=== PATIENT | female | born 1970 | race African-American/Black ===

== ENCOUNTER 2017-02-01 21:01 | Emergency (ER) | payer OTHER ==
[~2017-02-01 21:01] MED LIST: HYDR-971 PO; NAPR500T PO; NITR100C62 PO
[2017-02-01] MEDS ORDERED: KETOROLAC TROMETHAMINE 30 MG/ML INJ. IV ONE (22:15)
[2017-02-01] MEDS ORDERED: diphenhydrAMINE 50 MG/ML VIAL IVP ONE (22:15)
[2017-02-01] MEDS ORDERED: PROCHLORPERAZINE 10 MG/2 ML VIAL. IV ONE (22:15)
[2017-02-01 23:00] VITALS: BP 168/104
--- NOTE | 2017-02-01 23:09 | PHYS DOC ---
Past Medical History Past Medical History: Hypertension, Migraines Past Surgical History: Other Additional Past Surgical Histo: breast biposy Alcohol Use: None Drug Use: None Adult General Chief Complaint Chief Complaint: HEADACHE HPI HPI Patient is a 46 year old female who presents with gradual onset headache associated with nausea and photophobia developing over the past 3 days exactly like prior migraines. States symptoms are constant, now severe. She denies vision changes, numbness, tingling, weakness, dizziness, chest pain, dyspnea, abdominal pain, diarrhea, fever or chills, injury. Review of Systems Review of Systems Constitutional: Denies fever or chills [] Eyes: Denies change in visual acuity, redness, or eye pain [] HENT: Denies nasal congestion or sore throat [] Respiratory: Denies cough or shortness of breath [] Cardiovascular: No additional information not addressed in HPI [] GI: Denies abdominal pain, nausea, vomiting, bloody stools or diarrhea [] : Denies dysuria or hematuria [] Musculoskeletal: Denies back pain or joint pain [] Integument: Denies rash or skin lesions [] Neurologic: Denies focal weakness or sensory changes [] Endocrine: Denies polyuria or polydipsia [] Current Medications Current Medications Current Medications Medications (Trade) Dose Ordered Sig/Celine Start Time Stop Time Status Last Admin Dose Admin Diphenhydramine HCl (Benadryl) 25 mg 1X ONCE 02/01/17 22:15 02/01/17 22:16 DC 02/01/17 22:36 25 MG Ketorolac Tromethamine (Toradol) 15 mg 1X ONCE 02/01/17 22:15 02/01/17 22:16 DC 02/01/17 22:36 15 MG Prochlorperazine Edisylate (Compazine) 10 mg 1X ONCE 02/01/17 22:15 02/01/17 22:16 DC 02/01/17 22:35 10 MG Allergies Allergies Allergies Coded Allergies Type Severity Reaction Last Updated Verified No Known Drug Allergies 05/24/16 No Physical Exam Physical Exam Constitutional: Well developed, well nourished, mild distress, non-toxic appearance. Appears uncomfortable [] HENT: Normocephalic, atraumatic, bilateral external ears normal, oropharynx moist, no oral exudates, nose normal. [] Eyes: PERRLA, EOMI, conjunctiva normal, no discharge. [] Neck: Normal range of motion, no tenderness, supple. [] Cardiovascular:Heart rate regular rhythm [] Lungs & Thorax: Bilateral breath sounds clear to auscultation [] Abdomen: Bowel sounds normal, soft, no tenderness. [] Skin: Warm, dry, no erythema, no rash. [] Back: Normal range of motion. [] Extremities: No tenderness, ROM intact, no edema. [] Neurologic: Alert and oriented X 3, normal motor function, normal sensory function, no focal deficits noted, cranial nerves II through XII intact. [] Psychologic: Affect normal, judgement normal, mood normal. [] Current Patient Data Vital Signs Vital Signs Date Time Temp Pulse Resp B/P Pulse Ox O2 Delivery O2 Flow Rate FiO2 02/01/17 21:36 97.7 75 16 147/92 99 Room Air 97.7 Course & Med Decision Making Course & Med Decision Making Pertinent Labs and Imaging studies reviewed. (See chart for details) She is feeling better after medications and would like to go home. She is ambulatory with steady gait. Return precautions given. She understands and agrees with plan. Dragon Disclaimer Dragon Disclaimer This electronic medical record was generated, in whole or in part, using a voice recognition dictation system. Departure Departure Impression: Primary Impression: Headache Disposition: 01 HOME, SELF-CARE Condition: STABLE Referrals: MARY CARMONA MD (PCP) MAYRA JACOBS MD Patient Instructions: Migraine Headache, [id number] Additional Instructions: Take Tylenol or ibuprofen as needed for pain. Follow-up with your primary care doctor and neurology clinic. Please call neurology clinic for appointment. Return for any concerns. Problem Qualifiers Primary Impression: Headache Headache type: unspecified Headache chronicity pattern: episodic headache Intractability: not intractable Qualified Code: R51 - Headache Delta GUERRERO MD Feb 01, 2017 23:08
== END 2017-02-01 23:20 | disposition home or self-care (01) ==
LOC: ER 21:01
DX: R51 Headache (principal); G43.909 Migraine, unspecified, not intractable, without status migrainosus; I10 Essential (primary) hypertension
CPT/HCPCS: 96374; 96375; 99284; J0780; J1200; J1885

== ENCOUNTER → 2017-06-01 | Outpatient (CLI) | payer OTHER ==
--- NOTE | 2017-06-02 08:28 | RAD ---
DATE: 06/01/2017 EXAM: DIGITAL SCREEN BILAT W/CAD HISTORY: 46-year-old female for routine screening. Biopsy of the left breast with benign pathology in 2014. COMPARISON: Mammograms from 05/26/2016 and ultrasound from 11/24/2015 This study was interpreted with the benefit of Computerized Aided Detection (CAD ). FINDINGS: Breast Density: HETERO The breast parenchyma Is heterogeneiously dense, which could reduce sensitivity of mammography. Breast parenchyma level C. Redemonstrated are multiple bilateral oval and round masses with circumscribed obscure margins. 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 The left breast mass in the outer quadrant has increased in size measuring 2.4 x 2.0 cm, previously 1.5 x 1.1 cm. The dominant mass in the middle third left breast measures 3.3 x 2.7 cm, previously 2.3 x 1.7 cm. IMPRESSION: Interval increase in size of multiple bilateral oval and round masses. Previous workup demonstrated these to be simple cysts. However, given the size increase, ultrasound is recommended of selected lesions in bilateral breasts. If these are compatible with simple cysts, no further workup needed. BI-RADS CATEGORY: 0 INCOMPLETE: NEED ADDITIONAL IMAGING EVAULATION AND/OR PRIOR MAMMOGRAMS FOR COMPARISON RECOMMENDED FOLLOW-UP: PQRS compliance statement: Patient information was entered into a reminder system with a target due date for the next mammogram. Mammography is a sensitive method for finding small breast cancers, but it does not detect them all and is not a substitute for careful clinical examination. A negative mammogram does not negate a clinically suspicious finding and should not result in delay in biopsying a clinically suspicious abnormality. "Our facility is accredited by the [employer] Mammography Program." MTDD
== END | disposition home or self-care (01) ==
LOC: MAMMO 12:23
PROVIDERS: ATTEND Family Medicine
DX: Z12.31 Encounter for screening mammogram for malignant neoplasm of breast (principal)
CPT/HCPCS: G0202; 77067

== ENCOUNTER → 2017-06-15 | Outpatient (CLI) | payer OTHER ==
--- NOTE | 2017-06-15 08:47 | RAD ---
Indication mass is seen on screening ultrasound. Note is made of a recent mammogram 06/01/2017. On that study several masses were seen in both breasts. In the right breast at the 3:00 position 3 cm from the nipple there is a hypoechoic 3 cm mass compatible with a cyst. At the 9:00 position there are 3 masses, 5 cm from the nipple, also compatible with cysts the largest measuring approximately 2 cm. In the left breast at the 3:00 position 4 cm from the nipple there is an additional hypoechoic mass measuring 2.2 cm compatible with a cyst. At the 4:00 position there is an additional 3 cm mass also compatible with a cyst. The 6:30 position 3 cm from the nipple is an additional 3 cm mass also compatible with a cyst. At the 9:00 position again a 2.4 cm cyst is seen. IMPRESSION: Bilateral breast cysts. Follow-up mammography is suggested in May 2018 BI-RADS 2. Benign findings.
== END | disposition home or self-care (01) ==
LOC: US 07:58
PROVIDERS: ATTEND Family Medicine
DX: R92.8 Other abnormal and inconclusive findings on diagnostic imaging of breast (principal); N60.02 Solitary cyst of left breast; N60.01 Solitary cyst of right breast
CPT/HCPCS: 76641

== ENCOUNTER → 2018-03-10 | Outpatient (CLI) | payer OTHER | END | disposition home or self-care (01) | LOC: KCIC MAMMO 10:02 | DX: R92.2 Inconclusive mammogram (principal) | CPT/HCPCS: 76641; 77066; G0279 ==

== ENCOUNTER → 2018-03-23 | Outpatient (CLI) | payer OTHER ==
[~2018-03-23] MED LIST changes: -HYDR-971 PO; +LIDOCAINE 1% Multi-Dose 50 ML VIAL. INJ; -NAPR500T PO; -NITR100C62 PO
== END | disposition home or self-care (01) ==
LOC: US 11:44
DX: N60.82 Other benign mammary dysplasias of left breast (principal)
CPT/HCPCS: 10160; 19000; 76942; 88112; 88305

== ENCOUNTER 2019-12-03 00:05 | Inpatient (IN) | payer BC, OTHER ==
[~2019-12-03] VITALS: Ht 182.9 cm; Wt 105.0 kg
[~2019-12-03 00:05] MED LIST changes: +HYDR-3164 PO; -LIDOCAINE 1% Multi-Dose 50 ML VIAL. INJ; +NAPR-683 PO; +NITR100C62 PO
[2019-12-03] MEDS ORDERED: ASPIRIN CHEWABLE 81 MG TABLET. PO ONE (00:30)
[2019-12-03] MEDS ORDERED: NITROGLYCERIN SUBLINGUAL 0.4 MG BOTTLE OF 25. SL PRN (00:30)
[2019-12-03 00:44] LABS: BASO # 0.1 x10^3/uL (0.0-0.2); BASO % 1 % (0-3); EOS # 0.2 x10^3/uL (0.0-0.7); EOS % 2 % (0-3); HEMOGLOBIN 11.2 g/dL (12.0-15.5); LYMPH # 2.3 x10^3/uL (1.0-4.8); LYMPH % 24 % (24-48); MEAN CORPUSCULAR HEMOGLOBIN 28 pg (25-35); MEAN CORPUSCULAR HGB CONC 34 g/dL (31-37); MEAN CORPUSCULAR VOLUME 81 fL (79-100); MONO # 0.8 x10^3/uL (0.0-1.1); MONO % 9 % (0-9); NEUT # 6.2 x10^3/uL (1.8-7.7); NEUT % 65 % (31-73); PLATELET COUNT 441 x10^3/uL (140-400); RED BLOOD COUNT 4.07 x10^6/uL (3.50-5.40); RED CELL DISTRIBUTION WIDTH 17.7 % (11.5-14.5); WHITE BLOOD COUNT 9.5 x10^3/uL (4.0-11.0)
[2019-12-03 00:53] LABS: PROTHROMBIN TIME PATIENT 12.4 SEC (11.7-14.0)
[2019-12-03 00:56] LABS: CALCIUM 8.8 mg/dL (8.5-10.1); GFR 71.6; POTASSIUM 3.2 mmol/L (3.5-5.1)
[2019-12-03 01:02] LABS: ALBUMIN 3.3 g/dL (3.4-5.0); ALBUMIN/GLOBULIN RATIO 0.9 (1.0-1.7); MAGNESIUM 1.8 mg/dL (1.8-2.4); TOTAL BILIRUBIN 0.2 mg/dL (0.2-1.0)
--- NOTE | 2019-12-03 01:54 | PHYS DOC ---
Past Medical History Past Medical History: Hypertension, Migraines Past Surgical History: Other Additional Past Surgical Histo: breast biposy Smoking Status: Never Smoker Alcohol Use: None Drug Use: None Adult General Chief Complaint Chief Complaint: CHEST PAIN HPI HPI Patient is a 48 year old female with history of hypertension and migraine who presents with complaint of chest pain. Patient complaining of substernal sharp pain with radiation to her back and left shoulder afte about an hour of exercising at the gym at 1800 tonight as a constant pain and rated her pain 8/10. Patient complaining of shortness of breath, dizziness, palpitation and denies nausea, focal neuro deficit, fever and chills, cough and congestion. She went home and was able to fall asleep but woke up a few minutes prior to arrival to ER with severe substernal chest pain and rated her pain 9/10. Patient denies history of chest pain. Review of Systems Review of Systems Constitutional: Denies fever or chills [] Eyes: Denies change in visual acuity, redness, or eye pain [] HENT: Denies nasal congestion or sore throat [] Respiratory: Denies cough, reports shortness of breath [] Cardiovascular: No additional information not addressed in HPI [] GI: Denies abdominal pain, nausea, vomiting, bloody stools or diarrhea [] : Denies dysuria or hematuria [] Musculoskeletal: Denies back pain or joint pain [] Integument: Denies rash or skin lesions [] Neurologic: Denies headache, focal weakness or sensory changes [] Endocrine: Denies polyuria or polydipsia [] All other systems were reviewed and found to be within normal limits, except as documented in this note. Current Medications Current Medications Current Medications Medications (Trade) Dose Ordered Sig/[facility] Start Time Stop Time Status Last Admin Dose Admin Aspirin (Children'S Aspirin) 324 mg 1X ONCE 12/03/19 00:30 12/03/19 00:34 DC 12/03/19 00:45 324 MG Nitroglycerin (Nitrostat) 0.4 mg PRN Q5MIN PRN 12/03/19 00:30 12/04/19 00:29 DC 12/03/19 00:45 0.4 MG Allergies Allergies Allergies Coded Allergies Type Severity Reaction Last Updated Verified No Known Drug Allergies 05/24/16 No Physical Exam Physical Exam Constitutional: Well developed, well nourished, mild distress, non-toxic appearance. [] HENT: Normocephalic, atraumatic. Eyes: PERRLA, EOMI, conjunctiva normal, no discharge. [] Neck: Normal range of motion, no tenderness, supple, no stridor. [] Cardiovascular:Heart rate regular rhythm, no murmur [] Lungs & Thorax: Bilateral breath sounds clear to auscultation [] Abdomen: Bowel sounds normal, soft, no tenderness, no masses, no pulsatile masses. [] Skin: Warm, dry, no erythema, no rash. [] Back: No tenderness, no CVA tenderness. [] Extremities: No tenderness, no cyanosis, no clubbing, ROM intact, no edema. [] Neurologic: Alert and oriented X 3, no focal deficits noted. [] Psychologic: Affect normal, judgement normal, mood normal. [] Current Patient Data Vital Signs Vital Signs Date Time Temp Pulse Resp B/P (MAP) Pulse Ox O2 Delivery O2 Flow Rate FiO2 12/03/19 07:00 68 16 98 Room Air 12/03/19 04:00 155/86 (109) 12/03/19 00:17 98.6 98.6 Lab Values Laboratory Tests Test 12/03/19 00:23 White Blood Count 9.5 x10^3/uL (4.0-11.0) Red Blood Count 4.07 x10^6/uL (3.50-5.40) Hemoglobin 11.2 g/dL (12.0-15.5) L Hematocrit 33.0 % (36.0-47.0) L Mean Corpuscular Volume 81 fL (79-100) Mean Corpuscular Hemoglobin 28 pg (25-35) Mean Corpuscular Hemoglobin Concent 34 g/dL (31-37) Red Cell Distribution Width 17.7 % (11.5-14.5) H Platelet Count 441 x10^3/uL (140-400) H Neutrophils (%) (Auto) 65 % (31-73) Lymphocytes (%) (Auto) 24 % (24-48) Monocytes (%) (Auto) 9 % (0-9) Eosinophils (%) (Auto) 2 % (0-3) Basophils (%) (Auto) 1 % (0-3) Neutrophils # (Auto) 6.2 x10^3/uL (1.8-7.7) Lymphocytes # (Auto) 2.3 x10^3/uL (1.0-4.8) Monocytes # (Auto) 0.8 x10^3/uL (0.0-1.1) Eosinophils # (Auto) 0.2 x10^3/uL (0.0-0.7) Basophils # (Auto) 0.1 x10^3/uL (0.0-0.2) Prothrombin Time 12.4 SEC (11.7-14.0) Prothrombin Time INR 1.0 (0.8-1.1) Sodium Level 142 mmol/L (136-145) Potassium Level 3.2 mmol/L (3.5-5.1) L Chloride Level 107 mmol/L (98-107) Carbon Dioxide Level 26 mmol/L (21-32) Anion Gap 9 (6-14) Blood Urea Nitrogen 13 mg/dL (7-20) Creatinine 1.0 mg/dL (0.6-1.0) Estimated GFR (Cockcroft-Gault) 71.6 BUN/Creatinine Ratio 13 (6-20) Glucose Level 112 mg/dL (70-99) H Calcium Level 8.8 mg/dL (8.5-10.1) Magnesium Level 1.8 mg/dL (1.8-2.4) Total Bilirubin 0.2 mg/dL (0.2-1.0) Aspartate Amino Transferase (AST) 33 U/L (15-37) Alanine Aminotransferase (ALT) 33 U/L (14-59) Alkaline Phosphatase 73 U/L (46-116) Creatine Kinase 903 U/L (26-192) H Troponin I Quantitative < 0.017 ng/mL (0.000-0.055) XA-Oqc-L-Type Natriuretic Peptide 53 pg/mL (0-124) Total Protein 7.0 g/dL (6.4-8.2) Albumin 3.3 g/dL (3.4-5.0) L Albumin/Globulin Ratio 0.9 (1.0-1.7) L Lipase 155 U/L (73-393) Laboratory Tests 12/03/19 00:23 Laboratory Tests 12/03/19 00:23 EKG EKG EKG interpreted by me. EKG at 0011 showed normal sinus rhythm at rate of 77, lef tward axis, normal ND 04, prolonged QT, nonspecific T-wave abnormality, no acute ST-T wave elevation. Radiology/Procedures Radiology/Procedures [facility] [address] [place] [address] IMAGING REPORT Signed PATIENT: MARYBEL WATERMAN ACCOUNT: [id number] : 1970 LOCATION: ER AGE: 48 SEX: F EXAM STATUS: REG ER ORD. PHYSICIAN: SANTIAGO DE JESUS MD REASON: chest pain PROCEDURE: PORTABLE CHEST 1V Single view chest dated 12/03/2019: Comparison made to 05/24/2016. Clinical Indication: Chest pain. Findings: Single upright portable exam of the chest was performed. Heart size and mediastinal contours are within normal limits given technique. The lungs are clear without evidence of focal consolidation. Vascular interstitium is within normal limits. No apparent pleural effusion or pneumothorax. Impression:: No acute radiographic abnormality. Electronically signed by: Stephane Duron MD (12/03/2019 2:21 AM) [id number] DICTATED and SIGNED BY: STEPHANE DURON MD DATE: 12/03/19 0221 Course & Med Decision Making Course & Med Decision Making Pertinent Labs and Imaging studies reviewed. (See chart for details) Patient requiring admission for further evaluation and treatment. Discussed with Dr. Vega who is in agreement with admission. Discussed findings and plan with patient and family, who acknowledge understanding and agreement. Dragon Disclaimer Dragon Disclaimer This electronic medical record was generated, in whole or in part, using a voice recognition dictation system. Departure Departure Impression: Primary Impression: Acute chest pain Additional Impression: Rhabdomyolysis Disposition: 09 ADMITTED INPATIENT (at 0149) Admitting Physician: PUJA (Dr. Vega accepted admission) Condition: IMPROVED Referrals: CHERI QUINN APRN (PCP) Scripts Pantoprazole Sodium (PROTONIX ) 40 Mg Tablet. 40 MG PO DAILYAC for GERD for 30 Days, #30 TAB Prov: TRUE BRONSON MD 12/04/19 Potassium Chloride (KLOR-CON M20) 20 Meq Tab.er.prt 20 MEQ PO DAILYWBKFT for supplement for 14 Days, #14 TAB.SR Prov: TRUE BRONSON MD 12/04/19 Lisinopril (LISINOPRIL) 5 Mg Tablet 5 MG PO DAILY for blood pressure for 30 Days, #30 TAB Prov: TRUE BRONSON MD 12/04/19 Problem Qualifiers Additional Impression: Rhabdomyolysis Rhabdomyolysis type: non-traumatic Qualified Codes: M62.82 - Rhabdomyolysis SANTIAGO DE JESUS MD Dec 03, 2019 01:54
--- NOTE | 2019-12-03 02:10 | EKG ---
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
--- NOTE | 2019-12-03 02:23 | RAD ---
Single view chest dated 12/03/2019: Comparison made to 05/24/2016. Clinical Indication: Chest pain. Findings: Single upright portable exam of the chest was performed. Heart size and mediastinal contours are within normal limits given technique. The lungs are clear without evidence of focal consolidation. Vascular interstitium is within normal limits. No apparent pleural effusion or pneumothorax. Impression:: No acute radiographic abnormality. Electronically signed by: Stephane Duron MD (12/03/2019 2:21 AM) [id number]
--- NOTE | 2019-12-03 08:46 | PDOC1 ---
History and Physical Date of Admission Date of Admission DATE: 12/03/19 TIME: 08:46 Identification/Chief Complaint Chief Complaint seen in er with atypical chest discomfort, sharp pain, 48 year old female with history of hypertension who presents with complaint of chest pain. complaining of substernal sharp pain with radiation to her back and left shoulder after exercising about an hour exercising at the gym at 1800 tonight as a constant pain and ataxia pain 8/10. complaining of shortness of breath and dizziness and palpitation and denies nausea, focal neuro deficit, fever and chills, cough and congestion some ruq pain after meals Past Medical History Past Medical History Past Medical History Past Medical History: Hypertension, Migraines Past Surgical History: Other Additional Past Surgical Histo: breast biposy Smoking Status: Never Smoker Alcohol Use: None Drug Use: None fhx obesity Family History Family History: Heart Disease Social History Smoke: <1 pack per day ALCOHOL: occassional Drugs: None Current Problem List Problem List Problems Medical Problems: (1) Rhabdomyolysis Status: Acute Current Medications Current Medications Current Medications Aspirin (Children'S Aspirin) 324 mg 1X ONCE PO Last administered on 12/03/19at 00:45; Start 12/03/19 at 00:30; Stop 12/03/19 at 00:34; Status DC Nitroglycerin (Nitrostat) 0.4 mg PRN Q5MIN PRN SL CP RATING > 1/10 Last adminis tered on 12/03/19at 00:45; Start 12/03/19 at 00:30; Stop 12/04/19 at 00:29 Active Scripts Active Macrobid 100 Mg Capsule (Nitrofurantoin Monohyd/M-Cryst) 100 Mg Capsule 1 Cap PO BID Naprosyn (Naproxen) 500 Mg Tablet 1 Tab PO BID Bethany 5-325 Tablet (Acetaminophen/Hydrocodone Bitart) 1 Each Tablet 1 Tab PO PRN Q4-6HRS PRN Allergies Allergies: Coded Allergies: No Known Drug Allergies (Unverified , 05/24/16) ROS Review of System Review of Systems Review of Systems Constitutional: Denies fever or chills [] Eyes: Denies change in visual acuity, redness, or eye pain [] HENT: Denies nasal congestion or sore throat [] Respiratory: Denies cough, reports shortness of breath [] Cardiovascular: No additional information not addressed in HPI [] GI: ruq mild abdominal pain, no nausea, vomiting, bloody stools or diarrhea [] : Denies dysuria or hematuria [] Musculoskeletal: Denies back pain or joint pain [] Integument: Denies rash or skin lesions [] Neurologic: Denies headache, focal weakness or sensory changes [] Endocrine: Denies polyuria or polydipsia [] 14 pt systems were reviewed and found to be within normal limits, except as documented General: No: Chills, Night Sweats, Fatigue, Malaise, Appetite, Other Hematological and Lymphatic: No: Bleeding Problems, Blood Clots, Blood Transfusions, Brusing, Night Sweats, Pallor, Swollen Lymph Nodes, Other Respiratory: No: Cough, Hemoptysis, Orthopnea, Pleuritic Pain, Shortness of breath, SOB with excertion, Sputum Changes, Stridor, Tachypnea, Wheezing, Other Cardiovascular: yes Chest Pain; No Palpitations, No Orthopnea, No Paroxysmal Noc. Dyspnea, No Edema, No Lt Headedness, No Other Physical Exam Physical Exam Physical Exam Physical Exam Constitutional: Well developed, well nourished, mild distress, non-toxic appearance. [] HENT: Normocephalic, atraumatic. Eyes: PERRLA, EOMI, conjunctiva normal, no discharge. [] Neck: Normal range of motion, no tenderness, supple, no stridor. [] Cardiovascular:Heart rate regular rhythm, no murmur [] Lungs & Thorax: Bilateral breath sounds clear to auscultation [] Abdomen: Bowel sounds normal, soft, no tenderness, no masses, no pulsatile masses. [] Skin: Warm, dry, no erythema, no rash. [] Back: No tenderness, no CVA tenderness. [] Extremities: No tenderness, no cyanosis, no clubbing, ROM intact, no edema. [] Neurologic: Alert and oriented X 3, no focal deficits noted. [] Psychologic: Affect normal, judgement normal, mood normal. [] General: Alert, Oriented X3, Cooperative HEENT: Atraumatic, EOMI, Mucous membr. moist/pink Lungs: Clear to auscultation, Normal air movement Heart: RRR Breasts: Not examined Abdomen: Soft Rectal Exam: not examined PELVIC: Examination not indicated Extremities: No cyanosis, No edema Neuro: Normal speech, Cranial nerves 3-12 NL Psych/Mental Status: Mental status NL, Mood NL Vitals Vitals Vital Signs Date Time Temp Pulse Resp B/P (MAP) Pulse Ox O2 Delivery O2 Flow Rate FiO2 12/03/19 04:00 87 18 155/86 (109) 100 Room Air 12/03/19 00:17 98.6 98.6 Labs Labs Laboratory Tests Test 12/03/19 00:23 White Blood Count 9.5 x10^3/uL (4.0-11.0) Red Blood Count 4.07 x10^6/uL (3.50-5.40) Hemoglobin 11.2 g/dL (12.0-15.5) Hematocrit 33.0 % (36.0-47.0) Mean Corpuscular Volume 81 fL (79-100) Mean Corpuscular Hemoglobin 28 pg (25-35) Mean Corpuscular Hemoglobin Concent 34 g/dL (31-37) Red Cell Distribution Width 17.7 % (11.5-14.5) Platelet Count 441 x10^3/uL (140-400) Neutrophils (%) (Auto) 65 % (31-73) Lymphocytes (%) (Auto) 24 % (24-48) Monocytes (%) (Auto) 9 % (0-9) Eosinophils (%) (Auto) 2 % (0-3) Basophils (%) (Auto) 1 % (0-3) Neutrophils # (Auto) 6.2 x10^3/uL (1.8-7.7) Lymphocytes # (Auto) 2.3 x10^3/uL (1.0-4.8) Monocytes # (Auto) 0.8 x10^3/uL (0.0-1.1) Eosinophils # (Auto) 0.2 x10^3/uL (0.0-0.7) Basophils # (Auto) 0.1 x10^3/uL (0.0-0.2) Prothrombin Time 12.4 SEC (11.7-14.0) Prothromb Time International Ratio 1.0 (0.8-1.1) Sodium Level 142 mmol/L (136-145) Potassium Level 3.2 mmol/L (3.5-5.1) Chloride Level 107 mmol/L (98-107) Carbon Dioxide Level 26 mmol/L (21-32) Anion Gap 9 (6-14) Blood Urea Nitrogen 13 mg/dL (7-20) Creatinine 1.0 mg/dL (0.6-1.0) Estimated GFR (Cockcroft-Gault) 71.6 BUN/Creatinine Ratio 13 (6-20) Glucose Level 112 mg/dL (70-99) Calcium Level 8.8 mg/dL (8.5-10.1) Magnesium Level 1.8 mg/dL (1.8-2.4) Total Bilirubin 0.2 mg/dL (0.2-1.0) Aspartate Amino Transf (AST/SGOT) 33 U/L (15-37) Alanine Aminotransferase (ALT/SGPT) 33 U/L (14-59) Alkaline Phosphatase 73 U/L (46-116) Creatine Kinase 903 U/L (26-192) Troponin I Quantitative < 0.017 ng/mL (0.000-0.055) WM-Jbi-W-Type Natriuretic Peptide 53 pg/mL (0-124) Total Protein 7.0 g/dL (6.4-8.2) Albumin 3.3 g/dL (3.4-5.0) Albumin/Globulin Ratio 0.9 (1.0-1.7) Lipase 155 U/L (73-393) Laboratory Tests Test 12/03/19 00:23 White Blood Count 9.5 x10^3/uL (4.0-11.0) Red Blood Count 4.07 x10^6/uL (3.50-5.40) Hemoglobin 11.2 g/dL (12.0-15.5) Hematocrit 33.0 % (36.0-47.0) Mean Corpuscular Volume 81 fL (79-100) Mean Corpuscular Hemoglobin 28 pg (25-35) Mean Corpuscular Hemoglobin Concent 34 g/dL (31-37) Red Cell Distribution Width 17.7 % (11.5-14.5) Platelet Count 441 x10^3/uL (140-400) Neutrophils (%) (Auto) 65 % (31-73) Lymphocytes (%) (Auto) 24 % (24-48) Monocytes (%) (Auto) 9 % (0-9) Eosinophils (%) (Auto) 2 % (0-3) Basophils (%) (Auto) 1 % (0-3) Neutrophils # (Auto) 6.2 x10^3/uL (1.8-7.7) Lymphocytes # (Auto) 2.3 x10^3/uL (1.0-4.8) Monocytes # (Auto) 0.8 x10^3/uL (0.0-1.1) Eosinophils # (Auto) 0.2 x10^3/uL (0.0-0.7) Basophils # (Auto) 0.1 x10^3/uL (0.0-0.2) Prothrombin Time 12.4 SEC (11.7-14.0) Prothromb Time International Ratio 1.0 (0.8-1.1) Sodium Level 142 mmol/L (136-145) Potassium Level 3.2 mmol/L (3.5-5.1) Chloride Level 107 mmol/L (98-107) Carbon Dioxide Level 26 mmol/L (21-32) Anion Gap 9 (6-14) Blood Urea Nitrogen 13 mg/dL (7-20) Creatinine 1.0 mg/dL (0.6-1.0) Estimated GFR (Cockcroft-Gault) 71.6 BUN/Creatinine Ratio 13 (6-20) Glucose Level 112 mg/dL (70-99) Calcium Level 8.8 mg/dL (8.5-10.1) Magnesium Level 1.8 mg/dL (1.8-2.4) Total Bilirubin 0.2 mg/dL (0.2-1.0) Aspartate Amino Transf (AST/SGOT) 33 U/L (15-37) Alanine Aminotransferase (ALT/SGPT) 33 U/L (14-59) Alkaline Phosphatase 73 U/L (46-116) Creatine Kinase 903 U/L (26-192) Troponin I Quantitative < 0.017 ng/mL (0.000-0.055) XB-Toj-V-Type Natriuretic Peptide 53 pg/mL (0-124) Total Protein 7.0 g/dL (6.4-8.2) Albumin 3.3 g/dL (3.4-5.0) Albumin/Globulin Ratio 0.9 (1.0-1.7) Lipase 155 U/L (73-393) VTE Prophylaxis Ordered VTE Prophylaxis Devices: Yes VTE Pharmacological Prophylaxi: Yes Assessment/Plan Assessment/Plan impression 1. CHEST pain with atypical features 2. morbid obesity 3. possible GERD 4. RUQ discomfort 5. hypertension plan admit cvc cardiology consult gb sono trend troponin i dvt prophylaxis norvasc 5 mg po daily 48 year old female with history of hypertension and mitral who presents with complaint of chest pain. Patient complaining of substernal sharp pain with radiation to her back and left shoulder after exercising about an hour exercising at the gym at 1800 tonight as a constant pain and ataxia pain 8/10. Patient complaining of shortness of breath and dizziness and palpitation and denies nausea, focal neuro deficit, fever and chills, cough and congestion. TRUE BRONSON MD Dec 03, 2019 08:46
[2019-12-03] MEDS ORDERED: HYDROcodone/APAP 5/325MG 1 TAB TABLET PO ONE (09:15)
--- NOTE | 2019-12-03 10:13 | PDOC2 ---
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 Finnegan SOURCE Source: Chart review, Patient HISTORY OF PRESENT ILLNESS HISTORY OF PRESENT ILLNESS This is a 48 yo female who presented secondary to chest pain. Patient reports she has recently been working out. Often intense routine. While at the gym yesterday, began having stabbing pain in her left chest. Associated with dizziness. Was worse with deep breathing. No diaphoresis palpitations, SOA, or n ausea/vomiting. Pain persisted yesterday and was slightly worse when she woke up this morning so she came to the ED for further evaluation and treatment. Left chest is slightly tender upon palpitation. PAST MEDICAL HISTORY Cardiovascular: HTN Heme/Onc: Anemia NOS PAST SURGICAL HISTORY Past Surgical History: No pertinent history FAMILY HISTORY Family History: Diabetes, Hypertension SOCIAL HISTORY Smoke: No ALCOHOL: none Drugs: None Lives: with Family CURRENT MEDICATIONS CURRENT MEDICATIONS Current Medications Medications (Trade) Dose Ordered Sig/Celine Route PRN Reason Start Time Stop Time Status Last Admin Dose Admin Aspirin (Children'S Aspirin) 324 mg 1X ONCE PO 12/03/19 00:30 12/03/19 00:34 DC 12/03/19 00:45 Nitroglycerin (Nitrostat) 0.4 mg PRN Q5MIN PRN SL CP RATING > 1/10 12/03/19 00:30 12/04/19 00:29 12/03/19 00:45 Acetaminophen/ Hydrocodone Bitart (Lortab 5/325) 1 tab 1X ONCE PO 12/03/19 09:15 12/03/19 09:18 DC 12/03/19 09:24 ALLERGIES ALLERGIES: Coded Allergies: No Known Drug Allergies (Unverified , 05/24/16) ROS Review of System 14 point ROS conducted with pertinent positives noted above in HPI PHYSICAL EXAM General: Alert, Oriented X3, Cooperative, No acute distress HEENT: Atraumatic, Mucous membr. moist/pink Lungs: Clear to auscultation, Normal air movement, Other (central chest tenderness) Heart: Regular rate, Normal S1, Normal S2 Abdomen: Soft, No tenderness Extremities: No edema, Normal pulses Skin: No significant lesion Neuro: Normal speech, Sensation intact Psych/Mental Status: Mental status NL, Mood NL MUSCULOSKELETAL: Osteoarthritic changes both hands VITALS/I&O VITALS/I&O: Vital Signs Date Time Temp Pulse Resp B/P (MAP) Pulse Ox O2 Delivery O2 Flow Rate FiO2 12/03/19 04:00 87 18 155/86 (109) 100 Room Air 12/03/19 00:17 98.6 98.6 LABS Lab: Laboratory Tests Test 12/03/19 00:23 White Blood Count 9.5 x10^3/uL (4.0-11.0) Red Blood Count 4.07 x10^6/uL (3.50-5.40) Hemoglobin 11.2 g/dL (12.0-15.5) L Hematocrit 33.0 % (36.0-47.0) L Mean Corpuscular Volume 81 fL (79-100) Mean Corpuscular Hemoglobin 28 pg (25-35) Mean Corpuscular Hemoglobin Concent 34 g/dL (31-37) Red Cell Distribution Width 17.7 % (11.5-14.5) H Platelet Count 441 x10^3/uL (140-400) H Neutrophils (%) (Auto) 65 % (31-73) Lymphocytes (%) (Auto) 24 % (24-48) Monocytes (%) (Auto) 9 % (0-9) Eosinophils (%) (Auto) 2 % (0-3) Basophils (%) (Auto) 1 % (0-3) Neutrophils # (Auto) 6.2 x10^3/uL (1.8-7.7) Lymphocytes # (Auto) 2.3 x10^3/uL (1.0-4.8) Monocytes # (Auto) 0.8 x10^3/uL (0.0-1.1) Eosinophils # (Auto) 0.2 x10^3/uL (0.0-0.7) Basophils # (Auto) 0.1 x10^3/uL (0.0-0.2) Prothrombin Time 12.4 SEC (11.7-14.0) Prothrombin Time INR 1.0 (0.8-1.1) Sodium Level 142 mmol/L (136-145) Potassium Level 3.2 mmol/L (3.5-5.1) L Chloride Level 107 mmol/L (98-107) Carbon Dioxide Level 26 mmol/L (21-32) Anion Gap 9 (6-14) Blood Urea Nitrogen 13 mg/dL (7-20) Creatinine 1.0 mg/dL (0.6-1.0) Estimated GFR (Cockcroft-Gault) 71.6 BUN/Creatinine Ratio 13 (6-20) Glucose Level 112 mg/dL (70-99) H Calcium Level 8.8 mg/dL (8.5-10.1) Magnesium Level 1.8 mg/dL (1.8-2.4) Total Bilirubin 0.2 mg/dL (0.2-1.0) Aspartate Amino Transferase (AST) 33 U/L (15-37) Alanine Aminotransferase (ALT) 33 U/L (14-59) Alkaline Phosphatase 73 U/L (46-116) Creatine Kinase 903 U/L (26-192) H Troponin I Quantitative < 0.017 ng/mL (0.000-0.055) HO-Hex-I-Type Natriuretic Peptide 53 pg/mL (0-124) Total Protein 7.0 g/dL (6.4-8.2) Albumin 3.3 g/dL (3.4-5.0) L Albumin/Globulin Ratio 0.9 (1.0-1.7) L Lipase 155 U/L (73-393) Laboratory Tests 12/03/19 00:23 Laboratory Tests 12/03/19 00:23 ASSESSMENT/PLAN ASSESSMENT/PLAN 1. Chest pain, atypical. AMI ruled out. Most probably MSK in origin 2. Elevated CK; has been working out intensely in recent weeks 3. Hypertension; mildly elevated. Has been elevated recently. PCP discussed initiating antiHTN therapy. 4. Hypokalemia Recommendations Lipids Replace K IVFs Echo to assess LV systolic function Start low-dose lisinopril Supportive care KURT ASHLEY MD 12/03/192019: CARDIAC CONSULT ASSESSMENT/PLAN ASSESSMENT/PLAN Patient seen and examined. Agree with FLIGHT AGENT's assessment and plan. CP with atypical features and most probably musculoskeletal OR ruled out Check 2D echo to assess LVF and rule out WMA Ischemic workup could be considered as outpatient Agree with starting lisinopril for better BP control Thank you for our consultation RASHARD BOSTON APRN Dec 03, 2019 10:12 KURT ASHLEY MD Dec 03, 2019 20:20
[2019-12-03] MEDS ORDERED: POTASSIUM CHLORIDE 20 MEQ TABLET.ER. PO ONE ×2 (10:15→14:30)
[2019-12-03 10:37] VITALS: BP 153/95
[2019-12-03 10:42] LABS: CHOLESTEROL/HDL RATIO 2.6
[2019-12-03] MEDS: LISINOPRIL 5 MG TABLET. PO SCH (11:42)
[2019-12-03] MEDS: IV 1/2 NORMAL SALINE 1,000 ML IV SCH (11:43)
[2019-12-03 15:14] VITALS: BP 135/77
[2019-12-03] MEDS ORDERED: HYDROcodone/APAP 5/325MG 1 TAB TABLET PO PRN (17:00)
[2019-12-03 19:00] VITALS: BP 118/84
[2019-12-03 23:00] VITALS: BP 119/76
--- NOTE | 2019-12-04 00:15 | RAD ---
Right upper quadrant ultrasound dated 12/03/2019. No comparison available. Clinical data indication: Pain. FINDINGS: Gallbladder normal in size and echogenicity. No gallbladder wall thickening or pericholecystic fluid. Liver is homogeneous in echogenicity. No focal hepatic mass. Intrahepatic and extra hepatic biliary tree normal in caliber. The common bile duct measures 4 mm. Right kidney measures 11.5 cm in length without hydronephrosis. Left kidney was not imaged. Pancreas is not well evaluated due to overlying bowel gas. Limited imaged portions of the aorta and IVC unremarkable. No significant ascites. IMPRESSION: 1. No acute sonographic abnormality. Electronically signed by: Stephane Duron MD (12/04/2019 12:12 AM) [id number]
[2019-12-04 03:00] VITALS: BP 135/82
[2019-12-04 07:00] VITALS: BP 135/82
[2019-12-04] MEDS: IV 1/2 NORMAL SALINE 1,000 ML IV SCH (08:00)
[2019-12-04] MEDS ORDERED: POTASSIUM CHLORIDE 20 MEQ TABLET.ER. PO SCH (08:00)
--- NOTE | 2019-12-04 08:33 | CARD ---
MR#: [id number] Date of Study: 12/03/2019 Ordering Physician: RASHARD BOSTON, Referring Physician: RASHARD BOSTON, Tech: Deena Gibson APPROVED REPORT EXAM: Two-dimensional and M-mode echocardiogram with Doppler and color Doppler. Other Information Quality : AverageHR: 76bpm INDICATION Chest Pain RISK FACTORS Hypertension 2D DIMENSIONS RVDd2.8 (2.9-3.5cm)Left Atrium(2D)3.5 (1.6-4.0cm) IVSd1.0 (0.7-1.1cm)Aortic Root(2D)2.9 (2.0-3.7cm) LVDd5.2 (3.9-5.9cm)LVOT Diameter2.1 (1.8-2.4cm) PWd1.1 (0.7-1.1cm)LVDs2.6 (2.5-4.0cm) FS (%) 50.8 %SV108.0 ml LVEF(%)81.7 (>50%) Aortic Valve AoV Peak Kwame.163.0cm/sAoV VTI26.3cm AO Peak GR.10.6mmHgLVOT VTI 22.13cm AO Mean GR.5mmHg Mitral Valve MV E Vdwslyup25.6cm/sMV E Peak Gr.4mmHg MV DECEL [id number] A Lnvopblw79.0cm/s MV E Mean Gr.2mmHgE/A Ratio1.3 TDI Lateral E' P. V12.36cm/sMedial E' P. V13.32cm/s E/Lateral E'6.2E/Medial E'5.8 Tricuspid Valve TR P. Vbnwrlrd406ut/sRAP [id number] TR Peak Gr.19oqBwOECG71dlFs Pulmonary Vein S1 Cyltrlug14.2cm/sS2 Dxesdcqp17.12cm/s D2 Hjllbxmu66.1cm/sPVa [id number] LEFT VENTRICLE The left ventricle is normal size. There is normal left ventricular wall thickness. The left ventricu lar systolic function is normal and the ejection fraction is within normal range. The Ejection Fracti on is 60-65%. There is normal LV segmental wall motion. The left ventricular diastolic function and f illing is normal for age. RIGHT VENTRICLE The right ventricle is normal size. There is normal right ventricular wall thickness. The right ventr icular systolic function is normal. ATRIA The left atrium size is normal. The right atrium size is normal. The interatrial septum is intact wit h no evidence for an atrial septal defect or patent foramen ovale as noted on 2-D or Doppler imaging. AORTIC VALVE The aortic valve is normal in structure and function. Doppler and Color Flow revealed no significant aortic regurgitation. There is no significant aortic valvular stenosis. MITRAL VALVE The mitral valve is normal in structure and function. There is no evidence of mitral valve prolapse. There is no mitral valve stenosis. Doppler and Color Flow revealed no mitral valve regurgitation note d. TRICUSPID VALVE The tricuspid valve is normal in structure and function. Doppler and Color Flow revealed trace to mil d tricuspid regurgitation with an estimated PAP of 31 mmHg. There is no tricuspid valve stenosis. PULMONIC VALVE The pulmonary valve is normal in structure and function. Doppler and Color Flow revealed no pulmonic valvular regurgitation. There is no pulmonic valvular stenosis. GREAT VESSELS The aortic root is normal in size. The ascending aorta is normal in size. The IVC is normal in size a nd collapses >50% with inspiration. PERICARDIAL EFFUSION There is no evidence of significant pericardial effusion. Critical Notification Critical Value: No <Conclusion> The left ventricular systolic function is normal and the ejection fraction is within normal range. Th e Ejection Fraction is 60-65%. There is normal LV segmental wall motion. Signed by : James Rouse, Electronically Approved : 12/04/2019 08:33:08
[2019-12-04] MEDS: LISINOPRIL 5 MG TABLET. PO SCH (09:00)
[2019-12-04 09:38] VITALS: BP 135/82
[2019-12-04 09:59] LABS: CALCIUM 8.5 mg/dL (8.5-10.1); CREATININE 0.8 mg/dL (0.6-1.0); GFR 92.6; POTASSIUM 3.8 mmol/L (3.5-5.1)
[2019-12-04 10:45] VITALS: BP 145/78
--- NOTE | 2019-12-04 10:54 | PDOC ---
PROGRESS NOTES History of Present Illness History of Present Illness VTE Prophylaxis Ordered VTE Prophylaxis Devices: Yes VTE Pharmacological Prophylaxi: Yes discharge dx Assessment/Plan impression 1. CHEST pain with atypical features 2. morbid obesity 3. possible GERD 4. RUQ discomfort 5. hypertension plan admit cvc cardiology consult gb sono trend troponin i neg x 3 dvt prophylaxis norvasc 5 mg po daily protonix 40mg po daily d/c planning 27 min Vitals Vitals Vital Signs Date Time Temp Pulse Resp B/P (MAP) Pulse Ox O2 Delivery O2 Flow Rate FiO2 12/04/19 10:45 66 14 145/78 (100) Room Air 12/04/19 07:00 98.0 97 98.0 Physical Exam General: Alert, Oriented X3, Cooperative, No acute distress Heart: Regular rate, Normal S1, Normal S2 Abdomen: Normal bowel sounds, Soft, No tenderness Extremities: No cyanosis, No edema, Normal pulses Skin: No significant lesion Labs LABS Right upper quadrant ultrasound dated 12/03/2019. No comparison available. Clinical data indication: Pain. FINDINGS: Gallbladder normal in size and echogenicity. No gallbladder wall thickening or pericholecystic fluid. Liver is homogeneous in echogenicity. No focal hepatic mass. Intrahepatic and extra hepatic biliary tree normal in caliber. The common bile duct measures 4 mm. Right kidney measures 11.5 cm in length without hydronephrosis. Left kidney was not imaged. Pancreas is not well evaluated due to overlying bowel gas. Limited imaged portions of the aorta and IVC unremarkable. No significant ascites. IMPRESSION: 1. No acute sonographic abnormality. Electronically signed by: Jose Eduardo Duron MD (12/04/2019 12:12 AM) [id number] DICTATED and SIGNED BY: JOSE EDUARDO DURON MD DATE: 12/04/19 0012 Laboratory Tests Test 12/04/19 09:15 Sodium Level 143 mmol/L (136-145) Potassium Level 3.8 mmol/L (3.5-5.1) Chloride Level 107 mmol/L (98-107) Carbon Dioxide Level 28 mmol/L (21-32) Anion Gap 8 (6-14) Blood Urea Nitrogen 9 mg/dL (7-20) Creatinine 0.8 mg/dL (0.6-1.0) Estimated GFR (Cockcroft-Gault) 92.6 Glucose Level 170 mg/dL (70-99) Calcium Level 8.5 mg/dL (8.5-10.1) Creatine Kinase 223 U/L (26-192) Assessment and Plan Assessmemt and Plan Problems Medical Problems: (1) Rhabdomyolysis Status: Acute Comment Review of Relevant I have reviewed the following items livier (where applicable) has been applied. Labs Laboratory Tests Test 12/03/19 00:23 12/03/19 09:55 12/04/19 09:15 White Blood Count 9.5 x10^3/uL (4.0-11.0) Red Blood Count 4.07 x10^6/uL (3.50-5.40) Hemoglobin 11.2 g/dL (12.0-15.5) Hematocrit 33.0 % (36.0-47.0) Mean Corpuscular Volume 81 fL (79-100) Mean Corpuscular Hemoglobin 28 pg (25-35) Mean Corpuscular Hemoglobin Concent 34 g/dL (31-37) Red Cell Distribution Width 17.7 % (11.5-14.5) Platelet Count 441 x10^3/uL (140-400) Neutrophils (%) (Auto) 65 % (31-73) Lymphocytes (%) (Auto) 24 % (24-48) Monocytes (%) (Auto) 9 % (0-9) Eosinophils (%) (Auto) 2 % (0-3) Basophils (%) (Auto) 1 % (0-3) Neutrophils # (Auto) 6.2 x10^3/uL (1.8-7.7) Lymphocytes # (Auto) 2.3 x10^3/uL (1.0-4.8) Monocytes # (Auto) 0.8 x10^3/uL (0.0-1.1) Eosinophils # (Auto) 0.2 x10^3/uL (0.0-0.7) Basophils # (Auto) 0.1 x10^3/uL (0.0-0.2) Prothrombin Time 12.4 SEC (11.7-14.0) Prothromb Time International Ratio 1.0 (0.8-1.1) Sodium Level 142 mmol/L (136-145) 143 mmol/L (136-145) Potassium Level 3.2 mmol/L (3.5-5.1) 3.8 mmol/L (3.5-5.1) Chloride Level 107 mmol/L (98-107) 107 mmol/L (98-107) Carbon Dioxide Level 26 mmol/L (21-32) 28 mmol/L (21-32) Anion Gap 9 (6-14) 8 (6-14) Blood Urea Nitrogen 13 mg/dL (7-20) 9 mg/dL (7-20) Creatinine 1.0 mg/dL (0.6-1.0) 0.8 mg/dL (0.6-1.0) Estimated GFR (Cockcroft-Gault) 71.6 92.6 BUN/Creatinine Ratio 13 (6-20) Glucose Level 112 mg/dL (70-99) 170 mg/dL (70-99) Calcium Level 8.8 mg/dL (8.5-10.1) 8.5 mg/dL (8.5-10.1) Magnesium Level 1.8 mg/dL (1.8-2.4) Total Bilirubin 0.2 mg/dL (0.2-1.0) Aspartate Amino Transf (AST/SGOT) 33 U/L (15-37) Alanine Aminotransferase (ALT/SGPT) 33 U/L (14-59) Alkaline Phosphatase 73 U/L (46-116) Creatine Kinase 903 U/L (26-192) 223 U/L (26-192) Troponin I Quantitative < 0.017 ng/mL (0.000-0.055) < 0.017 ng/mL (0.000-0.055) XT-Ypc-M-Type Natriuretic Peptide 53 pg/mL (0-124) Total Protein 7.0 g/dL (6.4-8.2) Albumin 3.3 g/dL (3.4-5.0) Albumin/Globulin Ratio 0.9 (1.0-1.7) Lipase 155 U/L (73-393) Triglycerides Level 40 mg/dL (0-150) Cholesterol Level 132 mg/dL (0-200) LDL Cholesterol, Calculated 73 mg/dL (0-100) VLDL Cholesterol, Calculated 8 mg/dL (0-40) Non-HDL Cholesterol Calculated 81 mg/dL (0-129) HDL Cholesterol 51 mg/dL (40-60) Cholesterol/HDL Ratio 2.6 Thyroid Stimulating Hormone (TSH) 2.329 uIU/mL (0.358-3.74) Laboratory Tests Test 12/04/19 09:15 Sodium Level 143 mmol/L (136-145) Potassium Level 3.8 mmol/L (3.5-5.1) Chloride Level 107 mmol/L (98-107) Carbon Dioxide Level 28 mmol/L (21-32) Anion Gap 8 (6-14) Blood Urea Nitrogen 9 mg/dL (7-20) Creatinine 0.8 mg/dL (0.6-1.0) Estimated GFR (Cockcroft-Gault) 92.6 Glucose Level 170 mg/dL (70-99) Calcium Level 8.5 mg/dL (8.5-10.1) Creatine Kinase 223 U/L (26-192) Medications Current Medications Aspirin (Children'S Aspirin) 324 mg 1X ONCE PO Last administered on 12/03/19at 00:45; Start 12/03/19 at 00:30; Stop 12/03/19 at 00:34; Status DC Nitroglycerin (Nitrostat) 0.4 mg PRN Q5MIN PRN SL CP RATING > 1/10 Last administered on 12/03/19at 00:45; Start 12/03/19 at 00:30; Stop 12/04/19 at 00:29; Status DC Acetaminophen/ Hydrocodone Bitart (Lortab 5/325) 1 tab 1X ONCE PO Last administered on 12/03/19at 09:24; Start 12/03/19 at 09:15; Stop 12/03/19 at 09:18; Status DC Potassium Chloride (Klor-Con) 20 meq 1X ONCE PO Last administered on 12/03/19at 11:22; Start 12/03/19 at 10:15; Stop 12/03/19 at 10:16; Status DC Lisinopril (Prinivil) 5 mg DAILY PO Last administered on 12/04/19at 09:00; Start 12/03/19 at 12:00 Sodium Chloride 1,000 ml @ 100 mls/hr Q10H IV Last administered on 12/03/19at 11:43; Start 12/03/19 at 12:00 Potassium Chloride (Klor-Con) 40 meq 1X ONCE PO Last administered on 12/03/19at 16:59; Start 12/03/19 at 14:30; Stop 12/03/19 at 14:31; Status DC Potassium Chloride (Klor-Con) 20 meq DAILYWBKFT PO Last administered on 12/04/19at 08:00; Start 12/04/19 at 08:00 Acetaminophen/ Hydrocodone Bitart (Lortab 5/325) 1 tab PRN Q4HRS PRN PO PAIN Last administered on 12/03/19at 16:58; Start 12/03/19 at 17:00 Active Scripts Active Macrobid 100 Mg Capsule (Nitrofurantoin Monohyd/M-Cryst) 100 Mg Capsule 1 Cap PO BID Naprosyn (Naproxen) 500 Mg Tablet 1 Tab PO BID [place] 5-325 Tablet (Acetaminophen/Hydrocodone Bitart) 1 Each Tablet 1 Tab PO PRN Q4-6HRS PRN Vitals/I & O Vital Sign - Last 24 Hours 12/03/19 12/03/19 12/03/19 12/03/19 11:19 11:42 15:14 17:58 Pulse 59 69 Resp 18 B/P (MAP) 153/95 135/77 (96) Pulse Ox 99 O2 Delivery Room Air Room Air 12/03/19 12/03/19 12/03/19 12/04/19 19:00 20:00 23:00 03:00 Temp 98.0 98.4 97.8 98.0 98.4 97.8 Pulse 61 64 61 Resp 16 14 14 B/P (MAP) 118/84 (95) 119/76 (90) 135/82 (99) Pulse Ox 97 99 97 O2 Delivery Room Air Room Air Room Air Room Air 12/04/19 12/04/19 12/04/19 12/04/19 07:00 08:00 09:00 10:45 Temp 98.0 98.0 Pulse 61 78 66 Resp 14 14 B/P (MAP) 135/82 (99) 145/78 145/78 (100) Pulse Ox 97 O2 Delivery Room Air Room Air Room Air Intake and Output 12/03/19 12/03/19 12/04/19 15:00 23:00 07:00 Intake Total 500 ml 200 ml Balance 500 ml 200 ml TRUE BRONSON MD Dec 04, 2019 10:54
--- NOTE | 2019-12-04 11:47 | PDOC3 ---
Discharge Summary Date of Admission: Dec 03, 2019 Date of Discharge: Dec 04, 2019 Follow-Up: 3-5 days Admitting Diagnosis comment: discharge dx Assessment/Plan impression 1. CHEST pain with atypical features 2. morbid obesity 3. possible GERD 4. RUQ discomfort 5. hypertension plan admit cvc cardiology consult gb sono trend troponin i neg x 3 dvt prophylaxis norvasc 5 mg po daily protonix 40mg po daily d/c planning 27 min Vitals Vitals Vital Signs Date Time Temp Pulse Resp B/P (MAP) Pulse Ox O2 Delivery O2 Flow Rate FiO2 12/04/19 10:45 66 14 145/78 (100) Room Air 12/04/19 07:00 98.0 97 98.0 Physical Exam General: Alert, Oriented X3, Cooperative, No acute distress Heart: Regular rate, Normal S1, Normal S2 Abdomen: Normal bowel sounds, Soft, No tenderness Extremities: No cyanosis, No edema, Normal pulses Skin: No significant lesion Labs LABS Right upper quadrant ultrasound dated 12/03/2019. No comparison available. Clinical data indication: Pain. FINDINGS: Gallbladder normal in size and echogenicity. No gallbladder wall thickening or pericholecystic fluid. Liver is homogeneous in echogenicity. No focal hepatic mass. Intrahepatic and extra hepatic biliary tree normal in caliber. The common bile duct measures 4 mm. Right kidney measures 11.5 cm in length without hydronephrosis. Left kidney was not imaged. Pancreas is not well evaluated due to overlying bowel gas. Limited imaged portions of the aorta and IVC unremarkable. No significant ascites. IMPRESSION: 1. No acute sonographic abnormality. Electronically signed by: Stephane Duron MD (12/04/2019 12:12 AM) [id number] FINAL DIAGNOSIS Problems Medical Problems: (1) Rhabdomyolysis Status: Acute Brief Hospital Course Ms. Jarvis is a 48 old [sex] who presented with [ chest pain, gerd] CONDITION AT DISCHARGE: Improved Discharge Medications Current Medications Aspirin (Children'S Aspirin) 324 mg 1X ONCE PO Last administered on 12/03/19at 00:45; Start 12/03/19 at 00:30; Stop 12/03/19 at 00:34; Status DC Nitroglycerin (Nitrostat) 0.4 mg PRN Q5MIN PRN SL CP RATING > 1/10 Last administered on 12/03/19at 00:45; Start 12/03/19 at 00:30; Stop 12/04/19 at 00:29; Status DC Acetaminophen/ Hydrocodone Bitart (Lortab 5/325) 1 tab 1X ONCE PO Last a dministered on 12/03/19at 09:24; Start 12/03/19 at 09:15; Stop 12/03/19 at 09:18; Status DC Potassium Chloride (Klor-Con) 20 meq 1X ONCE PO Last administered on 12/03/19at 11:22; Start 12/03/19 at 10:15; Stop 12/03/19 at 10:16; Status DC Lisinopril (Prinivil) 5 mg DAILY PO Last administered on 12/04/19at 09:00; Start 12/03/19 at 12:00 Sodium Chloride 1,000 ml @ 100 mls/hr Q10H IV Last administered on 12/03/19at 11:43; Start 12/03/19 at 12:00 Potassium Chloride (Klor-Con) 40 meq 1X ONCE PO Last administered on 12/03/19at 16:59; Start 12/03/19 at 14:30; Stop 12/03/19 at 14:31; Status DC Potassium Chloride (Klor-Con) 20 meq DAILYWBKFT PO Last administered on 12/04/19at 08:00; Start 12/04/19 at 08:00 Acetaminophen/ Hydrocodone Bitart (Lortab 5/325) 1 tab PRN Q4HRS PRN PO PAIN Last administered on 12/03/19at 16:58; Start 12/03/19 at 17:00 Active Scripts Active Macrobid 100 Mg Capsule (Nitrofurantoin Monohyd/M-Cryst) 100 Mg Capsule 1 Cap PO BID Naprosyn (Naproxen) 500 Mg Tablet 1 Tab PO BID [place] 5-325 Tablet (Acetaminophen/Hydrocodone Bitart) 1 Each Tablet 1 Tab PO PRN Q4-6HRS PRN Vital Signs Vital Signs Date Time Temp Pulse Resp B/P (MAP) Pulse Ox O2 Delivery O2 Flow Rate FiO2 12/04/19 10:45 66 14 145/78 (100) Room Air 12/04/19 07:00 98.0 97 98.0 Labs Laboratory Tests Test 2/24/20 00:23 12/03/19 09:55 12/04/19 09:15 White Blood Count 9.5 x10^3/uL (4.0-11.0) Red Blood Count 4.07 x10^6/uL (3.50-5.40) Hemoglobin 11.2 g/dL (12.0-15.5) Hematocrit 33.0 % (36.0-47.0) Mean Corpuscular Volume 81 fL (79-100) Mean Corpuscular Hemoglobin 28 pg (25-35) Mean Corpuscular Hemoglobin Concent 34 g/dL (31-37) Red Cell Distribution Width 17.7 % (11.5-14.5) Platelet Count 441 x10^3/uL (140-400) Neutrophils (%) (Auto) 65 % (31-73) Lymphocytes (%) (Auto) 24 % (24-48) Monocytes (%) (Auto) 9 % (0-9) Eosinophils (%) (Auto) 2 % (0-3) Basophils (%) (Auto) 1 % (0-3) Neutrophils # (Auto) 6.2 x10^3/uL (1.8-7.7) Lymphocytes # (Auto) 2.3 x10^3/uL (1.0-4.8) Monocytes # (Auto) 0.8 x10^3/uL (0.0-1.1) Eosinophils # (Auto) 0.2 x10^3/uL (0.0-0.7) Basophils # (Auto) 0.1 x10^3/uL (0.0-0.2) Prothrombin Time 12.4 SEC (11.7-14.0) Prothromb Time International Ratio 1.0 (0.8-1.1) Sodium Level 142 mmol/L (136-145) 143 mmol/L (136-145) Potassium Level 3.2 mmol/L (3.5-5.1) 3.8 mmol/L (3.5-5.1) Chloride Level 107 mmol/L (98-107) 107 mmol/L (98-107) Carbon Dioxide Level 26 mmol/L (21-32) 28 mmol/L (21-32) Anion Gap 9 (6-14) 8 (6-14) Blood Urea Nitrogen 13 mg/dL (7-20) 9 mg/dL (7-20) Creatinine 1.0 mg/dL (0.6-1.0) 0.8 mg/dL (0.6-1.0) Estimated GFR (Cockcroft-Gault) 71.6 92.6 BUN/Creatinine Ratio 13 (6-20) Glucose Level 112 mg/dL (70-99) 170 mg/dL (70-99) Calcium Level 8.8 mg/dL (8.5-10.1) 8.5 mg/dL (8.5-10.1) Magnesium Level 1.8 mg/dL (1.8-2.4) Total Bilirubin 0.2 mg/dL (0.2-1.0) Aspartate Amino Transf (AST/SGOT) 33 U/L (15-37) Alanine Aminotransferase (ALT/SGPT) 33 U/L (14-59) Alkaline Phosphatase 73 U/L (46-116) Creatine Kinase 903 U/L (26-192) 223 U/L (26-192) Troponin I Quantitative < 0.017 ng/mL (0.000-0.055) < 0.017 ng/mL (0.000-0.055) NP-Ymd-R-Type Natriuretic Peptide 53 pg/mL (0-124) Total Protein 7.0 g/dL (6.4-8.2) Albumin 3.3 g/dL (3.4-5.0) Albumin/Globulin Ratio 0.9 (1.0-1.7) Lipase 155 U/L (73-393) Triglycerides Level 40 mg/dL (0-150) Cholesterol Level 132 mg/dL (0-200) LDL Cholesterol, Calculated 73 mg/dL (0-100) VLDL Cholesterol, Calculated 8 mg/dL (0-40) Non-HDL Cholesterol Calculated 81 mg/dL (0-129) HDL Cholesterol 51 mg/dL (40-60) Cholesterol/HDL Ratio 2.6 Thyroid Stimulating Hormone (TSH) 2.329 uIU/mL (0.358-3.74) Laboratory Tests Test 12/04/19 09:15 Sodium Level 143 mmol/L (136-145) Potassium Level 3.8 mmol/L (3.5-5.1) Chloride Level 107 mmol/L (98-107) Carbon Dioxide Level 28 mmol/L (21-32) Anion Gap 8 (6-14) Blood Urea Nitrogen 9 mg/dL (7-20) Creatinine 0.8 mg/dL (0.6-1.0) Estimated GFR (Cockcroft-Gault) 92.6 Glucose Level 170 mg/dL (70-99) Calcium Level 8.5 mg/dL (8.5-10.1) Creatine Kinase 223 U/L (26-192) Allergies Allergies Coded Allergies Type Severity Reaction Last Updated Verified No Known Drug Allergies 05/24/16 No Disposition/Orders: D/C to Home TRUE BRONSON MD Dec 04, 2019 11:46
[2019-12-04] MEDS ORDERED: PANT40TA77 PO (11:49)
[2019-12-04] MEDS ORDERED: POTA20TA4 PO (11:49)
[2019-12-04] MEDS ORDERED: LISI-338 PO (11:49)
--- NOTE | 2019-12-04 11:50 | DISCH ---
DISCHARGE INSTRUCTIONS Condition on Discharge Condition on Discharge: Stable Activity After Discharge Activity Instructions for Disc: Activity as tolerated Exercise Instruction after Dis: Walk 10 min, 3 x per day Driving Instructions after Dis: Do not drive today Diet after Discharge Diet after Discharge: Cardiac Checks after Discharge Checks after discharge: Check blood press - daily Contacting the DRGordon after DC Call your doctor for: If your condition worsens Follow-Up Follow up with: see pcp in 1-2 weeks Treatment/Equipment after DC Adaptive Equipment Issued: None TRUE BRONSON MD Dec 04, 2019 11:50
[2019-12-04] MEDS ORDERED: PANTOPRAZOLE 40 MG TABLET.DR. PO SCH (12:00)
== END 2019-12-04 12:15 | disposition home or self-care (01) | DRG 313 ==
LOC: ER 00:05 → EEVIPCON 07:16 → 1 WEST ICU 07:16
PROVIDERS: ADMIT Internal Medicine; ATTEND Internal Medicine
DX: R07.89 Other chest pain (principal); M62.82 Rhabdomyolysis; E66.01 Morbid (severe) obesity due to excess calories; E87.6 Hypokalemia; F17.210 Nicotine dependence, cigarettes, uncomplicated; I10 Essential (primary) hypertension; K21.9 Gastro-esophageal reflux disease without esophagitis; G43.909 Migraine, unspecified, not intractable, without status migrainosus; Z68.31 Body mass index [BMI] 31.0-31.9, adult; Z82.49 Family history of ischemic heart disease and other diseases of the circulatory system; Z83.3 Family history of diabetes mellitus
CPT/HCPCS: 36415; 71045; 76705; 80048; 80053; 80061; 82550; 83690; 83735; 83880; 84443; 84484; 85025; 85610; 93005; 93306; G0378

== ENCOUNTER → 2020-03-25 | Outpatient (CLI) | payer BC ==
[~2020-03-25] MED LIST changes: +LISI-338 PO; +PANT40TA77 PO; +POTA20TA4 PO
--- NOTE | 2020-03-25 09:40 | RAD ---
DATE: 03/25/2020 8:11 AM EXAM: MAMMO PAT SOTO, BREAST LEFT HISTORY: 49-year-old woman with left breast palpable tenderness, due for bilateral screening. COMPARISON: 03/10/2018 bilateral mammogram and targeted breast ultrasound TECHNIQUE: Bilateral CC and MLO views of the breasts were performed. Bilateral breast tomosynthesis was performed in CC and MLO projections. Computer-aided detection was utilized. Thereafter, targeted ultrasound of the left breast in the patient's area of palpable concern was performed. FINDINGS: Breast Density: HETERO The breast parenchyma Is heterogeneously dense, which could reduce sensitivity of mammography. Breast parenchyma level C Nodular parenchymal pattern consistent with benign cystic change is present. There has been an interval increase in size of a circumscribed superficial mass in the medial anterior left breast measuring 4.2 cm. Targeted ultrasound confirms this is a sonographically benign cyst. A benign biopsy marker is also present in the anterior superior subareolar left breast. IMPRESSION: Benign cysts in both breasts. No evidence of malignancy. The cysts that are symptomatic are amenable to aspiration if clinically warranted. Otherwise, return to routine screening next doing one year is recommended. If there are any clinically suspicious findings they should be considered for biopsy even in the absence of any imaging correlate or suspicious imaging findings. BI-RADS CATEGORY: 2 BENIGN FINDING(S) RECOMMENDED FOLLOW-UP: 12M 12 MONTH FOLLOW-UP Annual screening mammography is recommended, unless clinically indicated sooner based on symptoms or change in physical exam. PQRS compliance statement: Patient information was entered into a reminder system with a target due date 03/26/2021 for the next mammogram. Mammography is a sensitive method for finding small breast cancers, but it does not detect them all and is not a substitute for careful clinical examination. A negative mammogram does not negate a clinically suspicious finding and should not result in delay in biopsying a clinically suspicious abnormality. "Our facility is accredited by the [employer] Mammography Program."
--- NOTE | 2020-03-25 17:26 | RAD ---
Ultrasound-guided left breast cyst aspiration. INDICATION: 49-year-old woman with a tender left breast cyst, requesting aspiration for symptomatic relief. COMPARISON: Earlier same day left diagnostic breast ultrasound. TECHNIQUE AND FINDINGS: After discussion of risks benefits and alternatives, patient gave verbal and written informed consent for the procedure. An appropriate procedural pause was observed. Using standard sterile technique, ultrasound guidance and local anesthesia with 1 mL of 1 percent lidocaine, an 18-gauge needle was introduced into the tender cyst at the left 11:00 position 7 cm from the nipple and the contents were aspirated in their entirety. 15 mL of brown fluid was aspirated and discarded. A small amount of room air was insufflated into the cyst cavity to limit risk of cyst recurrence. Patient tolerated the procedure without incident. Puncture site was dressed and postprocedure instructions were reviewed after which patient was discharged in stable condition to follow with her referring physician. There were no apparent complications. IMPRESSION: Successful, uncomplicated ultrasound-guided left breast cyst aspiration as described. Electronically signed by: Guerrero Matute MD (03/25/2020 5:23 PM) [id number]
== END ==
LOC: MAMMO 07:45
PROVIDERS: ATTEND Nurse Practitioner Family
DX: N63.20 Unspecified lump in the left breast, unspecified quadrant (principal); N60.02 Solitary cyst of left breast
CPT/HCPCS: 19000; 76641; 77066; G0279; 76942; 77062

== ENCOUNTER → 2020-05-07 | Outpatient (CLI) | payer BC ==
--- NOTE | 2020-05-07 08:31 | RAD ---
STUDY: US PELVIS W/TV HISTORY: Menorrhagia. COMPARISON: 11/24/2015 TECHNIQUE: Pelvic ultrasound was performed with transabdominal and transvaginal probes. FINDINGS: The uterus is measured at 10.6 x 7.0 x 6.4 cm. The endometrium is measured at 1.0 cm in thickness transabdominal and 0.8 cm transvaginal. Transvaginal technique better delineates multiple uterine fibroids. A fibroid within the anterior body segment measures 3.7 x 2.9 x 3.4 cm. A fibroid within the posterior body segment measures 3.8 x 2.4 x 2.5 cm. The fibroid anteriorly is more vascular than the one posterior. Both these fibroids extend into close proximity with the endometrium but are predominantly intramural. The right ovary is measured at 1.5 x 3.8 x 1.8 cm. Septated right ovarian cyst measures 2.3 x 1.1 x 1.3 cm. No Doppler flow to the septation. Normal Doppler flow to the right ovary. The left ovary measures 2.1 x 1.0 x 1.2 cm. No complex cyst or mass. Normal Doppler flow. No free fluid seen within the deep pelvis. IMPRESSION: 1. Fibroid uterus with two dominant intramural fibroids within the body segment one measuring up to 3.7 cm and the other 3.8 cm. 2. The endometrium is within normal limits for thickness given patient age at 0.8 cm. 3. Thinly septated right ovarian cyst measuring up to 2.3 cm in maximum dimension. Based on patient age, the overall size of the cyst and the thin nature of the septation, a benign cyst is favored. No dedicated follow-up is needed unless otherwise clinically indicated. Doppler flow is maintained to both ovaries. Electronically signed by: JAVI MAHAN MD (05/07/2020 8:28 AM) [id number]
== END | disposition home or self-care (01) ==
LOC: US 07:39
PROVIDERS: ATTEND Obstetrics & Gynecology
DX: N83.291 Other ovarian cyst, right side (principal); N92.0 Excessive and frequent menstruation with regular cycle; N94.6 Dysmenorrhea, unspecified; D25.9 Leiomyoma of uterus, unspecified
CPT/HCPCS: 76830; 76856

== ENCOUNTER 2020-08-19 15:00 | Emergency (ER) | payer BC ==
[~2020-08-19] VITALS: Ht 180.3 cm; Wt 104.0 kg
[2020-08-19] MEDS ORDERED: DEXAMETHASONE 4 MG TABLET PO ONE (16:00)
[2020-08-19] MEDS ORDERED: KETOROLAC 30 MG/ML VIAL. IM ONE (16:00)
--- NOTE | 2020-08-19 16:37 | PHYS DOC ---
Past Medical History Past Medical History: Anxiety, Hypertension, Migraines Past Surgical History: Other Additional Past Surgical Histo: breast biposy, endometrial ablation Smoking Status: Never Smoker Alcohol Use: Occasionally Drug Use: None General Adult EDM: Chief Complaint: SHOUDLER HPI: HPI: Patient is a 49 year old female who presents with left shoulder pain that started a couple of days ago and is rated 10/10. Pt states the arm feels heavy and the pain came out of nowhere. Pt does not note doing anything different when the pain came on and denies any trauma. This has never happened before. Pt also notes sharp shooting pains down the arm as well as tingling in her left fingertips. Not moving helps the pain. Pt also took hyrocodone for the pain and that helped. She had it left over from a surgery a few weeks ago. 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 Review of Systems: Review of Systems: Constitutional: Denies fever or chills Eyes: Denies redness or eye pain HENT: Denies nasal congestion or sore throat Respiratory: Denies cough or shortness of breath Cardiovascular: Denies chest pain or palpitations GI: Denies abdominal pain, nausea, or vomiting : Denies dysuria or hematuria Musculoskeletal: Denies back pain, endorses left shoulder pain Integument: Denies rash or skin lesions Neurologic: Denies headache, focal weakness or sensory changes Complete systems were reviewed and found to be within normal limits, except as documented in this note. Current Medications: Current Medications Medications (Trade) Dose Ordered Sig/Celine Start Time Stop Time Status Last Admin Dose Admin Dexamethasone (Decadron) 10 mg 1X ONCE 08/19/20 16:00 08/19/20 16:04 DC 08/19/20 16:11 10 MG Ketorolac Tromethamine (Toradol 30mg Vial) 30 mg 1X ONCE 08/19/20 16:00 08/19/20 16:04 DC 08/19/20 16:11 30 MG Allergies: Allergies: Allergies Coded Allergies Type Severity Reaction Last Updated Verified No Known Drug Allergies 05/24/16 No Physical Exam: PE: Constitutional: Well developed, well nourished, non-toxic appearance HENT: Normocephalic, atraumatic Eyes: PERRL, EOMI, conjunctiva normal, no discharge Neck: Normal range of motion, tenderness with rotation, tender to palpation in left C2-C6 TP Lungs & Thorax: No respiratory distress, equal chest rise and fall Abdomen: Soft, no tenderness Skin: Warm, dry, no erythema, no rash Back: No tenderness, no CVA tenderness Extremities: limited ROM in left shoulder due to pain, tender to palpation lateral shoulder Neurologic: Alert and oriented X 3, normal motor function, normal sensory function, no focal deficits noted Psychologic: Affect normal, judgment normal Current Patient Data: Vital Signs: Vital Signs Date Time Temp Pulse Resp B/P (MAP) Pulse Ox O2 Delivery O2 Flow Rate FiO2 08/19/20 15:34 98.9 82 18 145/78 (100) 100 98.9 EKG: EKG: [] Radiology/Procedures: Radiology/Procedures: PROCEDURE: SHOULDER 2+V LEFT EXAMINATION: SHOULDER 2+V LEFT CLINICAL HISTORY: Left shoulder pain TECHNIQUE: SHOULDER 2+V LEFT Number of Images/Views: 3 COMPARISON: None FINDINGS: Joint spaces and alignment maintained. No acute fracture. Lobular calcification projected along the superolateral aspect of the humeral head/greater tuberosity compatible with calcific tendinosis, likely in the supraspinatus and infraspinatus tendons IMPRESSION: Rotator cuff calcific tendinosis as described. Electronically signed by: Tad Morris DO (08/19/2020 4:40 PM) [id number] Course & Med Decision Making: Course & Med Decision Making Pertinent Labs and Imaging studies reviewed. (See chart for details) 49 year old female presents with left shoulder pain for the last few days. X-ray demonstrated calcific tendinosis, likely in the supraspinatus and infraspinatus tendons. Pt was advised to follow up with ortho and pain management to further evaluate possible causes of shoulder pain with MRI. Pt was placed in a sling and instructed to move arm 5 times a day to reduce risk of frozen shoulder. Pt's pain is adequately controlled. Patient stable for discharge with outpatient follow-up with PCP. Discussed findings and plan with patient, who acknowledges understanding and agreement. Candice Disclaimer: Candice Disclaimer: This electronic medical record was generated, in whole or in part, using a voice recognition dictation system. Splinting Splinting : Location: Left shoulder Pre-Made Type: Sling Pre-Proc Neuro Vasc Exam: normal Post-Proc Neuro Vasc Exam: normal, unchanged from pre-exam Departure Departure Impression: Primary Impression: Shoulder pain, left Qualified Codes: M25.512 - Pain in left shoulder Additional Impression: Radiculopathy of arm Disposition: 01 DC HOME SELF CARE/HOMELESS Condition: STABLE Referrals: LILLY NAVARRETE MD (PCP) DAWIT DOMINGUEZ MD, JOHN N MD Patient Instructions: Cervical Radiculopathy, [id number], Shoulder Pain, [id number] Additional Instructions: Use over the counter Tylenol and/or Ibuprofen for pain or discomfort. ICE area of discomfort for 20 mins then leave off next 20 mins. Repeat several times daily as needed for next few days. Wear shoulder sling for comfort. MAKE sure to do SHOULDER CIRCLES at least 5x daily. Each time try to do 10x in each direction. USE previously prescribed pain medication as directed. Scripts Prednisone (PREDNISONE) 20 Mg Tablet 2 TAB PO DAILY, #8 TAB Start this prescription tomorrow, Tuesday08/20/2020 Prov: JOSE EDUARDO JAQUEZ DO 08/19/20 Orphenadrine Citrate (ORPHENADRINE CITRATE) 100 Mg Tablet.er 100 MG PO BID PRN for MUSCLE PAIN, #14 TAB Prov: JOSE EDUARDO JAQUEZ DO 08/19/20 JOSE EDUARDO JAQUEZ DO Aug 19, 2020 16:37
[2020-08-19] MEDS ORDERED: ORPH100T PO (16:42)
[2020-08-19] MEDS ORDERED: PRED20TA PO (16:42)
--- NOTE | 2020-08-19 16:42 | RAD ---
EXAMINATION: SHOULDER 2+V LEFT CLINICAL HISTORY: Left shoulder pain TECHNIQUE: SHOULDER 2+V LEFT Number of Images/Views: 3 COMPARISON: None FINDINGS: Joint spaces and alignment maintained. No acute fracture. Lobular calcification projected along the superolateral aspect of the humeral head/greater tuberosity compatible with calcific tendinosis, likely in the supraspinatus and infraspinatus tendons IMPRESSION: Rotator cuff calcific tendinosis as described. Electronically signed by: Tad Morris DO (08/19/2020 4:40 PM) [id number]
[2020-08-19 16:52] VITALS: BP 146/85
== END 2020-08-19 17:00 | disposition home or self-care (01) ==
LOC: ER 15:00
DX: M25.512 Pain in left shoulder (principal); M54.10 Radiculopathy, site unspecified; G43.909 Migraine, unspecified, not intractable, without status migrainosus; I10 Essential (primary) hypertension; F41.9 Anxiety disorder, unspecified
CPT/HCPCS: 73030; 96372; 99283; A4565; J1885

== ENCOUNTER 2020-08-30 15:07 | Inpatient (IN) | payer BC ==
[~2020-08-30] VITALS: Ht 180.3 cm; Wt 103.2 kg
[~2020-08-30 15:07] MED LIST changes: +ORPH100T PO; +PRED20TA PO
--- NOTE | 2020-08-30 15:24 | PHYS DOC ---
Past Medical History Past Medical History: Anxiety, Hypertension, Migraines Past Surgical History: Other Additional Past Surgical Histo: breast biposy, endometrial ablation Smoking Status: Never Smoker Alcohol Use: Occasionally Drug Use: None General Adult EDM: Chief Complaint: SYNCOPE HPI: HPI: History gained from patient EMS. Patient is a 49-year-old female with past medical history significant for hypertension, anxiety who presents with a chief complaint of syncope. Just prior to arrival patient states she was taking a shower. States she did become dizzy in the shower. She does report vertiginous symptoms. She states she got out of the shower and began walking down the hallway with her daughter. She states she then suddenly passed out and fell to the ground. She does not remember falling to the ground. She does note worsening left shoulder pain since falling. She states she was evaluated 1 week ago for left shoulder pain. She denies any chest pain or shortness of breath. Denies any feelings of irregular rapid heartbeat. Denies any history of syncope. Not take any blood thinners. Does note a mild headache after she presumed striking her head. Denies any tobacco, alcohol, or drug usage. Denies history of cardiac disease. Denies any history of invasive cardiac testing. Denies slurred speech or confusion. No other complaints. Review of Systems: Review of Systems: Constitutional: Denies fever or chills. [] Eyes: Denies change in visual acuity. [] HENT: Denies nasal congestion or sore throat. [] Respiratory: Denies cough or shortness of breath. [] Cardiovascular: Positive for syncope GI: Denies abdominal pain, nausea, vomiting, bloody stools or diarrhea. [] : Denies dysuria. [] Musculoskeletal: Denies back pain or joint pain. [] Integument: Denies rash. [] Neurologic: Denies headache, focal weakness or sensory changes. [] Endocrine: Denies polyuria or polydipsia. [] Lymphatic: Denies swollen glands. [] Psychiatric: Denies depression or anxiety. [] Heart Score: Risk Factors: Risk Factors: DM, Current or recent (<one month) smoker, HTN, HLP, family h istory of CAD, obesity. Risk Scores: Score 0 - 3: 2.5% MACE over next 6 weeks - Discharge Home Score 4 - 6: 20.3% MACE over next 6 weeks - Admit for Clinical Observation Score 7 - 10: 72.7% MACE over next 6 weeks - Early Invasive Strategies Allergies: Allergies: Allergies Coded Allergies Type Severity Reaction Last Updated Verified No Known Drug Allergies 05/24/16 No Physical Exam: PE: Constitutional: Well developed, well nourished, no acute distress, non-toxic appearance. [] HENT: Normocephalic, atraumatic, bilateral external ears normal, oropharynx moist, no oral exudates, nose normal. [] Eyes: PERRLA, EOMI, conjunctiva normal, no discharge. [] Neck: Normal range of motion, no tenderness, supple, no stridor. [] Cardiovascular:Heart rate regular rhythm, no murmur [] Lungs & Thorax: Bilateral breath sounds clear to auscultation [] Abdomen: soft, no tenderness, no masses, no pulsatile masses. [] Skin: Warm, dry, no erythema, no rash. [] Back: No tenderness, no CVA tenderness. [] Extremities: Tenderness palpation over the lateral aspect of the left shoulder. No obvious deformity noted. +2-4 radial pulse on the left. Compartments are soft on the left. Cardinal hand movements intact. Neurologic: Alert with intact cognitive function. No aphasia, dysarthria, or neglect. GCS 15. Pupils 3 mm briskly reactive b/l. No APD present. Cranial nerves 2-12 grossly intact; no facial asymmetry present, tongue midline, shoulder shrugging strength intact. Strength 5/5 and symmetric throughout. Light touch sensation intact throughout. Cerebellar testing appropriate without evidence of dysdiadochokinesia. DTR's 2+ in all 4 extremities. Negative pronator drift bilaterally. Gait deferred Psychologic: Affect normal, judgement normal, mood normal. [] Current Patient Data: Labs: Laboratory Tests Test 08/30/20 16:30 White Blood Count 16.2 x10^3/uL Red Blood Count 4.59 x10^6/uL Hemoglobin 13.2 g/dL Hematocrit 39.6 % Mean Corpuscular Volume 86 fL Mean Corpuscular Hemoglobin 29 pg Mean Corpuscular Hemoglobin Concent 33 g/dL Red Cell Distribution Width 13.7 % Platelet Count 451 x10^3/uL Neutrophils (%) (Auto) 88 % Lymphocytes (%) (Auto) 6 % Monocytes (%) (Auto) 5 % Eosinophils (%) (Auto) 1 % Basophils (%) (Auto) 1 % Neutrophils # (Auto) 14.2 x10^3/uL Lymphocytes # (Auto) 0.9 x10^3/uL Monocytes # (Auto) 0.8 x10^3/uL Eosinophils # (Auto) 0.1 x10^3/uL Basophils # (Auto) 0.1 x10^3/uL Segmented Neutrophils % 78 % Band Neutrophils % 6 % Lymphocytes % 3 % Monocytes % 12 % Eosinophils % 1 % Platelet Estimate Increased Sodium Level 139 mmol/L Potassium Level 3.6 mmol/L Chloride Level 102 mmol/L Carbon Dioxide Level 27 mmol/L Anion Gap 10 Blood Urea Nitrogen 8 mg/dL Creatinine 0.9 mg/dL Estimated GFR (Cockcroft-Gault) 80.5 Glucose Level 116 mg/dL Calcium Level 9.2 mg/dL Magnesium Level 2.1 mg/dL Troponin I Quantitative < 0.017 ng/mL Current Medications Medications (Trade) Dose Ordered Sig/Celine Route PRN Reason Start Time Stop Time Status Last Admin Dose Admin Acetaminophen/ Hydrocodone Bitart (Lortab 5/325) 1 tab 1X ONCE PO 08/30/20 16:30 08/30/20 16:31 DC 08/30/20 16:40 Iohexol (Omnipaque 350 Mg/ml) 100 ml 1X ONCE IV 08/30/20 18:00 08/30/20 18:01 DC Info (CONTRAST GIVEN -- Rx MONITORING) 1 each PRN DAILY PRN MC SEE COMMENTS 08/30/20 18:00 09/01/20 17:59 Morphine Sulfate (Morphine Sulfate) 4 mg 1X ONCE IVP 08/30/20 18:15 08/30/20 18:16 DC 08/30/20 18:08 Bacitracin (Bacitracin Zinc Oint Pkt) 1 pkt STK-MED ONCE TP 08/30/20 18:06 08/30/20 18:07 DC Vital Signs: Vital Signs Date Time Temp Pulse Resp B/P (MAP) Pulse Ox O2 Delivery O2 Flow Rate FiO2 08/30/20 18:08 18 99 Room Air 08/30/20 16:40 15 99 Room Air 08/30/20 16:39 88 16 145/80 (101) 100 Room Air 08/30/20 16:09 93 16 174/89 (117) 100 Room Air 08/30/20 15:07 98.8 104 16 164/87 (112) 98 Room Air 98.8 EKG: EKG: EKG consistent with normal sinus rhythm. Ventricular rate of 100 bpm. Left axis noted. Nonspecific T wave abnormalities noted in the inferior and anterior precordial leads. No acute ischemia appreciated. QTc 488.. Intervals normal. [] Radiology/Procedures: Radiology/Procedures: [address] [address] IMAGING REPORT Signed PATIENT: MARYBEL WATERMAN ACCOUNT: [id number] : 1970 LOCATION: ER AGE: 49 SEX: F EXAM STATUS: PRE ER ORD. PHYSICIAN: MAC MENCHACA DO REASON: syncope/called about preg test @ 1630 PROCEDURE: CHEST AP ONLY INDICATION: Reason: syncope/called about preg test @ 1630 / Spl. Instructions: / History: COMPARISON: November 2019 FINDINGS: Single view of chest obtained. No focal airspace consolidation. Cardiomediastinal contour unremarkable. No acute osseous abnormality. IMPRESSION: * No focal airspace consolidation or edema. Electronically signed by: Zurdo Waterman MD (08/30/2020 5:17 PM) [id number] DICTATED and SIGNED BY: ZURDO WATERMAN MD DATE: 08/30/20 [id number] [address] IMAGING REPORT Signed PATIENT: MARYBEL WATERMAN ACCOUNT: [id number] : 1970 LOCATION: ER AGE: 49 SEX: F EXAM STATUS: PRE ER ORD. PHYSICIAN: MAC MENCHACA DO REASON: shoulder pain s/p syncope PROCEDURE: SHOULDER 2+V LEFT INDICATION: Reason: shoulder pain s/p syncope / Spl. Instructions: / History: COMPARISON: August 19, 2020 IMPRESSION: Left shoulder: 3 views obtained. Repeat demonstration of calcification superior lateral to the humeral head which could be from rotator cuff tendinosis. Repeat demonstration of some lucency within the proximal humerus which can be from cyst formation. No evidence of acute fracture or dislocation. Electronically signed by: Zurdo Waterman MD (08/30/2020 5:19 PM) [id number] DICTATED and SIGNED BY: ZURDO WATERMAN MD DATE: 08/30/20 [id number] [] Course & Med Decision Making: Course & Med Decision Making Pertinent Labs and Imaging studies reviewed. (See chart for details) [] Patient is a 49-year-old female who arrives via EMS for syncope with collapse. Initial vital signs unremarkable. EKG does show nonspecific T wave abnormalities. QTc measured at 488. Basic labs were obtained. Overall unremarkable. Left shoulder x-ray was obtained given she notes increased discomfort to the area. This was negative for acute traumatic abnormality. The patient's abnormal EKG coupled with syncope CT PE study was obtained. This currently pending. I do feel the patient would benefit from hospitalization given she did have a syncopal event with collapse and has never had this before. Furthermore she does have an abnormal EKG that has never been evaluated. Patient is agreeable to hospitalization pending CT PE study. Dragon Disclaimer: Draggabby Disclaimer: This electronic medical record was generated, in whole or in part, using a voice recognition dictation system. Departure Departure Impression: Primary Impression: Syncope and collapse Additional Impression: Abnormal EKG Disposition: 09 ADMITTED INPT THIS HOSP Condition: STABLE Referrals: LILLY NAVARRETE MD (PCP) MAC MENCHACA DO Aug 30, 2020 15:24
[2020-08-30] MEDS ORDERED: HYDROcodone/APAP 5/325MG 1 TAB TABLET PO ONE (16:30)
[2020-08-30 16:53] LABS: BASO # 0.1 x10^3/uL (0.0-0.2); BASO % 1 % (0-3); EOS # 0.1 x10^3/uL (0.0-0.7); EOS % 1 % (0-3); HEMATOCRIT 39.6 % (36.0-47.0); HEMOGLOBIN 13.2 g/dL (12.0-15.5); LYMPH # 0.9 x10^3/uL (1.0-4.8); LYMPH % 6 % (24-48); MEAN CORPUSCULAR HEMOGLOBIN 29 pg (25-35); MEAN CORPUSCULAR HGB CONC 33 g/dL (31-37); MEAN CORPUSCULAR VOLUME 86 fL (79-100); MONO # 0.8 x10^3/uL (0.0-1.1); MONO % 5 % (0-9); NEUT # 14.2 x10^3/uL (1.8-7.7); NEUT % 88 % (31-73); PLATELET COUNT 451 x10^3/uL (140-400); RED BLOOD COUNT 4.59 x10^6/uL (3.50-5.40); RED CELL DISTRIBUTION WIDTH 13.7 % (11.5-14.5); WHITE BLOOD COUNT 16.2 x10^3/uL (4.0-11.0)
[2020-08-30 17:04] LABS: CALCIUM 9.2 mg/dL (8.5-10.1); CREATININE 0.9 mg/dL (0.6-1.0); GFR 80.5; POTASSIUM 3.6 mmol/L (3.5-5.1)
[2020-08-30 17:05] LABS: MAGNESIUM 2.1 mg/dL (1.8-2.4)
[2020-08-30 17:18] LABS: % BANDS 6 % (0-9); % EOS 1 % (0-5); % LYMPHS 3 % (24-48); % MONOS 12 % (0-10); % SEGS 78 % (35-66); PLT ESTIMATE INCREASED (ADEQUATE)
--- NOTE | 2020-08-30 17:20 | RAD ---
INDICATION: Reason: syncope/called about preg test @ 1630 / Spl. Instructions: / History: COMPARISON: November 2019 FINDINGS: Single view of chest obtained. No focal airspace consolidation. Cardiomediastinal contour unremarkable. No acute osseous abnormality. IMPRESSION: * No focal airspace consolidation or edema. Electronically signed by: Matty Jarvis MD (08/30/2020 5:17 PM) [id number]
--- NOTE | 2020-08-30 17:22 | RAD ---
INDICATION: Reason: shoulder pain s/p syncope / Spl. Instructions: / History: COMPARISON: August 19, 2020 IMPRESSION: Left shoulder: 3 views obtained. Repeat demonstration of calcification superior lateral to the humeral head which could be from rotator cuff tendinosis. Repeat demonstration of some lucency within the proximal humerus which can be from cyst formation. No evidence of acute fracture or dislocation. Electronically signed by: Matty Jarvis MD (08/30/2020 5:19 PM) [id number]
[2020-08-30] MEDS ORDERED: IOHEXOL 350 MG/ML 100 ML VIAL. IV ONE (18:00)
[2020-08-30] MEDS ORDERED: CONTRAST GIVEN. MC PRN (18:00)
[2020-08-30] MEDS ORDERED: BACITRACIN TOPICAL OINT PACKET. TP ONE (18:06)
[2020-08-30] MEDS ORDERED: MORPHINE SULFATE 4 MG/ML VIAL. IVP ONE (18:15)
--- NOTE | 2020-08-30 18:48 | RAD ---
INDICATION: Reason: syncope / Spl. Instructions: / History: COMPARISON: None. TECHNIQUE: Axial CT images obtained through the head and cervical spine without intravenous contrast. Coronal and sagittal reformats processed of cervical spine. One or more of the following individualized dose reduction techniques were utilized for this examination: 1. Automated exposure control; 2. Adjustment of the mA and/or kV according to patient size; 3. Use of iterative reconstruction technique. FINDINGS: Head: Just deep to the calvarium the left cerebral hemisphere there is a region of high density measuring up to approximately 4 mm in thickness. There is some patchy low density within the white matter including left centrum semiovale region. Ventricles and sulci are within normal limits. No acute osseous abnormality. Orbits and paranasal sinuses unremarkable. Cervical: Degenerative changes of the cervical spine with osteophyte formation at the vertebral body endplates as well as uncovertebral and facet hypertrophy. Multilevel central canal and neural foraminal stenosis. No definite acute fracture or dislocation. IMPRESSION: * Degenerative changes of the cervical spine without acute fracture or dislocation. * Just deep to the calvarium on the left there is a region of high density. Would suspect that this is artifactual in nature rather than a small amount of subdural blood. * There are some scattered low-density within the white matter. Nonspecific but can be from chronic small vessel ischemic disease or sequela of migraine. Electronically signed by: Matty Jarvis MD (08/30/2020 6:45 PM) [id number]
--- NOTE | 2020-08-30 19:06 | RAD ---
EXAM: CT ANGIOGRAPHY OF THE CHEST WITH AND WITHOUT CONTRAST. HISTORY: Syncope, shortness of breath. TECHNIQUE: Computed tomographic angiography of the chest was performed before and after the intravenous administration of iodinated contrast. 3-D maximum intensity projections were also performed. One or more of the following individualized dose reduction techniques were utilized for this examination: 1. Automated exposure control. 2. Adjustment of the mA and/or kV according to patient size. 3. Use of iterative reconstruction technique. COMPARISON: None. FINDINGS: Images of the upper abdomen reveal no acute abnormality. Bone windows reveal no suspicious lesions. No pulmonary emboli are identified. There is no aortic dissection or aneurysm. There are no pathologically enlarged mediastinal or axillary lymph nodes. There is no pleural or pericardial effusion. The heart is not enlarged. Multiple cysts in the left breast measure up to 4.0 cm. A postbiopsy clip is suspected inferiorly. Large cysts on the right measure up to 3.6 cm. Lung windows reveal mild bibasilar atelectasis. IMPRESSION: 1. No pulmonary embolism. No acute infiltrates. 2. Multiple large cysts within both breasts measure up to 4 cm on the left. Correlate with prior mammographic findings. Electronically signed by: Violet Lino MD (08/30/2020 7:03 PM) [facility]
--- NOTE | 2020-08-30 19:26 | HP ---
ADMIT DATE: 08/30/2020 CHIEF COMPLAINT: Syncope. HISTORY OF PRESENT ILLNESS: The patient is a pleasant middle-aged -[place] female who was in the shower and then had a syncopal episode after she got out. She rates her symptoms at 6/10. She has associated dizziness. It has been occurring for just today, has not occurred recently. I discussed the case with the ER physician. We are going to admit the patient. We are going to get a CAT scan to rule out PE. She also has some slight cardiac arrhythmias. We are going to consult Cardiology. PAST MEDICAL HISTORY: Anxiety, hypertension, migraines, breast biopsy, and endometrial ablation. ALLERGIES: None. FAMILY HISTORY: Diabetes. SOCIAL HISTORY: She does not drink, smoke, or take drugs. MEDICATIONS: Reviewed, please refer to the MRAD. REVIEW OF SYSTEMS: GENERAL: No history of weight change, weakness or fevers. SKIN: No bruising, hair changes or rashes. EYES: No blurred, double or loss of vision. NOSE AND THROAT: No history of nosebleeds, hoarseness or sore throat. HEART: No history of palpitations, chest pain or shortness of breath on exertion. LUNGS: Denies cough, hemoptysis, wheezing or shortness of breath. GASTROINTESTINAL: Denies changes in appetite, nausea, vomiting, diarrhea or constipation. GENITOURINARY: No history of frequency, urgency, hesitancy or nocturia. NEUROLOGIC: Denies history of numbness, tingling, tremor or weakness. PSYCHIATRIC: No history of panic, anxiety or depression. ENDOCRINE: No history of heat or cold intolerance, polyuria or polydipsia. EXTREMITIES: She complains of left shoulder pain that has been chronic. PHYSICAL EXAMINATION: VITALS: Within normal limits and are stable. GENERAL: No apparent distress. Alert and oriented. HEENT: Normal cephalic atraumatic, external auditory canals are patent EYES: Extraocular muscles are intact, pupils are equally round and reactive to light and accommodation MUSCULOSKELETAL: Well developed, well nourished, good range of motion ENDOCRINE: No thyromegaly was palpated LYMPHATICS: No cervical chain or axillary nodes were noted HEMATOPOIETIC: No bruising NECK: Supple, no JVD, no thyromegaly was noted. LUNGS: Clear to auscultation in all lung yao without rhonchi or wheezing. HEART: RRR, S1, S2 present. Peripheral pulses intact, no obvious murmurs were noted. ABDOMEN: Soft, nontender. Positive bowel sounds no organomegaly, normal bowel sounds. EXTREMITIES: Without any cyanosis, clubbing, or edema. Pedal pulses intact, Homans sign is negative. NEUROLOGIC: Normal speech, normal tone. A and O x 3, moves all extremities, no obvious focal deficits. PSYCHIATRIC: Normal affect, normal mood. Stable. SKIN: No ulcerations or rashes, good skin turgor, no jaundice. VASCULAR: Good capillary refill, neurovascular bundle appears to be intact. IMAGING: Left shoulder x-ray shows calcifications superolateral to the humeral head, which could be from rotator cuff tendinitis. ASSESSMENT: Syncopal episode, rule out arrhythmia versus pulmonary embolism versus vasovagal. The patient has been admitted. We will do cardiac monitoring. Consult Cardiology. Check CT of the chest to rule out pulmonary embolism. Home meds, DVT prophylaxis, full code, PT/OT. Trend labs, p.r.n. morphine for pain. PLAN: We will consult Orthopedics regarding her abnormal left shoulder x-ray, empiric IV antibiotics for her leukocytosis, check her UA. ALEX MONTANEZ DO DR: TARA/leonard JOB#: [id number] / [id number]
[2020-08-30] MEDS: cefTRIAXone IV Push 1 GM VIAL. IVP SCH ×2 (19:32→22:05)
[2020-08-30 20:19] LABS: BILIRUBIN,URINE NEGATIVE (NEG); CLARITY,URINE CLEAR; COLOR,URINE YELLOW; NITRITE,URINE NEGATIVE (NEG); PH,URINE 8.5 (<5.0-8.0); PROTEIN,URINE 30 mg/dL (NEG-TRACE); UROBILINOGEN,URINE 0.2 mg/dL (0.2 mg/dL)
[2020-08-30 20:26] LABS: BACTERIA,URINE 0 /HPF (0-FEW); WBC,URINE TNTC /HPF (0-4)
[2020-08-30 22:00] VITALS: BP 126/80
[2020-08-30] MEDS: fentaNYL PF VIAL 100 MCG/2 ML VIAL IVP PRN (22:44)
[2020-08-31] MEDS: HYDROcodone/APAP 7.5/325MG 1 TAB TABLET PO PRN ×3 (02:04→21:45)
[2020-08-31 03:00] VITALS: BP 146/100
[2020-08-31] MEDS: fentaNYL PF VIAL 100 MCG/2 ML VIAL IVP PRN (04:14)
[2020-08-31 04:56] LABS: BASO # 0.1 x10^3/uL (0.0-0.2); BASO % 1 % (0-3); EOS # 0.1 x10^3/uL (0.0-0.7); EOS % 1 % (0-3); HEMATOCRIT 36.6 % (36.0-47.0); HEMOGLOBIN 12.2 g/dL (12.0-15.5); LYMPH # 1.9 x10^3/uL (1.0-4.8); LYMPH % 13 % (24-48); MEAN CORPUSCULAR HEMOGLOBIN 29 pg (25-35); MEAN CORPUSCULAR HGB CONC 34 g/dL (31-37); MEAN CORPUSCULAR VOLUME 86 fL (79-100); MONO # 1.2 x10^3/uL (0.0-1.1); MONO % 8 % (0-9); NEUT # 10.9 x10^3/uL (1.8-7.7); NEUT % 77 % (31-73); PLATELET COUNT 426 x10^3/uL (140-400); RED BLOOD COUNT 4.24 x10^6/uL (3.50-5.40); RED CELL DISTRIBUTION WIDTH 13.9 % (11.5-14.5); WHITE BLOOD COUNT 14.1 x10^3/uL (4.0-11.0)
[2020-08-31 05:29] LABS: CALCIUM 8.4 mg/dL (8.5-10.1); CREATININE 0.7 mg/dL (0.6-1.0); GFR 107.6; POTASSIUM 4.3 mmol/L (3.5-5.1)
[2020-08-31 07:00] VITALS: BP 148/95
[2020-08-31] MEDS: LIDOCAINE (700MG/PATCH) PATCH. TD SCH (09:12)
[2020-08-31] MEDS: KETOROLAC 15 MG/ML VIAL. IVP PRN ×2 (09:49→16:28)
[2020-08-31 11:00] VITALS: BP 142/89
--- NOTE | 2020-08-31 11:03 | PDOC2 ---
CONSULT Date of Consult Date of Consult DATE: 08/31/20 TIME: 11:02 Reason for Consult Reason for Consult: Syncope Referring Physician Referring Physician: Dr. Llamas Identification/Chief Complaint Chief Complaint Syncope Source Source: Chart review, Patient History of Present Illness Reason for Visit: 49-year-old female was apparently getting out of her bathtub when she felt dizzy and asked her daughter for help. However, when she was walking down the hallway, she had an episode of larry syncope and fell to the ground face down. She denied any prior episodes of syncope. She complained of left shoulder pain that has been going on for a few weeks and was actually evaluated by PCP 1 week ago and is currently scheduled to see orthopedics team. She complained of atypical chest pain that she described as sharp in nature that started after her fall, most probably musculoskeletal. She denied any orthopnea/PND, palpitations. Past Medical History Cardiovascular: HTN Heme/Onc: Anemia NOS Past Surgical History Past Surgical History: No pertinent history Family History Family History: Diabetes, Hypertension Social History ALCOHOL: none Drugs: None Lives: with Family Current Problem List Problem List Problems Medical Problems: (1) Abnormal EKG Status: Acute (2) Syncope and collapse Status: Acute Current Medications Current Medications Current Medications Acetaminophen/ Hydrocodone Bitart (Lortab 5/325) 1 tab 1X ONCE PO Last administered on 08/30/20at 16:40; Start 08/30/20 at 16:30; Stop 08/30/20 at 16:31; Status DC Iohexol (Omnipaque 350 Mg/ml) 100 ml 1X ONCE IV Last administered on 08/30/20at 18:26; Start 08/30/20 at 18:00; Stop 08/30/20 at 18:01; Status DC Info (CONTRAST GIVEN -- Rx MONITORING) 1 each PRN DAILY PRN MC SEE COMMENTS; Start 08/30/20 at 18:00; Stop 09/01/20 at 17:59 Morphine Sulfate (Morphine Sulfate) 4 mg 1X ONCE IVP Last administered on 08/30/20at 18:08; Start 08/30/20 at 18:15; Stop 08/30/20 at 18:16; Status DC Bacitracin (Bacitracin Zinc Oint Pkt) 1 pkt STK-MED ONCE TP ; Start 08/30/20 at 18:06; Stop 08/30/20 at 18:07; Status DC Ceftriaxone Sodium (Rocephin) 1 gm QHS IVP Last administered on 08/30/20at 22:05; Start 08/30/20 at 19:30 Acetaminophen/ Hydrocodone Bitart (Lortab 7.5/325) 1 tab PRN Q4HRS PRN PO MODERATE PAIN 4-6 Last administered on 08/31/20at 08:16; Start 08/30/20 at 22:30 Fentanyl Citrate (Fentanyl 2ml Vial) 50 mcg PRN Q2HR PRN IVP SEVERE PAIN 7-10 Last administered on 08/31/20at 04:14; Start 08/30/20 at 22:30 Ketorolac Tromethamine (Toradol 15mg Vial) 15 mg PRN Q6HRS PRN IVP MODERATE TO SEVERE PAIN Last administered on 08/31/20at 09:49; Start 08/31/20 at 08:45; Stop 09/03/20 at 08:44 Lidocaine (Lidoderm) 1 patch DAILY TD Last administered on 08/31/20at 09:12; Start 08/31/20 at 09:00 Miscellaneous (Lidoderm Patch Removal) 1 ea QHS MC ; Start 08/31/20 at 21:00 Active Scripts Active Orphenadrine Citrate 100 Mg Tablet.er 100 Mg PO BID PRN Protonix (Pantoprazole Sodium) 40 Mg Tablet.dr 40 Mg PO DAILYAC 30 Days Klor-Con M20 (Potassium Chloride) 20 Meq Tab.er.prt 20 Meq PO DAILYWBKFT 14 Days Lisinopril 5 Mg Tablet 5 Mg PO DAILY 30 Days Allergies Allergies: Coded Allergies: No Known Drug Allergies (Unverified , 05/24/16) ROS PSYCHOLOGICAL ROS: No: Hallucinations Eyes: No Loss of vision HEENT: No: Epistaxis Respiratory: No: Hemoptysis, Shortness of breath Cardiovascular: yes Chest Pain Gastrointestinal: No Vomiting, No Diarrhea Genitourinary: No Hematuria Neurological: Yes Other (Syncope); No Seizures Skin: No Rash Physical Exam General: Alert, Oriented X3 HEENT: Other (Bruise on her nose) Lungs: Clear to auscultation Heart: Regular rate, No murmurs Abdomen: Soft Extremities: No edema Neuro: Normal speech Psych/Mental Status: Mood NL Vitals VITALS Vital Signs Date Time Temp Pulse Resp B/P (MAP) Pulse Ox O2 Delivery O2 Flow Rate FiO2 08/31/20 08:23 Room Air 08/31/20 07:00 98.9 84 20 148/95 (112) 99 98.9 Labs Labs Laboratory Tests Test 08/30/20 16:30 08/30/20 20:00 08/31/20 04:30 White Blood Count 16.2 x10^3/uL (4.0-11.0) 14.1 x10^3/uL (4.0-11.0) Red Blood Count 4.59 x10^6/uL (3.50-5.40) 4.24 x10^6/uL (3.50-5.40) Hemoglobin 13.2 g/dL (12.0-15.5) 12.2 g/dL (12.0-15.5) Hematocrit 39.6 % (36.0-47.0) 36.6 % (36.0-47.0) Mean Corpuscular Volume 86 fL (79-100) 86 fL (79-100) Mean Corpuscular Hemoglobin 29 pg (25-35) 29 pg (25-35) Mean Corpuscular Hemoglobin Concent 33 g/dL (31-37) 34 g/dL (31-37) Red Cell Distribution Width 13.7 % (11.5-14.5) 13.9 % (11.5-14.5) Platelet Count 451 x10^3/uL (140-400) 426 x10^3/uL (140-400) Neutrophils (%) (Auto) 88 % (31-73) 77 % (31-73) Lymphocytes (%) (Auto) 6 % (24-48) 13 % (24-48) Monocytes (%) (Auto) 5 % (0-9) 8 % (0-9) Eosinophils (%) (Auto) 1 % (0-3) 1 % (0-3) Basophils (%) (Auto) 1 % (0-3) 1 % (0-3) Neutrophils # (Auto) 14.2 x10^3/uL (1.8-7.7) 10.9 x10^3/uL (1.8-7.7) Lymphocytes # (Auto) 0.9 x10^3/uL (1.0-4.8) 1.9 x10^3/uL (1.0-4.8) Monocytes # (Auto) 0.8 x10^3/uL (0.0-1.1) 1.2 x10^3/uL (0.0-1.1) Eosinophils # (Auto) 0.1 x10^3/uL (0.0-0.7) 0.1 x10^3/uL (0.0-0.7) Basophils # (Auto) 0.1 x10^3/uL (0.0-0.2) 0.1 x10^3/uL (0.0-0.2) Segmented Neutrophils % 78 % (35-66) Band Neutrophils % 6 % (0-9) Lymphocytes % 3 % (24-48) Monocytes % 12 % (0-10) Eosinophils % 1 % (0-5) Platelet Estimate Increased (ADEQUATE) Sodium Level 139 mmol/L (136-145) 136 mmol/L (136-145) Potassium Level 3.6 mmol/L (3.5-5.1) 4.3 mmol/L (3.5-5.1) Chloride Level 102 mmol/L (98-107) 103 mmol/L (98-107) Carbon Dioxide Level 27 mmol/L (21-32) 26 mmol/L (21-32) Anion Gap 10 (6-14) 7 (6-14) Blood Urea Nitrogen 8 mg/dL (7-20) 9 mg/dL (7-20) Creatinine 0.9 mg/dL (0.6-1.0) 0.7 mg/dL (0.6-1.0) Estimated GFR (Cockcroft-Gault) 80.5 107.6 Glucose Level 116 mg/dL (70-99) 99 mg/dL (70-99) Calcium Level 9.2 mg/dL (8.5-10.1) 8.4 mg/dL (8.5-10.1) Magnesium Level 2.1 mg/dL (1.8-2.4) Troponin I Quantitative < 0.017 ng/mL (0.000-0.055) Urine Collection Type Unknown Urine Color Yellow Urine Clarity Clear Urine pH 8.5 (<5.0-8.0) Urine Specific [place] >=1.030 (1.000-1.030) Urine Protein 30 mg/dL (NEG-TRACE) Urine Glucose (UA) Negative mg/dL (NEG) Urine Ketones (Stick) Negative mg/dL (NEG) Urine Blood Large (NEG) Urine Nitrite Negative (NEG) Urine Bilirubin Negative (NEG) Urine Urobilinogen Dipstick 0.2 mg/dL (0.2 mg/dL) Urine Leukocyte Esterase Large (NEG) Urine RBC 11-20 /HPF (0-2) Urine WBC Tntc /HPF (0-4) Urine Squamous Epithelial Cells Mod /LPF Urine Bacteria 0 /HPF (0-FEW) C-Reactive Protein, Quantitative 35.7 mg/L (0-3.3) Laboratory Tests Test 08/30/20 16:30 08/30/20 20:00 08/31/20 04:30 White Blood Count 16.2 x10^3/uL (4.0-11.0) 14.1 x10^3/uL (4.0-11.0) Red Blood Count 4.59 x10^6/uL (3.50-5.40) 4.24 x10^6/uL (3.50-5.40) Hemoglobin 13.2 g/dL (12.0-15.5) 12.2 g/dL (12.0-15.5) Hematocrit 39.6 % (36.0-47.0) 36.6 % (36.0-47.0) Mean Corpuscular Volume 86 fL (79-100) 86 fL (79-100) Mean Corpuscular Hemoglobin 29 pg (25-35) 29 pg (25-35) Mean Corpuscular Hemoglobin Concent 33 g/dL (31-37) 34 g/dL (31-37) Red Cell Distribution Width 13.7 % (11.5-14.5) 13.9 % (11.5-14.5) Platelet Count 451 x10^3/uL (140-400) 426 x10^3/uL (140-400) Neutrophils (%) (Auto) 88 % (31-73) 77 % (31-73) Lymphocytes (%) (Auto) 6 % (24-48) 13 % (24-48) Monocytes (%) (Auto) 5 % (0-9) 8 % (0-9) Eosinophils (%) (Auto) 1 % (0-3) 1 % (0-3) Basophils (%) (Auto) 1 % (0-3) 1 % (0-3) Neutrophils # (Auto) 14.2 x10^3/uL (1.8-7.7) 10.9 x10^3/uL (1.8-7.7) Lymphocytes # (Auto) 0.9 x10^3/uL (1.0-4.8) 1.9 x10^3/uL (1.0-4.8) Monocytes # (Auto) 0.8 x10^3/uL (0.0-1.1) 1.2 x10^3/uL (0.0-1.1) Eosinophils # (Auto) 0.1 x10^3/uL (0.0-0.7) 0.1 x10^3/uL (0.0-0.7) Basophils # (Auto) 0.1 x10^3/uL (0.0-0.2) 0.1 x10^3/uL (0.0-0.2) Segmented Neutrophils % 78 % (35-66) Band Neutrophils % 6 % (0-9) Lymphocytes % 3 % (24-48) Monocytes % 12 % (0-10) Eosinophils % 1 % (0-5) Platelet Estimate Increased (ADEQUATE) Sodium Level 139 mmol/L (136-145) 136 mmol/L (136-145) Potassium Level 3.6 mmol/L (3.5-5.1) 4.3 mmol/L (3.5-5.1) Chloride Level 102 mmol/L (98-107) 103 mmol/L (98-107) Carbon Dioxide Level 27 mmol/L (21-32) 26 mmol/L (21-32) Anion Gap 10 (6-14) 7 (6-14) Blood Urea Nitrogen 8 mg/dL (7-20) 9 mg/dL (7-20) Creatinine 0.9 mg/dL (0.6-1.0) 0.7 mg/dL (0.6-1.0) Estimated GFR (Cockcroft-Gault) 80.5 107.6 Glucose Level 116 mg/dL (70-99) 99 mg/dL (70-99) Calcium Level 9.2 mg/dL (8.5-10.1) 8.4 mg/dL (8.5-10.1) Magnesium Level 2.1 mg/dL (1.8-2.4) Troponin I Quantitative < 0.017 ng/mL (0.000-0.055) Urine Collection Type Unknown Urine Color Yellow Urine Clarity Clear Urine pH 8.5 (<5.0-8.0) Urine Specific [place] >=1.030 (1.000-1.030) Urine Protein 30 mg/dL (NEG-TRACE) Urine Glucose (UA) Negative mg/dL (NEG) Urine Ketones (Stick) Negative mg/dL (NEG) Urine Blood Large (NEG) Urine Nitrite Negative (NEG) Urine Bilirubin Negative (NEG) Urine Urobilinogen Dipstick 0.2 mg/dL (0.2 mg/dL) Urine Leukocyte Esterase Large (NEG) Urine RBC 11-20 /HPF (0-2) Urine WBC Tntc /HPF (0-4) Urine Squamous Epithelial Cells Mod /LPF Urine Bacteria 0 /HPF (0-FEW) C-Reactive Protein, Quantitative 35.7 mg/L (0-3.3) Assessment/Plan Assessment/Plan 1. Syncope, most probably vasovagal. CTA chest ruled out pulmonary embolism. EKG showed sinus rhythm with nonspecific ST/T changes and QTc interval 488. Telemetry did not show any significant arrhythmias so far. 2D echo in November 2019 showed LVEF 60 to 65% without any wall motion abnormalities. Plan for event monitor as an outpatient. 2. Hypertension: Blood pressure slightly elevated. Resume home medication lisinopril. 3. Chest pain with atypical features, most probably musculoskeletal. Myocardial infarction has been ruled out. We will consider ischemic evaluation as an outpatient. 4. Left shoulder pain: Per orthopedics Thank you for your consultation KURT ASHLEY MD Aug 31, 2020 11:03
--- NOTE | 2020-08-31 11:06 | PDOC ---
[facility] PROGRESS NOTE Date of Service DOS: DATE: 08/31/20 TIME: 11:03 Chief Complaint Chief Complaint Acute syncope due to vasovagal versus arrhythmia Left shoulder pain likely due to adhesive capsulitis Acute UTI Continue medicine care Pending orthopedic consult Pending cardiology evaluation Continue IV Rocephin for UTI Pending urine cultures Ambulation and SCD for DVT prophylaxis Pepcid GI prophylaxis while on NSAID treatment for shoulder pain ADA diet Full code Discussed with RN and SW Disposition inpatient care as above Surrogate decision maker is the Randy Jarvis History of Present Illness History of Present Illness 08/31/2020 No acute events overnight. Patient continues to have pain in her left shoulder. IV Toradol and diclofenac and Lidoderm patch was added for pain control. Pending orthopedic consultation. Patient's chart, labs, images were reviewed and discussed with RN 49-year-old -[place] female who was in the shower and then had a syncopal episode after she got out. She rates her symptoms at 6/10. She has associated dizziness. It has been occurring for just today, has not occurred recently. I discussed the case with the ER physician. We are going to admit the patient. We are going to get a CAT scan to rule out PE. She also has some slight cardiac arrhythmias. We are going to consult Cardiology. Vitals/I&O Vitals/I&O: Vital Signs Date Time Temp Pulse Resp B/P (MAP) Pulse Ox O2 Delivery O2 Flow Rate FiO2 08/31/20 08:23 Room Air 08/31/20 07:00 98.9 84 20 148/95 (112) 99 98.9 I & O 08/30/20 08/30/20 08/31/20 15:00 23:00 07:00 Intake Total 250 ml Balance 250 ml Labs Labs: Laboratory Tests Test 08/30/20 16:30 08/30/20 20:00 08/31/20 04:30 White Blood Count 16.2 x10^3/uL (4.0-11.0) 14.1 x10^3/uL (4.0-11.0) Red Blood Count 4.59 x10^6/uL (3.50-5.40) 4.24 x10^6/uL (3.50-5.40) Hemoglobin 13.2 g/dL (12.0-15.5) 12.2 g/dL (12.0-15.5) Hematocrit 39.6 % (36.0-47.0) 36.6 % (36.0-47.0) Mean Corpuscular Volume 86 fL (79-100) 86 fL (79-100) Mean Corpuscular Hemoglobin 29 pg (25-35) 29 pg (25-35) Mean Corpuscular Hemoglobin Concent 33 g/dL (31-37) 34 g/dL (31-37) Red Cell Distribution Width 13.7 % (11.5-14.5) 13.9 % (11.5-14.5) Platelet Count 451 x10^3/uL (140-400) 426 x10^3/uL (140-400) Neutrophils (%) (Auto) 88 % (31-73) 77 % (31-73) Lymphocytes (%) (Auto) 6 % (24-48) 13 % (24-48) Monocytes (%) (Auto) 5 % (0-9) 8 % (0-9) Eosinophils (%) (Auto) 1 % (0-3) 1 % (0-3) Basophils (%) (Auto) 1 % (0-3) 1 % (0-3) Neutrophils # (Auto) 14.2 x10^3/uL (1.8-7.7) 10.9 x10^3/uL (1.8-7.7) Lymphocytes # (Auto) 0.9 x10^3/uL (1.0-4.8) 1.9 x10^3/uL (1.0-4.8) Monocytes # (Auto) 0.8 x10^3/uL (0.0-1.1) 1.2 x10^3/uL (0.0-1.1) Eosinophils # (Auto) 0.1 x10^3/uL (0.0-0.7) 0.1 x10^3/uL (0.0-0.7) Basophils # (Auto) 0.1 x10^3/uL (0.0-0.2) 0.1 x10^3/uL (0.0-0.2) Segmented Neutrophils % 78 % (35-66) Band Neutrophils % 6 % (0-9) Lymphocytes % 3 % (24-48) Monocytes % 12 % (0-10) Eosinophils % 1 % (0-5) Platelet Estimate Increased (ADEQUATE) Sodium Level 139 mmol/L (136-145) 136 mmol/L (136-145) Potassium Level 3.6 mmol/L (3.5-5.1) 4.3 mmol/L (3.5-5.1) Chloride Level 102 mmol/L (98-107) 103 mmol/L (98-107) Carbon Dioxide Level 27 mmol/L (21-32) 26 mmol/L (21-32) Anion Gap 10 (6-14) 7 (6-14) Blood Urea Nitrogen 8 mg/dL (7-20) 9 mg/dL (7-20) Creatinine 0.9 mg/dL (0.6-1.0) 0.7 mg/dL (0.6-1.0) Estimated GFR (Cockcroft-Gault) 80.5 107.6 Glucose Level 116 mg/dL (70-99) 99 mg/dL (70-99) Calcium Level 9.2 mg/dL (8.5-10.1) 8.4 mg/dL (8.5-10.1) Magnesium Level 2.1 mg/dL (1.8-2.4) Troponin I Quantitative < 0.017 ng/mL (0.000-0.055) Urine Collection Type Unknown Urine Color Yellow Urine Clarity Clear Urine pH 8.5 (<5.0-8.0) Urine Specific [place] >=1.030 (1.000-1.030) Urine Protein 30 mg/dL (NEG-TRACE) Urine Glucose (UA) Negative mg/dL (NEG) Urine Ketones (Stick) Negative mg/dL (NEG) Urine Blood Large (NEG) Urine Nitrite Negative (NEG) Urine Bilirubin Negative (NEG) Urine Urobilinogen Dipstick 0.2 mg/dL (0.2 mg/dL) Urine Leukocyte Esterase Large (NEG) Urine RBC 11-20 /HPF (0-2) Urine WBC Tntc /HPF (0-4) Urine Squamous Epithelial Cells Mod /LPF Urine Bacteria 0 /HPF (0-FEW) C-Reactive Protein, Quantitative 35.7 mg/L (0-3.3) Assessment and Plan Assessmemt and Plan Problems Medical Problems: (1) Abnormal EKG Status: Acute (2) Syncope and collapse Status: Acute Comment Review of Relevant I have reviewed the following items livier (where applicable) has been applied. Medications: Current Medications Medications (Trade) Dose Ordered Sig/Celine Route PRN Reason Start Time Stop Time Status Last Admin Dose Admin Acetaminophen/ Hydrocodone Bitart (Lortab 5/325) 1 tab 1X ONCE PO 08/30/20 16:30 08/30/20 16:31 DC 08/30/20 16:40 Iohexol (Omnipaque 350 Mg/ml) 100 ml 1X ONCE IV 08/30/20 18:00 08/30/20 18:01 DC 08/30/20 18:26 Morphine Sulfate (Morphine Sulfate) 4 mg 1X ONCE IVP 08/30/20 18:15 08/30/20 18:16 DC 08/30/20 18:08 Ceftriaxone Sodium (Rocephin) 1 gm QHS IVP 08/30/20 19:30 08/30/20 22:05 Acetaminophen/ Hydrocodone Bitart (Lortab 7.5/325) 1 tab PRN Q4HRS PRN PO MODERATE PAIN 4-6 08/30/20 22:30 08/31/20 08:16 Fentanyl Citrate (Fentanyl 2ml Vial) 50 mcg PRN Q2HR PRN IVP SEVERE PAIN 7-10 08/30/20 22:30 08/31/20 04:14 Ketorolac Tromethamine (Toradol 15mg Vial) 15 mg PRN Q6HRS PRN IVP MODERATE TO SEVERE PAIN 08/31/20 08:45 09/03/20 08:44 08/31/20 09:49 Lidocaine (Lidoderm) 1 patch DAILY TD 08/31/20 09:00 08/31/20 09:12 Justifications for Admission Other Justification RANJIT ENRIQUEZ MD Aug 31, 2020 11:06
[2020-08-31] MEDS: FAMOTIDINE 20 MG TABLET. PO SCH ×2 (12:02→21:44)
[2020-08-31] MEDS: LISINOPRIL 5 MG TABLET. PO SCH (12:02)
[2020-08-31 15:00] VITALS: BP 161/97
--- NOTE | 2020-08-31 19:19 | CONS ---
DATE OF CONSULTATION: 08/31/2020 ORTHOPEDIC CONSULTATION REQUESTING PHYSICIAN: Dr. Llamas. REASON FOR CONSULTATION: Left shoulder pain. HISTORY OF PRESENT ILLNESS: The patient is a 49-year-old female who indicates left shoulder pain that has been going on for over a week. She was seen previously in the Emergency Department for the left shoulder pain. It just feels heavy and painful over the deltoid area. She had a syncopal episode for which she was admitted indicates that she got dizzy while she was in the shower and her daughter was helping her out of the shower when she suddenly passed out. She states that she really did not fall on the left shoulder, but it continues to hurt and over this time period developed radiating pain that goes all the way down to her fingers in the left hand. She did report a headache on her admission afterward to little bit unclear if the radiating pain symptoms developed before or after this most recent episode as she indicates it was probably going on beforehand. PAST MEDICAL HISTORY: Significant for migraine headaches, hypertension. PAST SURGICAL HISTORY: Breast biopsy and ablation of her uterus. FAMILY HISTORY: Noncontributory to her current condition. ALLERGIES: She has no known drug allergies. MEDICATIONS: List is reviewed. SOCIAL HISTORY: Denies smoking or drug use. Occasional social alcohol use. REVIEW OF SYSTEMS: Again, for the syncopal episode and some ongoing left shoulder pain prior to that episode, left radiating pain into the left upper extremity. Denies any current chest pain or shortness of breath. No change in memory, change in bowel or bladder function and really denies any neck or back pain and other than the heaviness of the left arm. No focal weakness, numbness or tingling. Otherwise, negative 14-point review of systems. PHYSICAL EXAMINATION: EXTREMITIES: She can lift her right arm up fully. Left arm is very painful on any attempted range of motion. She even struggles to flex her right elbow and says it is very painful in the shoulder if she does that and barely as a result, lifted against gravity. She has normal examination of right shoulder, elbow and bilateral wrists. She can flex and extend as well as abduct her fingers fully. No lower extremity tenderness and she has normal alignment, stability, bilateral hips, knees and ankles. No sign of any myelopathy. IMAGING: Left shoulder x-rays show significant calcific tendinitis at the insertion of the rotator cuff on the greater tuberosity. Glenohumeral joint is well maintained. IMPRESSION: 1. Left shoulder pain and adhesive capsulitis. 2. Left cervical radiculopathy. CT of the cervical spine shows degenerative changes with no evidence of instability showing some indirect evidence of multilevel central canal and neural foraminal stenosis. TREATMENT PLAN: I recommend an MRI of her left shoulder to evaluate the rotator cuff integrity as well as an MRI of her cervical spine to evaluate the left cervical radicular findings that she is having better potentially new or worsening in onset since the recent syncopal episode and a questionable fall that she may have had as she did hit her head. Again, CT does not show any instability, but certainly MRI would be indicated for cervical spine or nerve root compression that could account for the radiculopathy. SHERIF ARELLANO MD DR: MAMADOU/leonard JOB#: [id number] / [id number]
[2020-08-31 19:40] VITALS: BP 121/69
[2020-08-31] MEDS: PATCH REMOVAL. MC SCH (21:00)
[2020-08-31] MEDS: LACTOBACILLUS RHAMNOSUS GG 1 CAPSULE. PO SCH (21:45)
[2020-08-31 23:20] VITALS: BP 113/73
[2020-09-01] MEDS: HYDROcodone/APAP 7.5/325MG 1 TAB TABLET PO PRN ×4 (03:30→19:58)
[2020-09-01 03:45] VITALS: BP 120/80
[2020-09-01 07:00] VITALS: BP_SYST 151; BP_SYST 152; BP_DIAS 102; BP_DIAS 88
[2020-09-01 08:02] LABS: BASO % 0 % (0-3); EOS # 0.3 x10^3/uL (0.0-0.7); EOS % 3 % (0-3); HEMATOCRIT 36.2 % (36.0-47.0); LYMPH # 1.7 x10^3/uL (1.0-4.8); LYMPH % 19 % (24-48); MEAN CORPUSCULAR HEMOGLOBIN 29 pg (25-35); MEAN CORPUSCULAR HGB CONC 33 g/dL (31-37); MEAN CORPUSCULAR VOLUME 87 fL (79-100); MONO # 0.6 x10^3/uL (0.0-1.1); MONO % 7 % (0-9); NEUT # 6.4 x10^3/uL (1.8-7.7); NEUT % 71 % (31-73); PLATELET COUNT 398 x10^3/uL (140-400); RED BLOOD COUNT 4.16 x10^6/uL (3.50-5.40); RED CELL DISTRIBUTION WIDTH 14.1 % (11.5-14.5)
[2020-09-01 08:10] LABS: CALCIUM 8.4 mg/dL (8.5-10.1); CREATININE 0.8 mg/dL (0.6-1.0); GFR 92.2; POTASSIUM 3.6 mmol/L (3.5-5.1)
[2020-09-01] MEDS: LACTOBACILLUS RHAMNOSUS GG 1 CAPSULE. PO SCH ×2 (09:09→20:42)
[2020-09-01] MEDS: FAMOTIDINE 20 MG TABLET. PO SCH ×2 (09:09→20:42)
[2020-09-01] MEDS: LIDOCAINE (700MG/PATCH) PATCH. TD SCH (09:10)
[2020-09-01] MEDS: LISINOPRIL 5 MG TABLET. PO SCH (09:10)
[2020-09-01] MEDS: fentaNYL PF VIAL 100 MCG/2 ML VIAL IVP PRN ×3 (09:17→22:20)
[2020-09-01] MEDS ORDERED: diazePAM 5 MG TABLET PO ONE ×2 (10:00→15:00)
--- NOTE | 2020-09-01 10:18 | PDOC2 ---
NEUROLOGY CONSULT Date of Service DOS: DATE: 09/01/20 TIME: 10:12 Reason for Consult Reason for Consult: Neck, left shoulder, left arm pain Referring Physician Referring Physician: Dr. Lucille Llamas Source Source: Chart review, Patient History of Present Illness History of Present Illness The patient is a 49-year-old right-handed female who was admitted 2 days ago after fainting after taking a bath. She felt lightheaded and lost consciousness without convulsive activity, tongue biting, incontinence, or postictal state. I am asked to see her regarding 1 or 2 weeks of severe left shoulder and neck pain. The pain now radiates down the entire arm and the arm is numb. She has trouble moving the arm. There has been no particular inciting injury. She has had mild headaches. There is no history of stroke or seizure. She did have a head injury approximately 2 years ago and a fall at work. 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 Current Medications Current Medications Current Medications Acetaminophen/ Hydrocodone Bitart (Lortab 5/325) 1 tab 1X ONCE PO Last administered on 08/30/20at 16:40; Start 08/30/20 at 16:30; Stop 08/30/20 at 16:31; Status DC Iohexol (Omnipaque 350 Mg/ml) 100 ml 1X ONCE IV Last administered on 08/30/20at 18:26; Start 08/30/20 at 18:00; Stop 08/30/20 at 18:01; Status DC Info (CONTRAST GIVEN -- Rx MONITORING) 1 each PRN DAILY PRN MC SEE COMMENTS; Start 08/30/20 at 18:00; Stop 09/01/20 at 17:59 Morphine Sulfate (Morphine Sulfate) 4 mg 1X ONCE IVP Last administered on 08/30/20at 18:08; Start 08/30/20 at 18:15; Stop 08/30/20 at 18:16; Status DC Bacitracin (Bacitracin Zinc Oint Pkt) 1 pkt STK-MED ONCE TP ; Start 08/30/20 at 18:06; Stop 08/30/20 at 18:07; Status DC Ceftriaxone Sodium (Rocephin) 1 gm QHS IVP Last administered on 08/30/20at 22:05; Start 08/30/20 at 19:30 Acetaminophen/ Hydrocodone Bitart (Lortab 7.5/325) 1 tab PRN Q4HRS PRN PO MODERATE PAIN 4-6 Last administered on 09/01/20 09:09; Start 08/30/20 at 22:3 0 Fentanyl Citrate (Fentanyl 2ml Vial) 50 mcg PRN Q2HR PRN IVP SEVERE PAIN 7-10 Last administered on 09/01/20 09:17; Start 08/30/20 at 22:30 Ketorolac Tromethamine (Toradol 15mg Vial) 15 mg PRN Q6HRS PRN IVP MODERATE TO SEVERE PAIN Last administered on 08/31/20 16:28; Start 08/31/20 at 08:45; Stop 09/03/20 at 08:44 Lidocaine (Lidoderm) 1 patch DAILY TD Last administered on 09/01/20 09:10; Start 08/31/20 at 09:00 Miscellaneous (Lidoderm Patch Removal) 1 ea QHS MC Last administered on 08/31/20at 21:00; Start 08/31/20 at 21:00 Famotidine (Pepcid) 20 mg BID PO Last administered on 09/01/20 09:09; Start 08/31/20 at 12:00 Lisinopril (Prinivil) 5 mg DAILY PO Last administered on 09/01/20at 09:10; Start 08/31/20 at 12:00 Lactobacillus Rhamnosus (Culturelle) 1 cap BID PO Last administered on 09/01/20at 09:09; Start 08/31/20 at 21:00 Diazepam (Valium) 10 mg 1X ONCE PO ; Start 09/01/20 at 10:00; Stop 09/01/20 at 10:01; Status DC Active Scripts Active Orphenadrine Citrate 100 Mg Tablet.er 100 Mg PO BID PRN Protonix (Pantoprazole Sodium) 40 Mg Tablet.dr 40 Mg PO DAILYAC 30 Days Klor-Con M20 (Potassium Chloride) 20 Meq Tab.er.prt 20 Meq PO DAILYWBKFT 14 Days Lisinopril 5 Mg Tablet 5 Mg PO DAILY 30 Days Allergies Allergies: Coded Allergies: No Known Drug Allergies (Unverified , 05/24/16) ROS Review of System Negative for fever, chills, weight loss, shortness of breath, chest pain, indige stion, hematochezia, melena, and dysuria. Full 14-point review of systems is negative. Physical Exam Physical Examination General: Well-developed, well-nourished black female in no acute distress HEENT: Normocephalic andatraumatic. Temporal arteriespulsatile and nontender. Neck: Supple without bruit, no meningismus Musculoskeletal: Stability:see neurologic. Gait exam:see neurologic. Tone:see neurologic.Strength:see neurologic. Neurological: Mental Status:intact, orientation, memory, attention span/concentration, language, fund of knowledge normal. Cranial Nerves:Pupils equal and reactive to light, extraocular movements areintact, visual yao are full to confrontation. Facial sensation is normal. There is no facial asymmetry. Vestibulo-ocular reflex is intact. Palate elevates and tongue protrudes in midline. All other cranial related problems are negative except as mentioned before.Reflexes:2+ and symmetric with flexor plantar responses. Motor:Entire left arm is weak, 3/5, otherwise 5/5 strength with normal tone and bulk. Coordination:Finger-nose finger and [id number] testing are normal. Rapid alternating movements and fine finger movements are intact. Gait:Not tested. Sensory:Normal pinprick, vibration, light touch, proprioception. Vitals VITALS Vital Signs Date Time Temp Pulse Resp B/P (MAP) Pulse Ox O2 Delivery O2 Flow Rate FiO2 09/01/20 09:57 96 Room Air 09/01/20 09:10 84 152/88 09/01/20 07:00 98.7 19 98.7 Labs Labs Laboratory Tests Test 08/30/20 16:30 08/30/20 20:00 08/31/20 04:30 09/01/20 06:30 White Blood Count 16.2 x10^3/uL (4.0-11.0) 14.1 x10^3/uL (4.0-11.0) 9.0 x10^3/uL (4.0-11.0) Red Blood Count 4.59 x10^6/uL (3.50-5.40) 4.24 x10^6/uL (3.50-5.40) 4.16 x10^6/uL (3.50-5.40) Hemoglobin 13.2 g/dL (12.0-15.5) 12.2 g/dL (12.0-15.5) 12.0 g/dL (12.0-15.5) Hematocrit 39.6 % (36.0-47.0) 36.6 % (36.0-47.0) 36.2 % (36.0-47.0) Mean Corpuscular Volume 86 fL (79-100) 86 fL (79-100) 87 fL (79-100) Mean Corpuscular Hemoglobin 29 pg (25-35) 29 pg (25-35) 29 pg (25-35) Mean Corpuscular Hemoglobin Concent 33 g/dL (31-37) 34 g/dL (31-37) 33 g/dL (31-37) Red Cell Distribution Width 13.7 % (11.5-14.5) 13.9 % (11.5-14.5) 14.1 % (11.5-14.5) Platelet Count 451 x10^3/uL (140-400) 426 x10^3/uL (140-400) 398 x10^3/uL (140-400) Neutrophils (%) (Auto) 88 % (31-73) 77 % (31-73) 71 % (31-73) Lymphocytes (%) (Auto) 6 % (24-48) 13 % (24-48) 19 % (24-48) Monocytes (%) (Auto) 5 % (0-9) 8 % (0-9) 7 % (0-9) Eosinophils (%) (Auto) 1 % (0-3) 1 % (0-3) 3 % (0-3) Basophils (%) (Auto) 1 % (0-3) 1 % (0-3) 0 % (0-3) Neutrophils # (Auto) 14.2 x10^3/uL (1.8-7.7) 10.9 x10^3/uL (1.8-7.7) 6.4 x10^3/uL (1.8-7.7) Lymphocytes # (Auto) 0.9 x10^3/uL (1.0-4.8) 1.9 x10^3/uL (1.0-4.8) 1.7 x10^3/uL (1.0-4.8) Monocytes # (Auto) 0.8 x10^3/uL (0.0-1.1) 1.2 x10^3/uL (0.0-1.1) 0.6 x10^3/uL (0.0-1.1) Eosinophils # (Auto) 0.1 x10^3/uL (0.0-0.7) 0.1 x10^3/uL (0.0-0.7) 0.3 x10^3/uL (0.0-0.7) Basophils # (Auto) 0.1 x10^3/uL (0.0-0.2) 0.1 x10^3/uL (0.0-0.2) 0.0 x10^3/uL (0.0-0.2) Segmented Neutrophils % 78 % (35-66) Band Neutrophils % 6 % (0-9) Lymphocytes % 3 % (24-48) Monocytes % 12 % (0-10) Eosinophils % 1 % (0-5) Platelet Estimate Increased (ADEQUATE) Sodium Level 139 mmol/L (136-145) 136 mmol/L (136-145) 139 mmol/L (136-145) Potassium Level 3.6 mmol/L (3.5-5.1) 4.3 mmol/L (3.5-5.1) 3.6 mmol/L (3.5-5.1) Chloride Level 102 mmol/L (98-107) 103 mmol/L (98-107) 104 mmol/L (98-107) Carbon Dioxide Level 27 mmol/L (21-32) 26 mmol/L (21-32) 30 mmol/L (21-32) Anion Gap 10 (6-14) 7 (6-14) 5 (6-14) Blood Urea Nitrogen 8 mg/dL (7-20) 9 mg/dL (7-20) 13 mg/dL (7-20) Creatinine 0.9 mg/dL (0.6-1.0) 0.7 mg/dL (0.6-1.0) 0.8 mg/dL (0.6-1.0) Estimated GFR (Cockcroft-Gault) 80.5 107.6 92.2 Glucose Level 116 mg/dL (70-99) 99 mg/dL (70-99) 93 mg/dL (70-99) Calcium Level 9.2 mg/dL (8.5-10.1) 8.4 mg/dL (8.5-10.1) 8.4 mg/dL (8.5-10.1) Magnesium Level 2.1 mg/dL (1.8-2.4) Troponin I Quantitative < 0.017 ng/mL (0.000-0.055) Urine Collection Type Unknown Urine Color Yellow Urine Clarity Clear Urine pH 8.5 (<5.0-8.0) Urine Specific [place] >=1.030 (1.000-1.030) Urine Protein 30 mg/dL (NEG-TRACE) Urine Glucose (UA) Negative mg/dL (NEG) Urine Ketones (Stick) Negative mg/dL (NEG) Urine Blood Large (NEG) Urine Nitrite Negative (NEG) Urine Bilirubin Negative (NEG) Urine Urobilinogen Dipstick 0.2 mg/dL (0.2 mg/dL) Urine Leukocyte Esterase Large (NEG) Urine RBC 11-20 /HPF (0-2) Urine WBC Tntc /HPF (0-4) Urine Squamous Epithelial Cells Mod /LPF Urine Bacteria 0 /HPF (0-FEW) C-Reactive Protein, Quantitative 35.7 mg/L (0-3.3) Laboratory Tests Test 09/01/20 06:30 White Blood Count 9.0 x10^3/uL (4.0-11.0) Red Blood Count 4.16 x10^6/uL (3.50-5.40) Hemoglobin 12.0 g/dL (12.0-15.5) Hematocrit 36.2 % (36.0-47.0) Mean Corpuscular Volume 87 fL (79-100) Mean Corpuscular Hemoglobin 29 pg (25-35) Mean Corpuscular Hemoglobin Concent 33 g/dL (31-37) Red Cell Distribution Width 14.1 % (11.5-14.5) Platelet Count 398 x10^3/uL (140-400) Neutrophils (%) (Auto) 71 % (31-73) Lymphocytes (%) (Auto) 19 % (24-48) Monocytes (%) (Auto) 7 % (0-9) Eosinophils (%) (Auto) 3 % (0-3) Basophils (%) (Auto) 0 % (0-3) Neutrophils # (Auto) 6.4 x10^3/uL (1.8-7.7) Lymphocytes # (Auto) 1.7 x10^3/uL (1.0-4.8) Monocytes # (Auto) 0.6 x10^3/uL (0.0-1.1) Eosinophils # (Auto) 0.3 x10^3/uL (0.0-0.7) Basophils # (Auto) 0.0 x10^3/uL (0.0-0.2) Sodium Level 139 mmol/L (136-145) Potassium Level 3.6 mmol/L (3.5-5.1) Chloride Level 104 mmol/L (98-107) Carbon Dioxide Level 30 mmol/L (21-32) Anion Gap 5 (6-14) Blood Urea Nitrogen 13 mg/dL (7-20) Creatinine 0.8 mg/dL (0.6-1.0) Estimated GFR (Cockcroft-Gault) 92.2 Glucose Level 93 mg/dL (70-99) Calcium Level 8.4 mg/dL (8.5-10.1) Images Images CT HEAD AND CERVICAL SPINE WO Head: Just deep to the calvarium the left cerebral hemisphere there is a region of high density measuring up to approximately 4 mm in thickness. There is some patchy low density within the white matter including left centrum semiovale region. Ventricles and sulci are within normal limits. No acute osseous abnormality. Orbits and paranasal sinuses unremarkable. Cervical: Degenerative changes of the cervical spine with osteophyte formation at the vertebral body endplates as well as uncovertebral and facet hypertrophy. Multilevel central canal and neural foraminal stenosis. No definite acute fracture or dislocation. IMPRESSION: * Degenerative changes of the cervical spine without acute fracture or dislocation. * Just deep to the calvarium on the left there is a region of high density. Would suspect that this is artifactual in nature rather than a small amount of subdural blood. * There are some scattered low-density within the white matter. Nonspecific but can be from chronic small vessel ischemic disease or sequela of migraine. Assessment/Plan Assessment/Plan Impression: History and exam concerning for cervical radiculopathy, but she may be just splinting due to shoulder pain. Also consider brachial plexopathy. Against that as the normal sensory exam. CT abnormality most likely artifactual History of migraines Syncope, probably vasovagal Recommendations: Agree with MRI of cervical spine and shoulder, with treatment and additional studies depending on the results. Thank you for letting me help with the patient's care. LUTHER ZAVALETA MD Sep 01, 2020 10:18
--- NOTE | 2020-09-01 11:23 | PDOC ---
PROGRESS NOTES Date of Service: DATE: 09/01/20 TIME: 11:21 Chief Complaint Chief Complaint Acute syncope due to vasovagal versus arrhythmia Left shoulder pain likely due to adhesive capsulitis,status post fall. Acute UTI ruled out currently on rocephin, which will be discontinued in light of negative uirne culture Continue medicine care Pending orthopedic recommendations MRI pending Pending cardiology evaluation disocontinue IV Rocephin for UTI negative urine cultures Ambulation and SCD for DVT prophylaxis Pepcid GI prophylaxis while on NSAID treatment for shoulder pain ADA diet Full code Discussed with RN and SW Disposition inpatient care as above Surrogate decision maker is the Randy Jarvis History of Present Illness History of Present Illness 08/31/2020 No acute events overnight. Patient continues to have pain in her left shoulder. IV Toradol and diclofenac and Lidoderm patch was added for pain control. Pending orthopedic consultation. Patient's chart, labs, images were reviewed and discussed with RN 49-year-old -[place] female who was in the shower and then had a syncopal episode after she got out. She rates her symptoms at 6/10. She has associated dizziness. It has been occurring for just today, has not occurred recently. I discussed the case with the ER physician. We are going to admit the patient. We are going to get a CAT scan to rule out PE. She also has some slight cardiac arrhythmias. We are going to consult Cardiology. Vitals Vitals Vital Signs Date Time Temp Pulse Resp B/P (MAP) Pulse Ox O2 Delivery O2 Flow Rate FiO2 09/01/20 09:57 96 Room Air 09/01/20 09:10 84 152/88 09/01/20 07:00 98.7 19 98.7 Physical Exam General: Alert, Oriented X3 Heart: Regular rate, No murmurs Abdomen: Soft Extremities: No edema Labs LABS Laboratory Tests Test 09/01/20 06:30 White Blood Count 9.0 x10^3/uL (4.0-11.0) Red Blood Count 4.16 x10^6/uL (3.50-5.40) Hemoglobin 12.0 g/dL (12.0-15.5) Hematocrit 36.2 % (36.0-47.0) Mean Corpuscular Volume 87 fL (79-100) Mean Corpuscular Hemoglobin 29 pg (25-35) Mean Corpuscular Hemoglobin Concent 33 g/dL (31-37) Red Cell Distribution Width 14.1 % (11.5-14.5) Platelet Count 398 x10^3/uL (140-400) Neutrophils (%) (Auto) 71 % (31-73) Lymphocytes (%) (Auto) 19 % (24-48) Monocytes (%) (Auto) 7 % (0-9) Eosinophils (%) (Auto) 3 % (0-3) Basophils (%) (Auto) 0 % (0-3) Neutrophils # (Auto) 6.4 x10^3/uL (1.8-7.7) Lymphocytes # (Auto) 1.7 x10^3/uL (1.0-4.8) Monocytes # (Auto) 0.6 x10^3/uL (0.0-1.1) Eosinophils # (Auto) 0.3 x10^3/uL (0.0-0.7) Basophils # (Auto) 0.0 x10^3/uL (0.0-0.2) Sodium Level 139 mmol/L (136-145) Potassium Level 3.6 mmol/L (3.5-5.1) Chloride Level 104 mmol/L (98-107) Carbon Dioxide Level 30 mmol/L (21-32) Anion Gap 5 (6-14) Blood Urea Nitrogen 13 mg/dL (7-20) Creatinine 0.8 mg/dL (0.6-1.0) Estimated GFR (Cockcroft-Gault) 92.2 Glucose Level 93 mg/dL (70-99) Calcium Level 8.4 mg/dL (8.5-10.1) Assessment and Plan Assessmemt and Plan Problems Medical Problems: (1) Abnormal EKG Status: Acute (2) Syncope and collapse Status: Acute Comment Review of Relevant I have reviewed the following items livier (where applicable) has been applied. Labs Laboratory Tests Test 08/30/20 16:30 08/30/20 20:00 08/31/20 04:30 09/01/20 06:30 White Blood Count 16.2 x10^3/uL (4.0-11.0) 14.1 x10^3/uL (4.0-11.0) 9.0 x10^3/uL (4.0-11.0) Red Blood Count 4.59 x10^6/uL (3.50-5.40) 4.24 x10^6/uL (3.50-5.40) 4.16 x10^6/uL (3.50-5.40) Hemoglobin 13.2 g/dL (12.0-15.5) 12.2 g/dL (12.0-15.5) 12.0 g/dL (12.0-15.5) Hematocrit 39.6 % (36.0-47.0) 36.6 % (36.0-47.0) 36.2 % (36.0-47.0) Mean Corpuscular Volume 86 fL (79-100) 86 fL (79-100) 87 fL (79-100) Mean Corpuscular Hemoglobin 29 pg (25-35) 29 pg (25-35) 29 pg (25-35) Mean Corpuscular Hemoglobin Concent 33 g/dL (31-37) 34 g/dL (31-37) 33 g/dL (31-37) Red Cell Distribution Width 13.7 % (11.5-14.5) 13.9 % (11.5-14.5) 14.1 % (11.5-14.5) Platelet Count 451 x10^3/uL (140-400) 426 x10^3/uL (140-400) 398 x10^3/uL (140-400) Neutrophils (%) (Auto) 88 % (31-73) 77 % (31-73) 71 % (31-73) Lymphocytes (%) (Auto) 6 % (24-48) 13 % (24-48) 19 % (24-48) Monocytes (%) (Auto) 5 % (0-9) 8 % (0-9) 7 % (0-9) Eosinophils (%) (Auto) 1 % (0-3) 1 % (0-3) 3 % (0-3) Basophils (%) (Auto) 1 % (0-3) 1 % (0-3) 0 % (0-3) Neutrophils # (Auto) 14.2 x10^3/uL (1.8-7.7) 10.9 x10^3/uL (1.8-7.7) 6.4 x10^3/uL (1.8-7.7) Lymphocytes # (Auto) 0.9 x10^3/uL (1.0-4.8) 1.9 x10^3/uL (1.0-4.8) 1.7 x10^3/uL (1.0-4.8) Monocytes # (Auto) 0.8 x10^3/uL (0.0-1.1) 1.2 x10^3/uL (0.0-1.1) 0.6 x10^3/uL (0.0-1.1) Eosinophils # (Auto) 0.1 x10^3/uL (0.0-0.7) 0.1 x10^3/uL (0.0-0.7) 0.3 x10^3/uL (0.0-0.7) Basophils # (Auto) 0.1 x10^3/uL (0.0-0.2) 0.1 x10^3/uL (0.0-0.2) 0.0 x10^3/uL (0.0-0.2) Segmented Neutrophils % 78 % (35-66) Band Neutrophils % 6 % (0-9) Lymphocytes % 3 % (24-48) Monocytes % 12 % (0-10) Eosinophils % 1 % (0-5) Platelet Estimate Increased (ADEQUATE) Sodium Level 139 mmol/L (136-145) 136 mmol/L (136-145) 139 mmol/L (136-145) Potassium Level 3.6 mmol/L (3.5-5.1) 4.3 mmol/L (3.5-5.1) 3.6 mmol/L (3.5-5.1) Chloride Level 102 mmol/L (98-107) 103 mmol/L (98-107) 104 mmol/L (98-107) Carbon Dioxide Level 27 mmol/L (21-32) 26 mmol/L (21-32) 30 mmol/L (21-32) Anion Gap 10 (6-14) 7 (6-14) 5 (6-14) Blood Urea Nitrogen 8 mg/dL (7-20) 9 mg/dL (7-20) 13 mg/dL (7-20) Creatinine 0.9 mg/dL (0.6-1.0) 0.7 mg/dL (0.6-1.0) 0.8 mg/dL (0.6-1.0) Estimated GFR (Cockcroft-Gault) 80.5 107.6 92.2 Glucose Level 116 mg/dL (70-99) 99 mg/dL (70-99) 93 mg/dL (70-99) Calcium Level 9.2 mg/dL (8.5-10.1) 8.4 mg/dL (8.5-10.1) 8.4 mg/dL (8.5-10.1) Magnesium Level 2.1 mg/dL (1.8-2.4) Troponin I Quantitative < 0.017 ng/mL (0.000-0.055) Urine Collection Type Unknown Urine Color Yellow Urine Clarity Clear Urine pH 8.5 (<5.0-8.0) Urine Specific [place] >=1.030 (1.000-1.030) Urine Protein 30 mg/dL (NEG-TRACE) Urine Glucose (UA) Negative mg/dL (NEG) Urine Ketones (Stick) Negative mg/dL (NEG) Urine Blood Large (NEG) Urine Nitrite Negative (NEG) Urine Bilirubin Negative (NEG) Urine Urobilinogen Dipstick 0.2 mg/dL (0.2 mg/dL) Urine Leukocyte Esterase Large (NEG) Urine RBC 11-20 /HPF (0-2) Urine WBC Tntc /HPF (0-4) Urine Squamous Epithelial Cells Mod /LPF Urine Bacteria 0 /HPF (0-FEW) C-Reactive Protein, Quantitative 35.7 mg/L (0-3.3) Laboratory Tests Test 09/01/20 06:30 White Blood Count 9.0 x10^3/uL (4.0-11.0) Red Blood Count 4.16 x10^6/uL (3.50-5.40) Hemoglobin 12.0 g/dL (12.0-15.5) Hematocrit 36.2 % (36.0-47.0) Mean Corpuscular Volume 87 fL (79-100) Mean Corpuscular Hemoglobin 29 pg (25-35) Mean Corpuscular Hemoglobin Concent 33 g/dL (31-37) Red Cell Distribution Width 14.1 % (11.5-14.5) Platelet Count 398 x10^3/uL (140-400) Neutrophils (%) (Auto) 71 % (31-73) Lymphocytes (%) (Auto) 19 % (24-48) Monocytes (%) (Auto) 7 % (0-9) Eosinophils (%) (Auto) 3 % (0-3) Basophils (%) (Auto) 0 % (0-3) Neutrophils # (Auto) 6.4 x10^3/uL (1.8-7.7) Lymphocytes # (Auto) 1.7 x10^3/uL (1.0-4.8) Monocytes # (Auto) 0.6 x10^3/uL (0.0-1.1) Eosinophils # (Auto) 0.3 x10^3/uL (0.0-0.7) Basophils # (Auto) 0.0 x10^3/uL (0.0-0.2) Sodium Level 139 mmol/L (136-145) Potassium Level 3.6 mmol/L (3.5-5.1) Chloride Level 104 mmol/L (98-107) Carbon Dioxide Level 30 mmol/L (21-32) Anion Gap 5 (6-14) Blood Urea Nitrogen 13 mg/dL (7-20) Creatinine 0.8 mg/dL (0.6-1.0) Estimated GFR (Cockcroft-Gault) 92.2 Glucose Level 93 mg/dL (70-99) Calcium Level 8.4 mg/dL (8.5-10.1) Microbiology 08/30/20 Urine Culture - Final, Complete Medications Current Medications Acetaminophen/ Hydrocodone Bitart (Lortab 5/325) 1 tab 1X ONCE PO Last administered on 08/30/20at 16:40; Start 08/30/20 at 16:30; Stop 08/30/20 at 16:31; Status DC Iohexol (Omnipaque 350 Mg/ml) 100 ml 1X ONCE IV Last administered on 08/30/20at 18:26; Start 08/30/20 at 18:00; Stop 08/30/20 at 18:01; Status DC Info (CONTRAST GIVEN -- Rx MONITORING) 1 each PRN DAILY PRN MC SEE COMMENTS; Start 08/30/20 at 18:00; Stop 09/01/20 at 17:59 Morphine Sulfate (Morphine Sulfate) 4 mg 1X ONCE IVP Last administered on 08/30/20at 18:08; Start 08/30/20 at 18:15; Stop 08/30/20 at 18:16; Status DC Bacitracin (Bacitracin Zinc Oint Pkt) 1 pkt STK-MED ONCE TP ; Start 08/30/20 at 18:06; Stop 08/30/20 at 18:07; Status DC Ceftriaxone Sodium (Rocephin) 1 gm QHS IVP Last administered on 08/30/20at 22:05; Start 08/30/20 at 19:30 Acetaminophen/ Hydrocodone Bitart (Lortab 7.5/325) 1 tab PRN Q4HRS PRN PO MODERATE PAIN 4-6 Last administered on 09/01/20at 09:09; Start 08/30/20 at 22:30 Fentanyl Citrate (Fentanyl 2ml Vial) 50 mcg PRN Q2HR PRN IVP SEVERE PAIN 7-10 Last administered on 09/01/20at 09:17; Start 08/30/20 at 22:30 Ketorolac Tromethamine (Toradol 15mg Vial) 15 mg PRN Q6HRS PRN IVP MODERATE TO SEVERE PAIN Last administered on 08/31/20at 16:28; Start 08/31/20 at 08:45; Stop 09/03/20 at 08:44 Lidocaine (Lidoderm) 1 patch DAILY TD Last administered on 09/01/20at 09:10; Start 08/31/20 at 09:00 Miscellaneous (Lidoderm Patch Removal) 1 ea QHS MC Last administered on 08/31/20at 21:00; Start 08/31/20 at 21:00 Famotidine (Pepcid) 20 mg BID PO Last administered on 09/01/20at 09:09; Start 08/31/20 at 12:00 Lisinopril (Prinivil) 5 mg DAILY PO Last administered on 09/01/20at 09:10; Start 08/31/20 at 12:00 Lactobacillus Rhamnosus (Culturelle) 1 cap BID PO Last administered on 09/01/20at 09:09; Start 08/31/20 at 21:00 Diazepam (Valium) 10 mg 1X ONCE PO ; Start 09/01/20 at 10:00; Stop 09/01/20 at 10:01; Status DC Active Scripts Active Orphenadrine Citrate 100 Mg Tablet.er 100 Mg PO BID PRN Protonix (Pantoprazole Sodium) 40 Mg Tablet.dr 40 Mg PO DAILYAC 30 Days Klor-Con M20 (Potassium Chloride) 20 Meq Tab.er.prt 20 Meq PO DAILYWBKFT 14 Days Lisinopril 5 Mg Tablet 5 Mg PO DAILY 30 Days Vitals/I & O Vital Sign - Last 24 Hours 08/31/20 08/31/20 08/31/20 08/31/20 12:02 15:00 19:40 20:00 Temp 98.8 98.2 98.8 98.2 Pulse 78 82 85 Resp 16 18 B/P (MAP) 142/89 161/97 (118) 121/69 (86) Pulse Ox 94 98 O2 Delivery Room Air Room Air Room Air 08/31/20 09/01/20 09/01/20 09/01/20 23:20 03:45 07:00 08:00 Temp 98.7 98.6 98.7 98.7 98.6 98.7 Pulse 87 79 84 Resp 18 16 19 B/P (MAP) 113/73 (86) 120/80 (93) 152/88 (109) Pulse Ox 97 98 96 O2 Delivery Room Air Room Air 09/01/20 09/01/20 09/01/20 09/01/20 09:09 09:10 09:17 09:57 Pulse 84 B/P (MAP) 152/88 Pulse Ox 96 96 96 O2 Delivery Room Air Room Air Room Air 09/01/20 09:57 Pulse Ox 96 O2 Delivery Room Air Intake and Output 08/31/20 08/31/20 09/01/20 14:59 22:59 06:59 Intake Total 518 ml 900 ml 250 ml Output Total 500 ml 650 ml Balance 18 ml 900 ml -400 ml Justicifation of Admission Dx: Justifications for Admission: Justification of Admission Dx: Yes CHF: Cardiac Arrhythmias OSCAR BLAND MD Sep 01, 2020 11:23
[2020-09-01 11:37] VITALS: BP 149/73
--- NOTE | 2020-09-01 11:43 | EKG ---
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
--- NOTE | 2020-09-01 12:43 | NUR ---
SS following for discharge planning. SS reviewed pt chart and discussed with pt RN. Pt is from home and is currently on room air. PT recommending home with assistance. Dr. Adkins and Dr. Mitchell consulted. MRI's ordered. Cardiology planning for outpatient event monitor. SS will continue to follow for discharge planning.
[2020-09-01] MEDS: KETOROLAC 15 MG/ML VIAL. IVP PRN ×2 (13:21→21:50)
[2020-09-01] MEDS: NEOMY/BACITR/POLYMYXIN OINT PACKET. TP SCH ×2 (13:39→20:42)
[2020-09-01 15:00] VITALS: BP 139/85
--- NOTE | 2020-09-01 15:10 | PDOC ---
CARDIOLOGY PROGRESS NOTE SUBJECTIVE: HPI: Pt seen and evaluated at beside. Pt appears to be anxious and is breathing quickly. Pt denies any lightheaded/syncope since being in the hospital. Denies SOB/CP. OBJECTIVE: Vital Signs/I&O: Vital Signs Date Time Temp Pulse Resp B/P (MAP) Pulse Ox O2 Delivery O2 Flow Rate FiO2 09/01/20 13:16 97 Room Air 09/01/20 11:37 98.6 84 20 149/73 (98) 98.6 I & O 08/31/20 08/31/20 09/01/20 15:00 23:00 07:00 Intake Total 518 ml 900 ml 250 ml Output Total 500 ml 650 ml Balance 18 ml 900 ml -400 ml Objective: General: Appears anxious Heart: RRR. No murmur. Neck: No JVD Resp: CTA bilaterally. Shallow breathing. Abd: Nontender. SOft Extremities: Nontender. No BLE. Normal Cap refill. CURRENT MEDICATIONS: Current Medications Medications (Trade) Dose Ordered Sig/Celine Route PRN Reason Start Time Stop Time Status Last Admin Dose Admin Miscellaneous (Lidoderm Patch Removal) 1 ea QHS MC 08/31/20 21:00 08/31/20 21:00 Lactobacillus Rhamnosus (Culturelle) 1 cap BID PO 08/31/20 21:00 09/01/20 09:09 Neomycin/ Polymyxin/ Bacitracin (Triple Antibiotic Ointment) 1 pkt BID TP 09/01/20 13:45 09/01/20 13:39 Diazepam (Valium) 10 mg 1X ONCE PO 09/01/20 15:00 09/01/20 15:01 09/01/20 14:55 DIAGNOSTIC TESTING: Labs: Laboratory Tests 09/01/20 06:30 Laboratory Tests Test 09/01/20 06:30 White Blood Count 9.0 x10^3/uL (4.0-11.0) Red Blood Count 4.16 x10^6/uL (3.50-5.40) Hemoglobin 12.0 g/dL (12.0-15.5) Hematocrit 36.2 % (36.0-47.0) Mean Corpuscular Volume 87 fL (79-100) Mean Corpuscular Hemoglobin 29 pg (25-35) Mean Corpuscular Hemoglobin Concent 33 g/dL (31-37) Red Cell Distribution Width 14.1 % (11.5-14.5) Platelet Count 398 x10^3/uL (140-400) Neutrophils (%) (Auto) 71 % (31-73) Lymphocytes (%) (Auto) 19 % (24-48) L Monocytes (%) (Auto) 7 % (0-9) Eosinophils (%) (Auto) 3 % (0-3) Basophils (%) (Auto) 0 % (0-3) Neutrophils # (Auto) 6.4 x10^3/uL (1.8-7.7) Lymphocytes # (Auto) 1.7 x10^3/uL (1.0-4.8) Monocytes # (Auto) 0.6 x10^3/uL (0.0-1.1) Eosinophils # (Auto) 0.3 x10^3/uL (0.0-0.7) Basophils # (Auto) 0.0 x10^3/uL (0.0-0.2) Sodium Level 139 mmol/L (136-145) Potassium Level 3.6 mmol/L (3.5-5.1) Chloride Level 104 mmol/L (98-107) Carbon Dioxide Level 30 mmol/L (21-32) Anion Gap 5 (6-14) L Blood Urea Nitrogen 13 mg/dL (7-20) Creatinine 0.8 mg/dL (0.6-1.0) Estimated GFR (Cockcroft-Gault) 92.2 Glucose Level 93 mg/dL (70-99) Calcium Level 8.4 mg/dL (8.5-10.1) L ASSESSMENT: Syncope likely vasovagal due to vasodilation from being in the bathtub. HTN Anxiety PE ruled out neg CTA PLAN: Outpatient holter monitor HTN Continue lisinopril. Outpt amb bp monitoring. Justicifation of Admission Dx: Justifications for Admission: Justification of Admission Dx: Yes CHF: Cardiac Arrhythmias PREMA SAM MD Sep 01, 2020 15:10
--- NOTE | 2020-09-01 17:09 | RAD ---
EXAMINATION: Magnetic resonance imaging (MRI) of the cervical spine without contrast 09/01/2020 6:25 AM HISTORY: Left cervical radiculopathy TECHNIQUE: Multiplanar multi-weighted MRI of the cervical spine was performed without intravenous contrast using the standard cervical spine protocol. Contrast information: None administered COMPARISON: CT cervical spine 08/30/2020 FINDINGS: There is minimal retrolisthesis of C3 on C4, C4 on C5 and C5 on C6. Mild disc height loss at C5-C6 and C6-C7. Moderate intramarginal osteophytosis at C4-C5 and C5-C6. There is no prevertebral edema. Vertebral body heights are maintained. There is mild low T1 signal intensity involving the marrow which may be associated with chronic anemia or smoking history. Cervical spinal cord signal intensity is normal in all sequences. Posterior fossa is normal in appearance. Vertebral artery flow voids are maintained. Skull base is intact. Thyroid gland is normal in appearance. C2-C3: Mild disc bulge. Mild facet arthropathy. No neuroforaminal or spinal canal stenosis. C3-C4: There is a posterior discussed by complex with central disc protrusion. Mild left facet arthropathy. Mild left uncovertebral joint disease. Mild left neuroforaminal stenosis. Mild spinal canal stenosis without deformity of the cord or cord signal alteration. C4-C5: There is a mild disc bulge. Mild facet arthropathy. Mild uncovertebral joint disease. Mild neuroforaminal stenosis. Mild spinal canal stenosis. C5-C6: There is a posterior disc osteophyte complex with left central disc extrusion. Mild facet and uncovertebral joint disease. Moderate bilateral neural foraminal stenosis. Moderate spinal canal stenosis with mild deformity of the cord. Ligamentum flavum infolding is noted. No cord signal alteration. C6-C7: There is a posterior disc osteophyte complex with left central disc extrusion. There is mild facet arthropathy. Moderate left and moderate uncovertebral joint disease. Moderate to severe left neuroforaminal stenosis. Moderate spinal canal stenosis with minimal deformity of the cord. No cord signal alteration. C7-T1: Disc is normal in configuration. No neuroforaminal or spinal canal stenosis. IMPRESSION: Mild degenerative changes of the cervical spine are present, as described in detail above. Electronically signed by: Ela Galeano MD (09/01/2020 5:06 PM) [facility]
--- NOTE | 2020-09-01 17:18 | RAD ---
STUDY: MRI of the left shoulder without contrast INDICATION: Left shoulder pain and weakness. COMPARISON: 08/30/2020 and 08/19/2020 radiographs. TECHNIQUE: Multiplanar MR imaging of the left shoulder performed without the use of intravenous or intra-articular contrast. FINDINGS: AC joint: Minimal arthrosis. Edema-like signal and fluid involving the subdeltoid more so than subacromial aspects of the bursa. Rotator cuff: Globular hypointense foci most notably in the region of the posterior supraspinatus insertional fibers but extending to the anterior infraspinatus. The appearance is typical of hydroxyapatite deposition with partial extravasation into the overlying bursa. The supraspinatus is thickened and heterogeneous at the site of mineralization but there is no high-grade or full-thickness tear. The infraspinatus, teres minor and subscapularis are intact. Maintained rotator cuff muscular bulk. Labrum: Appears intact. Long head biceps tendon: Intact and normally located. Cartilage: Intact. Bones: Heterogeneous marrow signal but favored physiologic given patient age and gender. Miscellaneous: Edema/fluid signal along the superficial margin of the infraspinatus more so than teres minor and supraspinatus. Predominantly lateral and posterior deltoid muscle edema. Impression: Globular mineralization typical of calcium hydroxyapatite at the posterior supraspinatus more so than anterior infraspinatus and suspected to extravasate into the overlying subacromial subdeltoid bursa. Multifocal muscular edema and perimuscular edema/fluid in addition to fluid distention of the bursa. The findings are all favored secondary to the resorptive/symptomatic phase of calcific tendinitis and bursitis. Electronically signed by: JAVI MAHAN MD (09/01/2020 5:15 PM) [id number]
[2020-09-01 19:25] VITALS: BP 144/85
[2020-09-01] MEDS: cefTRIAXone IV Push 1 GM VIAL. IVP SCH (20:43)
[2020-09-01] MEDS: PATCH REMOVAL. MC SCH (20:43)
--- NOTE | 2020-09-01 22:06 | NUR ---
Pt Called out in pain 07/19 to lt shoulder , hydrocodone given prior toradol given at that time pt stated not helping will call for voltaren and will medicate pt.
[2020-09-01 23:10] VITALS: BP 124/80
[2020-09-02] MEDS ORDERED: MORPHINE SULFATE 2 MG/ML VIAL. IV PRN
[2020-09-02] MEDS ORDERED: DICLOFENAC SODIUM 1% TOPICAL GEL 100GM TUBE. TP PRN
[2020-09-02 03:45] VITALS: BP 139/89
[2020-09-02 07:00] VITALS: BP 170/103
[2020-09-02] MEDS: HYDROcodone/APAP 7.5/325MG 1 TAB TABLET PO PRN (08:52)
[2020-09-02] MEDS: KETOROLAC 15 MG/ML VIAL. IVP PRN (08:53)
[2020-09-02] MEDS: FAMOTIDINE 20 MG TABLET. PO SCH (08:53)
[2020-09-02] MEDS: LIDOCAINE (700MG/PATCH) PATCH. TD SCH (08:53)
[2020-09-02] MEDS: LACTOBACILLUS RHAMNOSUS GG 1 CAPSULE. PO SCH (08:53)
[2020-09-02] MEDS: LISINOPRIL 5 MG TABLET. PO SCH (08:53)
[2020-09-02] MEDS: NEOMY/BACITR/POLYMYXIN OINT PACKET. TP SCH (08:54)
[2020-09-02 09:32] LABS: CALCIUM 8.5 mg/dL (8.5-10.1); CREATININE 0.8 mg/dL (0.6-1.0); GFR 92.2; POTASSIUM 3.6 mmol/L (3.5-5.1)
[2020-09-02 09:43] LABS: BASO # 0.1 x10^3/uL (0.0-0.2); BASO % 1 % (0-3); EOS # 0.2 x10^3/uL (0.0-0.7); EOS % 3 % (0-3); HEMATOCRIT 36.5 % (36.0-47.0); LYMPH # 1.5 x10^3/uL (1.0-4.8); LYMPH % 21 % (24-48); MEAN CORPUSCULAR HEMOGLOBIN 29 pg (25-35); MEAN CORPUSCULAR HGB CONC 33 g/dL (31-37); MEAN CORPUSCULAR VOLUME 88 fL (79-100); MONO # 0.6 x10^3/uL (0.0-1.1); MONO % 8 % (0-9); NEUT # 4.8 x10^3/uL (1.8-7.7); NEUT % 67 % (31-73); PLATELET COUNT 369 x10^3/uL (140-400); RED BLOOD COUNT 4.16 x10^6/uL (3.50-5.40); RED CELL DISTRIBUTION WIDTH 13.8 % (11.5-14.5); WHITE BLOOD COUNT 7.2 x10^3/uL (4.0-11.0)
[2020-09-02 10:37] VITALS: BP 184/102
[2020-09-02] MEDS ORDERED: MELOXICAM 7.5 MG TABLET PO SCH (11:00)
--- NOTE | 2020-09-02 11:12 | PDOC ---
JACOB SINGER SUPERVISOR DYER 09/02/20 1112: CARDIO Progress Notes Date and Time Date of Service 09/02/2020 Time of Evaluation 1100 Subjective Subjective: No Chest Pain, No shortness of breath, No Palpitations Vitals Vitals Vital Signs Date Time Temp Pulse Resp B/P (MAP) Pulse Ox O2 Delivery O2 Flow Rate FiO2 09/02/20 10:37 98.3 93 18 184/102 (129) 96 Room Air 98.3 Weight Weight [ ] Input and Output Intake and Output Intake and Output 09/02/20 06:59 Intake Total 800 ml Output Total 1100 ml Balance -300 ml Intake Oral 800 ml Output Urine Total 1100 ml Laboratory Labs Laboratory Tests Test 09/02/20 07:50 White Blood Count 7.2 x10^3/uL (4.0-11.0) Red Blood Count 4.16 x10^6/uL (3.50-5.40) Hemoglobin 12.0 g/dL (12.0-15.5) Hematocrit 36.5 % (36.0-47.0) Mean Corpuscular Volume 88 fL (79-100) Mean Corpuscular Hemoglobin 29 pg (25-35) Mean Corpuscular Hemoglobin Concent 33 g/dL (31-37) Red Cell Distribution Width 13.8 % (11.5-14.5) Platelet Count 369 x10^3/uL (140-400) Neutrophils (%) (Auto) 67 % (31-73) Lymphocytes (%) (Auto) 21 % (24-48) Monocytes (%) (Auto) 8 % (0-9) Eosinophils (%) (Auto) 3 % (0-3) Basophils (%) (Auto) 1 % (0-3) Neutrophils # (Auto) 4.8 x10^3/uL (1.8-7.7) Lymphocytes # (Auto) 1.5 x10^3/uL (1.0-4.8) Monocytes # (Auto) 0.6 x10^3/uL (0.0-1.1) Eosinophils # (Auto) 0.2 x10^3/uL (0.0-0.7) Basophils # (Auto) 0.1 x10^3/uL (0.0-0.2) Sodium Level 139 mmol/L (136-145) Potassium Level 3.6 mmol/L (3.5-5.1) Chloride Level 105 mmol/L (98-107) Carbon Dioxide Level 26 mmol/L (21-32) Anion Gap 8 (6-14) Blood Urea Nitrogen 14 mg/dL (7-20) Creatinine 0.8 mg/dL (0.6-1.0) Estimated GFR (Cockcroft-Gault) 92.2 Glucose Level 88 mg/dL (70-99) Calcium Level 8.5 mg/dL (8.5-10.1) Microbiology Micro Microbiology 08/30/20 Urine Culture - Final, Complete Physical Exam HEENT: Neck Supple W Full Motion Chest: Symmetric LUNGS: Clear to Auscultation Heart: S1S2, RRR (SR) Abdomen: Soft N/T Extremities: No Calf Tenderness Neurology: alert, oriented, follow commands Assessment Assessment 1. Syncope: possibly from vasovagal. Recent EF and WM nml 2. HTN: labile 3. Anxiety Recommendations 1. May increase lisinopril and add HCTZ if BP is truly high 2. Outpt event monitor. Follow up in office. Justicifation of Admission Dx: Justifications for Admission: Justification of Admission Dx: Yes CHF: Cardiac Arrhythmias PREMA SAM MD 09/02/20 1805: CARDIO Progress Notes Plan Plan As above JACOB SINGER APRN Sep 02, 2020 11:12 PREMA SAM MD Sep 02, 2020 18:05
--- NOTE | 2020-09-02 11:22 | PDOC ---
PROGRESS NOTES Date of Service DATE: 09/02/20 TIME: 11:19 Assessment Problems Medical Problems: (1) Abnormal EKG Status: Acute (2) Syncope and collapse Status: Acute Splinting due to shoulder pain. No sign of radiculopathy or plexopathy CT abnormality most likely artifactual History of migraines Syncope, probably vasovagal Plan As per orthopedics No additional neurological studies or treatments needed. Subjective Still has severe left shoulder pain Objective Vital Signs Date Time Temp Pulse Resp B/P (MAP) Pulse Ox O2 Delivery O2 Flow Rate FiO2 09/02/20 10:37 98.3 93 18 184/102 (129) 96 Room Air 98.3 Intake and Output0 09/02/20 07:00 Intake Total 800 ml Output Total 1100 ml Balance -300 ml Intake Oral 800 ml Output Urine Total 1100 ml PHYSICAL EXAM Alert. Oriented to time, place and person. PERRL. EOMI. CN: no focal findings. Muscle tone: normal. Muscle strength: Entire left arm is weak, 3/5, splinting from pain, otherwise 5/5 DTR: 2+ Plantar reflex: flexor Gait: not examined in bed. Sensory exam: no abnormal findings. No cerebellar signs elicited. Review of Relevant I have reviewed the following items livier (where applicable) has been applied. Labs Laboratory Tests Test 09/01/20 06:30 09/02/20 07:50 White Blood Count 9.0 x10^3/uL (4.0-11.0) 7.2 x10^3/uL (4.0-11.0) Red Blood Count 4.16 x10^6/uL (3.50-5.40) 4.16 x10^6/uL (3.50-5.40) Hemoglobin 12.0 g/dL (12.0-15.5) 12.0 g/dL (12.0-15.5) Hematocrit 36.2 % (36.0-47.0) 36.5 % (36.0-47.0) Mean Corpuscular Volume 87 fL (79-100) 88 fL (79-100) Mean Corpuscular Hemoglobin 29 pg (25-35) 29 pg (25-35) Mean Corpuscular Hemoglobin Concent 33 g/dL (31-37) 33 g/dL (31-37) Red Cell Distribution Width 14.1 % (11.5-14.5) 13.8 % (11.5-14.5) Platelet Count 398 x10^3/uL (140-400) 369 x10^3/uL (140-400) Neutrophils (%) (Auto) 71 % (31-73) 67 % (31-73) Lymphocytes (%) (Auto) 19 % (24-48) 21 % (24-48) Monocytes (%) (Auto) 7 % (0-9) 8 % (0-9) Eosinophils (%) (Auto) 3 % (0-3) 3 % (0-3) Basophils (%) (Auto) 0 % (0-3) 1 % (0-3) Neutrophils # (Auto) 6.4 x10^3/uL (1.8-7.7) 4.8 x10^3/uL (1.8-7.7) Lymphocytes # (Auto) 1.7 x10^3/uL (1.0-4.8) 1.5 x10^3/uL (1.0-4.8) Monocytes # (Auto) 0.6 x10^3/uL (0.0-1.1) 0.6 x10^3/uL (0.0-1.1) Eosinophils # (Auto) 0.3 x10^3/uL (0.0-0.7) 0.2 x10^3/uL (0.0-0.7) Basophils # (Auto) 0.0 x10^3/uL (0.0-0.2) 0.1 x10^3/uL (0.0-0.2) Sodium Level 139 mmol/L (136-145) 139 mmol/L (136-145) Potassium Level 3.6 mmol/L (3.5-5.1) 3.6 mmol/L (3.5-5.1) Chloride Level 104 mmol/L (98-107) 105 mmol/L (98-107) Carbon Dioxide Level 30 mmol/L (21-32) 26 mmol/L (21-32) Anion Gap 5 (6-14) 8 (6-14) Blood Urea Nitrogen 13 mg/dL (7-20) 14 mg/dL (7-20) Creatinine 0.8 mg/dL (0.6-1.0) 0.8 mg/dL (0.6-1.0) Estimated GFR (Cockcroft-Gault) 92.2 92.2 Glucose Level 93 mg/dL (70-99) 88 mg/dL (70-99) Calcium Level 8.4 mg/dL (8.5-10.1) 8.5 mg/dL (8.5-10.1) Laboratory Tests Test 09/02/20 07:50 White Blood Count 7.2 x10^3/uL (4.0-11.0) Red Blood Count 4.16 x10^6/uL (3.50-5.40) Hemoglobin 12.0 g/dL (12.0-15.5) Hematocrit 36.5 % (36.0-47.0) Mean Corpuscular Volume 88 fL (79-100) Mean Corpuscular Hemoglobin 29 pg (25-35) Mean Corpuscular Hemoglobin Concent 33 g/dL (31-37) Red Cell Distribution Width 13.8 % (11.5-14.5) Platelet Count 369 x10^3/uL (140-400) Neutrophils (%) (Auto) 67 % (31-73) Lymphocytes (%) (Auto) 21 % (24-48) Monocytes (%) (Auto) 8 % (0-9) Eosinophils (%) (Auto) 3 % (0-3) Basophils (%) (Auto) 1 % (0-3) Neutrophils # (Auto) 4.8 x10^3/uL (1.8-7.7) Lymphocytes # (Auto) 1.5 x10^3/uL (1.0-4.8) Monocytes # (Auto) 0.6 x10^3/uL (0.0-1.1) Eosinophils # (Auto) 0.2 x10^3/uL (0.0-0.7) Basophils # (Auto) 0.1 x10^3/uL (0.0-0.2) Sodium Level 139 mmol/L (136-145) Potassium Level 3.6 mmol/L (3.5-5.1) Chloride Level 105 mmol/L (98-107) Carbon Dioxide Level 26 mmol/L (21-32) Anion Gap 8 (6-14) Blood Urea Nitrogen 14 mg/dL (7-20) Creatinine 0.8 mg/dL (0.6-1.0) Estimated GFR (Cockcroft-Gault) 92.2 Glucose Level 88 mg/dL (70-99) Calcium Level 8.5 mg/dL (8.5-10.1) Microbiology 08/30/20 Urine Culture - Final, Complete Medications Current Medications Acetaminophen/ Hydrocodone Bitart (Lortab 5/325) 1 tab 1X ONCE PO Last administered on 08/30/20at 16:40; Start 08/30/20 at 16:30; Stop 08/30/20 at 16:31; Status DC Iohexol (Omnipaque 350 Mg/ml) 100 ml 1X ONCE IV Last administered on 08/30/20at 18:26; Start 08/30/20 at 18:00; Stop 08/30/20 at 18:01; Status DC Info (CONTRAST GIVEN -- Rx MONITORING) 1 each PRN DAILY PRN MC SEE COMMENTS; Start 08/30/20 at 18:00; Stop 09/01/20 at 17:59; Status DC Morphine Sulfate (Morphine Sulfate) 4 mg 1X ONCE IVP Last administered on 08/30/20at 18:08; Start 08/30/20 at 18:15; Stop 08/30/20 at 18:16; Status DC Bacitracin (Bacitracin Zinc Oint Pkt) 1 pkt STK-MED ONCE TP ; Start 08/30/20 at 18:06; Stop 08/30/20 at 18:07; Status DC Ceftriaxone Sodium (Rocephin) 1 gm QHS IVP Last administered on 09/01/20at 20:43; Start 08/30/20 at 19:30 Acetaminophen/ Hydrocodone Bitart (Lortab 7.5/325) 1 tab PRN Q4HRS PRN PO MODERATE PAIN 4-6 Last administered on 09/02/20at 08:52; Start 08/30/20 at 22:30 Fentanyl Citrate (Fentanyl 2ml Vial) 50 mcg PRN Q2HR PRN IVP SEVERE PAIN 7-10 Last administered on 09/01/20at 22:20; Start 08/30/20 at 22:30; Stop 09/01/20 at 23:56; Status DC Ketorolac Tromethamine (Toradol 15mg Vial) 15 mg PRN Q6HRS PRN IVP MODERATE TO SEVERE PAIN Last administered on 09/02/20 08:53; Start 08/31/20 at 08:45; Stop 09/03/20 at 08:44 Lidocaine (Lidoderm) 1 patch DAILY TD Last administered on 09/02/20at 08:53; Start 08/31/20 at 09:00 Miscellaneous (Lidoderm Patch Removal) 1 ea QHS MC Last administered on 09/01/20at 20:43; Start 08/31/20 at 21:00 Famotidine (Pepcid) 20 mg BID PO Last administered on 09/02/20at 08:53; Start 08/31/20 at 12:00 Lisinopril (Prinivil) 5 mg DAILY PO Last administered on 09/02/20 08:53; Start 08/31/20 at 12:00 Lactobacillus Rhamnosus (Culturelle) 1 cap BID PO Last administered on 09/02/20at 08:53; Start 08/31/20 at 21:00 Diazepam (Valium) 10 mg 1X ONCE PO ; Start 09/01/20 at 10:00; Stop 09/01/20 at 10:01; Status Cancel Neomycin/ Polymyxin/ Bacitracin (Triple Antibiotic Ointment) 1 pkt BID TP Last administered on 09/02/20at 08:54; Start 09/01/20 at 13:45 Diazepam (Valium) 10 mg 1X ONCE PO Last administered on 09/01/20at 14:55; Start 09/01/20 at 15:00; Stop 09/01/20 at 15:01; Status DC Morphine Sulfate (Morphine Sulfate) 2 mg PRN Q3HRS PRN IV SEVERE PAIN 7-10; Start 09/02/20 at 00:00 Diclofenac Sodium (Voltaren) 1 joon PRN BID PRN TP ARTHRITIS PAIN; Start 09/02/20 at 00:00 Meloxicam (Mobic) 7.5 mg DAILY PO ; Start 09/02/20 at 11:00 Active Scripts Active Orphenadrine Citrate 100 Mg Tablet.er 100 Mg PO BID PRN Protonix (Pantoprazole Sodium) 40 Mg Tablet.dr 40 Mg PO DAILYAC 30 Days Klor-Con M20 (Potassium Chloride) 20 Meq Tab.er.prt 20 Meq PO DAILYWBKFT 14 Days Lisinopril 5 Mg Tablet 5 Mg PO DAILY 30 Days Vitals/I & O Vital Sign - Last 24 Hours 09/01/20 09/01/20 09/01/20 09/01/20 11:37 13:16 15:00 15:00 Temp 98.6 98.3 98.6 98.3 Pulse 84 86 Resp 20 20 B/P (MAP) 149/73 (98) 139/85 (103) Pulse Ox 97 97 97 96 O2 Delivery Room Air Room Air Room Air Room Air 09/01/20 09/01/20 09/01/20 09/01/20 15:36 15:36 19:15 19:25 Temp 97.8 97.8 Pulse 84 Resp 18 B/P (MAP) 144/85 (104) Pulse Ox 97 97 96 O2 Delivery Room Air Room Air Room Air Room Air 09/01/20 09/01/20 09/01/20 09/01/20 19:58 20:58 22:20 22:50 Resp 16 18 16 16 Pulse Ox 96 97 96 96 O2 Delivery Room Air Room Air Room Air Room Air 09/01/20 09/02/20 09/02/20 09/02/20 23:10 03:45 07:00 08:00 Temp 98.0 98.1 98.7 98.0 98.1 98.7 Pulse 84 82 87 Resp 18 18 18 B/P (MAP) 124/80 (95) 139/89 (106) 170/103 (125) Pulse Ox 96 98 99 O2 Delivery Room Air Room Air Room Air Room Air 09/02/20 09/02/20 09/02/20 09/02/20 08:52 08:53 09:52 10:37 Temp 98.3 98.3 Pulse 87 93 Resp 18 18 B/P (MAP) 170/103 184/102 (129) Pulse Ox 99 96 96 O2 Delivery Room Air Room Air Room Air Intake and Output 09/01/20 09/01/20 09/02/20 15:00 23:00 07:00 Intake Total 300 ml 500 ml Output Total 400 ml 700 ml Balance 300 ml -400 ml -200 ml Images Magnetic resonance imaging (MRI) of the cervical spine without contrast 09/01/2020 6:25 AM HISTORY: Left cervical radiculopathy TECHNIQUE: Multiplanar multi-weighted MRI of the cervical spine was performed without intravenous contrast using the standard cervical spine protocol. Contrast information: None administered COMPARISON: CT cervical spine 08/30/2020 FINDINGS: There is minimal retrolisthesis of C3 on C4, C4 on C5 and C5 on C6. Mild disc height loss at C5-C6 and C6-C7. Moderate intramarginal osteophytosis at C4-C5 and C5-C6. There is no prevertebral edema. Vertebral body heights are maintained. There is mild low T1 signal intensity involving the marrow which may be associated with chronic anemia or smoking history. Cervical spinal cord signal intensity is normal in all sequences. Posterior fossa is normal in appearance. Vertebral artery flow voids are maintained. Skull base is intact. Thyroid gland is normal in appearance. C2-C3: Mild disc bulge. Mild facet arthropathy. No neuroforaminal or spinal canal stenosis. C3-C4: There is a posterior discussed by complex with central disc protrusion. Mild left facet arthropathy. Mild left uncovertebral joint disease. Mild left neuroforaminal stenosis. Mild spinal canal stenosis without deformity of the cord or cord signal alteration. C4-C5: There is a mild disc bulge. Mild facet arthropathy. Mild uncovertebral joint disease. Mild neuroforaminal stenosis. Mild spinal canal stenosis. C5-C6: There is a posterior disc osteophyte complex with left central disc extrusion. Mild facet and uncovertebral joint disease. Moderate bilateral neural foraminal stenosis. Moderate spinal canal stenosis with mild deformity of the cord. Ligamentum flavum infolding is noted. No cord signal alteration. C6-C7: There is a posterior disc osteophyte complex with left central disc extrusion. There is mild facet arthropathy. Moderate left and moderate uncovertebral joint disease. Moderate to severe left neuroforaminal stenosis. Moderate spinal canal stenosis with minimal deformity of the cord. No cord signal alteration. C7-T1: Disc is normal in configuration. No neuroforaminal or spinal canal stenosis. IMPRESSION: Mild degenerative changes of the cervical spine are present, as described in detail above. MRI of the left shoulder without contrast INDICATION: Left shoulder pain and weakness. COMPARISON: 08/30/2020 and 08/19/2020 radiographs. TECHNIQUE: Multiplanar MR imaging of the left shoulder performed without the use of intravenous or intra-articular contrast. FINDINGS: AC joint: Minimal arthrosis. Edema-like signal and fluid involving the subdeltoid more so than subacromial aspects of the bursa. Rotator cuff: Globular hypointense foci most notably in the region of the posterior supraspinatus insertional fibers but extending to the anterior infraspinatus. The appearance is typical of hydroxyapatite deposition with partial extravasation into the overlying bursa. The supraspinatus is thickened and heterogeneous at the site of mineralization but there is no high-grade or full-thickness tear. The infraspinatus, teres minor and subscapularis are intact. Maintained rotator cuff muscular bulk. Labrum: Appears intact. Long head biceps tendon: Intact and normally located. Cartilage: Intact. Bones: Heterogeneous marrow signal but favored physiologic given patient age and gender. Miscellaneous: Edema/fluid signal along the superficial margin of the infraspinatus more so than teres minor and supraspinatus. Predominantly lateral and posterior deltoid muscle edema. Impression: Globular mineralization typical of calcium hydroxyapatite at the posterior supraspinatus more so than anterior infraspinatus and suspected to extravasate into the overlying subacromial subdeltoid bursa. Multifocal muscular edema and perimuscular edema/fluid in addition to fluid distention of the bursa. The findings are all favored secondary to the resorptive/symptomatic phase of calcific tendinitis and bursitis. Justicifation of Admission Dx: Justifications for Admission: Justification of Admission Dx: Yes CHF: Cardiac Arrhythmias LUTHER ZAVALETA MD Sep 02, 2020 11:22
--- NOTE | 2020-09-02 11:52 | PDOC ---
PROGRESS NOTES Date of Service DATE: 09/02/20 TIME: 11:44 Subjective Subjective Problems overnight: Still has left shoulder pain severe with movement and radiating arm pain with some left hand paresthesias Objective Vital Signs Vital Signs Date Time Temp Pulse Resp B/P (MAP) Pulse Ox O2 Delivery O2 Flow Rate FiO2 09/02/20 10:37 98.3 93 18 184/102 (129) 96 Room Air 98.3 Physical Exam Able to lift left shoulder but rotator cuff strength restricted secondary to pain there is no instability very tender over the subacromial bursa area. She does have a positive Spurling sign to the left reproducing her radiating arm pain and hand paresthesias I am unable to elicit a specific nerve root distribution Labs Laboratory Tests Test 09/01/20 06:30 09/02/20 07:50 White Blood Count 9.0 x10^3/uL (4.0-11.0) 7.2 x10^3/uL (4.0-11.0) Red Blood Count 4.16 x10^6/uL (3.50-5.40) 4.16 x10^6/uL (3.50-5.40) Hemoglobin 12.0 g/dL (12.0-15.5) 12.0 g/dL (12.0-15.5) Hematocrit 36.2 % (36.0-47.0) 36.5 % (36.0-47.0) Mean Corpuscular Volume 87 fL (79-100) 88 fL (79-100) Mean Corpuscular Hemoglobin 29 pg (25-35) 29 pg (25-35) Mean Corpuscular Hemoglobin Concent 33 g/dL (31-37) 33 g/dL (31-37) Red Cell Distribution Width 14.1 % (11.5-14.5) 13.8 % (11.5-14.5) Platelet Count 398 x10^3/uL (140-400) 369 x10^3/uL (140-400) Neutrophils (%) (Auto) 71 % (31-73) 67 % (31-73) Lymphocytes (%) (Auto) 19 % (24-48) 21 % (24-48) Monocytes (%) (Auto) 7 % (0-9) 8 % (0-9) Eosinophils (%) (Auto) 3 % (0-3) 3 % (0-3) Basophils (%) (Auto) 0 % (0-3) 1 % (0-3) Neutrophils # (Auto) 6.4 x10^3/uL (1.8-7.7) 4.8 x10^3/uL (1.8-7.7) Lymphocytes # (Auto) 1.7 x10^3/uL (1.0-4.8) 1.5 x10^3/uL (1.0-4.8) Monocytes # (Auto) 0.6 x10^3/uL (0.0-1.1) 0.6 x10^3/uL (0.0-1.1) Eosinophils # (Auto) 0.3 x10^3/uL (0.0-0.7) 0.2 x10^3/uL (0.0-0.7) Basophils # (Auto) 0.0 x10^3/uL (0.0-0.2) 0.1 x10^3/uL (0.0-0.2) Sodium Level 139 mmol/L (136-145) 139 mmol/L (136-145) Potassium Level 3.6 mmol/L (3.5-5.1) 3.6 mmol/L (3.5-5.1) Chloride Level 104 mmol/L (98-107) 105 mmol/L (98-107) Carbon Dioxide Level 30 mmol/L (21-32) 26 mmol/L (21-32) Anion Gap 5 (6-14) 8 (6-14) Blood Urea Nitrogen 13 mg/dL (7-20) 14 mg/dL (7-20) Creatinine 0.8 mg/dL (0.6-1.0) 0.8 mg/dL (0.6-1.0) Estimated GFR (Cockcroft-Gault) 92.2 92.2 Glucose Level 93 mg/dL (70-99) 88 mg/dL (70-99) Calcium Level 8.4 mg/dL (8.5-10.1) 8.5 mg/dL (8.5-10.1) Laboratory Tests Test 09/02/20 07:50 White Blood Count 7.2 x10^3/uL (4.0-11.0) Red Blood Count 4.16 x10^6/uL (3.50-5.40) Hemoglobin 12.0 g/dL (12.0-15.5) Hematocrit 36.5 % (36.0-47.0) Mean Corpuscular Volume 88 fL (79-100) Mean Corpuscular Hemoglobin 29 pg (25-35) Mean Corpuscular Hemoglobin Concent 33 g/dL (31-37) Red Cell Distribution Width 13.8 % (11.5-14.5) Platelet Count 369 x10^3/uL (140-400) Neutrophils (%) (Auto) 67 % (31-73) Lymphocytes (%) (Auto) 21 % (24-48) Monocytes (%) (Auto) 8 % (0-9) Eosinophils (%) (Auto) 3 % (0-3) Basophils (%) (Auto) 1 % (0-3) Neutrophils # (Auto) 4.8 x10^3/uL (1.8-7.7) Lymphocytes # (Auto) 1.5 x10^3/uL (1.0-4.8) Monocytes # (Auto) 0.6 x10^3/uL (0.0-1.1) Eosinophils # (Auto) 0.2 x10^3/uL (0.0-0.7) Basophils # (Auto) 0.1 x10^3/uL (0.0-0.2) Sodium Level 139 mmol/L (136-145) Potassium Level 3.6 mmol/L (3.5-5.1) Chloride Level 105 mmol/L (98-107) Carbon Dioxide Level 26 mmol/L (21-32) Anion Gap 8 (6-14) Blood Urea Nitrogen 14 mg/dL (7-20) Creatinine 0.8 mg/dL (0.6-1.0) Estimated GFR (Cockcroft-Gault) 92.2 Glucose Level 88 mg/dL (70-99) Calcium Level 8.5 mg/dL (8.5-10.1) Imaging MRI studies reviewed which show an intact rotator cuff but significant findings of calcific tendinitis in the subacromial bursa area MRI of the cervical spine shows areas of disc protrusion particularly at C5-6 C6-7 causing neuroforaminal stenosis and some spinal canal stenosis Assessment Assessment Left shoulder calcific tendinitis, left cervical radiculopathy Plan Plan of Care I went over with her my recommendation for a left shoulder arthroscopy with debridement of the calcific tendinitis and bursa due to her severe ongoing pain and MRI findings. According to case management, that would have to be done as an outpatient basis and precertified with insurance. Likewise a pain clinic consultation for possible consideration of epidural steroid injection would be done on an outpatient basis as would potential neurosurgery referral if her symptoms are not responsive I told her my plan for the shoulder would be to have my office pursue approval and potential scheduling of the shoulder arthroscopy next week if she wishes to proceed Justicifation of Admission Dx: Justifications for Admission: Justification of Admission Dx: Yes CHF: Cardiac Arrhythmias SHERIF ARELLANO MD Sep 02, 2020 11:52
[2020-09-02 11:54] VITALS: BP 133/77
[2020-09-02] MEDS ORDERED: Diclofenac Sodium TP (12:07)
[2020-09-02] MEDS ORDERED: MELO7.5T29 PO (12:07)
--- NOTE | 2020-09-02 12:27 | NUR ---
SS following up with discharge planning. SS reviewed pt chart and discussed with pt RN. Pt is currently on room air. COVID19 negative. PT/OT recommended home. Discharge order on the chart for home with self care.
--- NOTE | 2020-09-02 13:55 | NUR ---
Discharge Note: MARYBEL WATERMAN Discharge instructions and discharge home medications reviewed with Patient and a copy given. All questions have been answered and understanding verbalized. The following instructions and handouts were given: Syncope and musculoskeletal pain. Follow information with Dr. Adkins and Kb give to patient. Discontinued iv line and catheter intact. Patient discharged to home with self-care.
--- NOTE | 2020-09-02 15:09 | PDOC3 ---
Discharge Summary Visit Information Date of Admission: Aug 30, 2020 Date of Discharge: Sep 02, 2020 Admitting Diagnosis: Syncopal episode, rule out arrhythmia versus pulmonary e Admitting Diagnosis Comment: Syncopal episode, rule out arrhythmia versus pulmonary embolism versus vasovagal. Final Diagnosis Problems Medical Problems: (1) Abnormal EKG Status: Acute (2) Syncope and collapse Status: Acute Acute syncope due to vasovagal Left shoulder pain likely due to adhesive capsulitis,status post fall. Acute UTI ruled out currently on rocephin, which will be discontinued in light of negative uirne culture Brief Hospital Course Allergies Allergies Coded Allergies Type Severity Reaction Last Updated Verified No Known Drug Allergies 05/24/16 No Vital Signs Vital Signs Date Time Temp Pulse Resp B/P (MAP) Pulse Ox O2 Delivery O2 Flow Rate FiO2 09/02/20 11:54 98 20 133/77 (95) Room Air 09/02/20 10:37 98.3 96 98.3 Lab Results Laboratory Tests Test 09/01/20 06:30 09/02/20 07:50 White Blood Count 9.0 x10^3/uL (4.0-11.0) 7.2 x10^3/uL (4.0-11.0) Red Blood Count 4.16 x10^6/uL (3.50-5.40) 4.16 x10^6/uL (3.50-5.40) Hemoglobin 12.0 g/dL (12.0-15.5) 12.0 g/dL (12.0-15.5) Hematocrit 36.2 % (36.0-47.0) 36.5 % (36.0-47.0) Mean Corpuscular Volume 87 fL (79-100) 88 fL (79-100) Mean Corpuscular Hemoglobin 29 pg (25-35) 29 pg (25-35) Mean Corpuscular Hemoglobin Concent 33 g/dL (31-37) 33 g/dL (31-37) Red Cell Distribution Width 14.1 % (11.5-14.5) 13.8 % (11.5-14.5) Platelet Count 398 x10^3/uL (140-400) 369 x10^3/uL (140-400) Neutrophils (%) (Auto) 71 % (31-73) 67 % (31-73) Lymphocytes (%) (Auto) 19 % (24-48) 21 % (24-48) Monocytes (%) (Auto) 7 % (0-9) 8 % (0-9) Eosinophils (%) (Auto) 3 % (0-3) 3 % (0-3) Basophils (%) (Auto) 0 % (0-3) 1 % (0-3) Neutrophils # (Auto) 6.4 x10^3/uL (1.8-7.7) 4.8 x10^3/uL (1.8-7.7) Lymphocytes # (Auto) 1.7 x10^3/uL (1.0-4.8) 1.5 x10^3/uL (1.0-4.8) Monocytes # (Auto) 0.6 x10^3/uL (0.0-1.1) 0.6 x10^3/uL (0.0-1.1) Eosinophils # (Auto) 0.3 x10^3/uL (0.0-0.7) 0.2 x10^3/uL (0.0-0.7) Basophils # (Auto) 0.0 x10^3/uL (0.0-0.2) 0.1 x10^3/uL (0.0-0.2) Sodium Level 139 mmol/L (136-145) 139 mmol/L (136-145) Potassium Level 3.6 mmol/L (3.5-5.1) 3.6 mmol/L (3.5-5.1) Chloride Level 104 mmol/L (98-107) 105 mmol/L (98-107) Carbon Dioxide Level 30 mmol/L (21-32) 26 mmol/L (21-32) Anion Gap 5 (6-14) 8 (6-14) Blood Urea Nitrogen 13 mg/dL (7-20) 14 mg/dL (7-20) Creatinine 0.8 mg/dL (0.6-1.0) 0.8 mg/dL (0.6-1.0) Estimated GFR (Cockcroft-Gault) 92.2 92.2 Glucose Level 93 mg/dL (70-99) 88 mg/dL (70-99) Calcium Level 8.4 mg/dL (8.5-10.1) 8.5 mg/dL (8.5-10.1) Laboratory Tests Test 09/02/20 07:50 White Blood Count 7.2 x10^3/uL (4.0-11.0) Red Blood Count 4.16 x10^6/uL (3.50-5.40) Hemoglobin 12.0 g/dL (12.0-15.5) Hematocrit 36.5 % (36.0-47.0) Mean Corpuscular Volume 88 fL (79-100) Mean Corpuscular Hemoglobin 29 pg (25-35) Mean Corpuscular Hemoglobin Concent 33 g/dL (31-37) Red Cell Distribution Width 13.8 % (11.5-14.5) Platelet Count 369 x10^3/uL (140-400) Neutrophils (%) (Auto) 67 % (31-73) Lymphocytes (%) (Auto) 21 % (24-48) Monocytes (%) (Auto) 8 % (0-9) Eosinophils (%) (Auto) 3 % (0-3) Basophils (%) (Auto) 1 % (0-3) Neutrophils # (Auto) 4.8 x10^3/uL (1.8-7.7) Lymphocytes # (Auto) 1.5 x10^3/uL (1.0-4.8) Monocytes # (Auto) 0.6 x10^3/uL (0.0-1.1) Eosinophils # (Auto) 0.2 x10^3/uL (0.0-0.7) Basophils # (Auto) 0.1 x10^3/uL (0.0-0.2) Sodium Level 139 mmol/L (136-145) Potassium Level 3.6 mmol/L (3.5-5.1) Chloride Level 105 mmol/L (98-107) Carbon Dioxide Level 26 mmol/L (21-32) Anion Gap 8 (6-14) Blood Urea Nitrogen 14 mg/dL (7-20) Creatinine 0.8 mg/dL (0.6-1.0) Estimated GFR (Cockcroft-Gault) 92.2 Glucose Level 88 mg/dL (70-99) Calcium Level 8.5 mg/dL (8.5-10.1) Brief Hospital Course 49-year-old -[place] female who was in the shower and then had a syncopal episode after she got out. She rates her symptoms at 6/10. She has associated dizziness. It has been occurring for just today, has not occurred recently. I discussed the case with the ER physician. We are going to admit the patient. We are going to get a CAT scan to rule out PE. She also has some slight cardiac arrhythmias. We are going to consult Cardiology. 08/31/2020 No acute events overnight. Patient continues to have pain in her left shoulder. IV Toradol and diclofenac and Lidoderm patch was added for pain control. Pending orthopedic consultation. Patient's chart, labs, images were reviewed and discussed with RN 09/01/2020 Patient underwent MRI of her shoulder, no acute events were reported overnight her pain was still quite uncontrolled during my visit. Reassurance has been provided in her needs addressed to the best of my abilities 09/02/2020 Patient underwent MRI yesterday and evaluation by orthopedic surgery as follows: Imaging MRI studies reviewed which show an intact rotator cuff but significant findings of calcific tendinitis in the subacromial bursa area MRI of the cervical spine shows areas of disc protrusion particularly at C5-6 C6-7 causing neuroforaminal stenosis and some spinal canal stenosis Assessment Assessment Left shoulder calcific tendinitis, left cervical radiculopathy Plan Plan of Care I went over with her my recommendation for a left shoulder arthroscopy with debridement of the calcific tendinitis and bursa due to her severe ongoing pain and MRI findings. According to case management, that would have to be done as an outpatient basis and precertified with insurance. Likewise a pain clinic consultation for possible consideration of epidural steroid injection would be done on an outpatient basis as would potential neurosurgery referral if her symptoms are not responsive I told her my plan for the shoulder would be to have my office pursue approval and potential scheduling of the shoulder arthroscopy next week if she wishes to proceed She was deemed appropriate for discharge and arrangements were made for her to follow-up with Dr. Adkins early next week. Patient in agreement with the proposed plan of care and her family member at bedside voiced no concerns during my visit. Signs and symptoms of alarm and when to seek medical attention were discussed prior to discharge, she is in hemodynamically stable condition for discharge work excuse has been provided for the patient as well. Assessment Assessment General: Alert, Oriented X3 Heart: Regular rate, No murmurs Abdomen: Soft Extremities: No edema Able to lift left shoulder but rotator cuff strength restricted secondary to pain there is no instability very tender over the subacromial bursa area. She does have a positive Spurling sign to the left reproducing her radiating arm pain and hand paresthesias I am unable to elicit a specific nerve root distribution Discharge Information Condition at Discharge: Improved Follow Up: Weeks Disposition/Orders: D/C to Home Scheduled Lisinopril (Lisinopril) 5 Mg Tablet, 5 MG PO DAILY for blood pressure for 30 Days, #30 Prescribed by: TRUE BRONSON MD on 12/04/19 1149 Meloxicam (Meloxicam) 7.5 Mg Tablet, 7.5 MG PO BID for Pain for 15 Days, #30 Prescribed by: OSCAR BLAND MD on 09/02/20 1207 Pantoprazole Sodium (Protonix ) 40 Mg Tablet.dr, 40 MG PO DAILYAC for GERD for 30 Days, #30 Prescribed by: TRUE BRONSON MD on 12/04/19 1149 Potassium Chloride (Klor-Con M20) 20 Meq Tab.er.prt, 20 MEQ PO DAILYWBKFT for hussein pplement for 14 Days, #14 Prescribed by: TRUE BRONSON MD on 12/04/19 1149 Scheduled PRN Orphenadrine Citrate (Orphenadrine Citrate) 100 Mg Tablet.er, 100 MG PO BID PRN for MUSCLE PAIN, #14 Prescribed by: JOSE EDUARDO JAQUEZ D.O. on 08/19/20 1642 [Diclofenac Sodium] 100 GM GEL..GRAM., 1 SOHEILA TP PRN BID PRN for ARTHRITIS PAIN for 7 Days, #1 Ref 2 Prescribed by: OSCAR BLAND MD on 09/02/20 1207 Justicifation of Admission Dx: Justifications for Admission: Justification of Admission Dx: Yes CHF: Cardiac Arrhythmias OSCAR BLAND MD Sep 02, 2020 15:09
== END 2020-09-02 14:24 | disposition home or self-care (01) | DRG 558 ==
LOC: ER 15:07 → 2 NORTH 18:00
PROVIDERS: ADMIT Internal Medicine; ATTEND Internal Medicine
DX: M75.32 Calcific tendinitis of left shoulder (principal); M54.12 Radiculopathy, cervical region; K21.9 Gastro-esophageal reflux disease without esophagitis; G43.909 Migraine, unspecified, not intractable, without status migrainosus; F41.9 Anxiety disorder, unspecified; M75.00 Adhesive capsulitis of unspecified shoulder; I10 Essential (primary) hypertension; Z83.3 Family history of diabetes mellitus; Z82.49 Family history of ischemic heart disease and other diseases of the circulatory system
CPT/HCPCS: 36415; 70450; 71045; 71275; 72125; 72141; 73030; 73221; 80048; 81001; 83735; 84484; 85007; 85025; 86140; 87086; 93005; 96374; J0696; J1885; J2270; J3010; Q9967; 97116-GP; 97535-GO; 99285-25; G0378

== ENCOUNTER → 2020-09-26 | Outpatient (CLI) | payer BC ==
[2020-09-02 11:54] VITALS: BP 133/77
[~2020-09-26] MED LIST changes: +Diclofenac Sodium TP; +MELO7.5T29 PO; +OXYC1TAB19 PO
== END ==
LOC: LAB 10:30
PROVIDERS: ATTEND Orthopaedic Surgery
DX: Z01.812 Encounter for preprocedural laboratory examination (principal); Z20.828 Contact with and (suspected) exposure to other viral communicable diseases; M75.32 Calcific tendinitis of left shoulder
CPT/HCPCS: U0003

== ENCOUNTER 2020-09-30 06:40 | Day surgery (SDC) | payer BC ==
[~2020-09-30 06:40] MED LIST changes: +HYDROmorphone 2 MG/ML VIAL IVP PRN; +IV RINGERS,LACTATED 1000ML 1,000 ML IV SCH; +MORPHINE SULFATE 2 MG/ML VIAL. IVP PRN; -OXYC1TAB19 PO; +PROCHLORPERAZINE 10 MG/2 ML VIAL. IVP PRN; +fentaNYL PF VIAL 100 MCG/2 ML VIAL IVP PRN
[2020-09-30] MEDS ORDERED: LIDOCAINE 1% PF 2 ML VIAL. ONE (07:05)
[2020-09-30] MEDS ORDERED: DEXAMETHASONE SOD PHOS 20 MG/5 ML VIAL. ONE (07:05)
[2020-09-30] MEDS ORDERED: BUPIVACAINE MPF 0.5% 30 ML VIAL. ONE (07:05)
[2020-09-30] MEDS ORDERED: EPINEPHrine 1 MG/ML VIAL ONE (07:05)
[2020-09-30] MEDS ORDERED: MIDAZOLAM HCL/PF 2 MG/2 ML VIAL. ONE (07:06)
[2020-09-30] MEDS ORDERED: OXYC1TAB19 PO (07:16)
[2020-09-30] MEDS ORDERED: EPINEPHrine VIAL 30 MG/30 ML VIAL ONE (07:18)
[2020-09-30] MEDS ORDERED: ROCURONIUM 50 MG/5 ML VIAL. ONE (07:44)
[2020-09-30] MEDS ORDERED: fentaNYL PF VIAL 250 MCG/5 ML VIAL ONE (08:03)
[2020-09-30] MEDS ORDERED: SEVOFLURANE > 120 MINUTES. IH ONE (08:49)
[2020-09-30] MEDS ORDERED: ONDANSETRON PF 4 MG/2 ML VIAL. ONE (08:49)
[2020-09-30] MEDS ORDERED: PROPOFOL 10 MG/ML (20ML) VIAL. IV ONE (08:49)
[2020-09-30] MEDS ORDERED: DEXAMETHASONE SOD PHOS 4 MG/ML VIAL ONE (08:49)
[2020-09-30] MEDS ORDERED: LIDOCAINE 2% PF 5 ML VIAL. ONE (08:49)
[2020-09-30] MEDS ORDERED: ceFAZolin 2GM PREMIX 2 GM/50 ML BAG IV ONE (09:00)
[2020-09-30] MEDS ORDERED: PHENYLEPHRINE in 0.9% NACL PF 1 MG/10 ML SYRINGE. IV ONE (09:24)
--- NOTE | 2020-09-30 09:57 | DISCH ---
DISCHARGE INSTRUCTIONS Condition on Discharge Condition on Discharge: Stable Activity After Discharge Activity Instructions for Disc: Activity as tolerated, Other, see below (May do gentle fine motor use with elbow at side only such as eating writing and typing, no lifting arm away from the side under its own power) Driving Instructions after Dis: Do not drive today Weight Bearing Status after Di: Non weight bearing (May remove immobilizer during the day for gentle pendulum and passive range of motion exercises. Wear the immobilizer at all times at night or sleeping) Diet after Discharge Diet after Discharge: Regular Wound Incision Care Wound/Incision Care: Change dressing (Remove dressing in 2 days may then shower may place Band-Aids over portals) Community/Resources/Services Services at Discharge: PT EVALUATE & TREAT (Passive range of motion of left shoulder only due to rotator cuff repair expected 4 weeks postoperatively) Contacting the after DC Call your doctor for: Concerns you may have Follow-Up Follow up with: Dr. Adkins 1 week Treatment/Equipment after DC Adaptive Equipment Issued: None SHERIF ADKINS MD Sep 30, 2020 09:57
[2020-09-30] MEDS ORDERED: PROCHLORPERAZINE 10 MG/2 ML VIAL. ONE (09:59)
[2020-09-30] MEDS ORDERED: fentaNYL PF VIAL 100 MCG/2 ML VIAL ONE (10:27)
[2020-09-30] MEDS: fentaNYL PF VIAL 100 MCG/2 ML VIAL IVP PRN ×2 (10:32→10:40)
[2020-09-30] MEDS ORDERED: oxyCODONE/APAP 7.5/325 1 TAB TABLET PO ONE (10:45)
[2020-09-30 12:00] VITALS: BP 125/70
--- NOTE | 2020-09-30 21:24 | PDOC4 ---
Operative Note Operative Note Date of surgery: 09/30/2020 Preoperative diagnosis: Calcific tendinitis of distal supraspinatus tendon left shoulder Postoperative diagnosis: Same with severe compromise of bursal side of supr aspinatus distal insertion Operative procedure: Left shoulder arthroscopy debridement of calcific tendinitis and arthroscopic rotator cuff repair Surgeon: Lucille Wire Dropper: David frey assist Anesthesia: General plus scalene block Estimated blood loss: 10 cc Complications: None Operative indications: Please see my orthopedic clinic note for detailed operative indications and note that patient has had left shoulder pain and weakness unresponsive to nonoperative management and was noted on imaging studies to have calcific tendinitis of the distal supraspinatus insertion and a concern for significant compromise potentially of the tendon at its insertion. I had gone over with her the possibility of operative treatment and exploration debridement of the calcific tendinitis and possible rotator cuff repair depending on the extent of involvement or compromise of the tendon and addressing any other pathologic issues. We had covered risks benefits postoperative course possibility of nonhealing continued pain infection nerve or blood vessel damage medical or other anesthetic complications among others and the rationale for restriction of her activities. She agrees to proceed with surgical evaluation and treatment. Operative text: Patient was identified procedure verified patient placed in the supine position on operating table. After adequate amounts of general anesthesia were administered the left shoulder was gently examined under anesthesia found to have full range of motion and no instability and was then prepped and draped in standard sterile fashion and placed in the arthroscopic arm gonzalez with a total of 10 pounds of traction. After timeout was performed patient procedure identified and verified a standard posterior portal was established an anterior portal established using spinal needle localization and the shoulder joint was systematically examined. She had no compromise of the biceps anchor or the biceps tendon with no subluxation. She did have a partial- thickness tear of the subscapularis which was debrided back to stable tissue and otherwise noted to have a stable insertion. She also had some instability of the anterior superior labrum which was trimmed back to stable tissue she did have a anatomical variant of a sublabral foramen and likewise some anterior inferior labral fraying was debrided back to stable tissue as no separation had occurred capsule ligamentous structures were otherwise normal in appearance and the rotator cuff insertion and bare area of the humerus were noted to be normal from the articular surface. Subacromial space was then entered and bursa was then cleared to allow adequate visualization. She was found to have extensive irritation of her bursa and a very hyperemic area at the insertion of the distal supraspinatus corresponding to the area of a involvement with calcific tendinitis. Several fragments were expressed with the arthroscopic probe and with further exploration and gentle shaving with an arthroscopic shaver she was found to have significant compromise of the distal supraspinatus insertion. This involved at least 75% through the footprint area on the bursal side and I therefore elected to undergo rotator cuff repair where the tear was completed and footprint was debrided to bleeding bony tissue without decortication. A 2.9 juggernaut suture was deployed along the medial row and double loaded sutures were passed in a simple fashion and anchored laterally with a Quatro link 4.5 mm knotless anchor which resulted in an excellent watertight repair which was ex amined under all degrees of internal and external rotation. Joint was drained of arthroscopic fluid portals were closed with nylon suture sterile dressings were applied patient was placed in an immobilizer and returned to recovery room in stable condition having tolerated procedure well. David chaves assisted in patient positioning prepping draping suture management closure and dressings SHERIF ARELLANO MD Sep 30, 2020 21:24
== END 2020-09-30 12:32 | disposition home or self-care (01) ==
LOC: SURG 06:40
PROVIDERS: ATTEND Orthopaedic Surgery
DX: M75.32 Calcific tendinitis of left shoulder (principal); M25.512 Pain in left shoulder; K21.9 Gastro-esophageal reflux disease without esophagitis; F41.9 Anxiety disorder, unspecified; I10 Essential (primary) hypertension; D64.9 Anemia, unspecified; Z79.899 Other long term (current) drug therapy; Z98.890 Other specified postprocedural states
CPT/HCPCS: 29827; 81025; C1713; J0171; J0690; J0780; J1100; J2250; J2370; J2405; J2704; J3010; J3490; J7120

== ENCOUNTER → 2020-10-15 | Outpatient (CLI) | payer BC ==
[2020-09-30 12:00] VITALS: BP 125/70
[~2020-10-15] MED LIST changes: -HYDROmorphone 2 MG/ML VIAL IVP PRN; -IV RINGERS,LACTATED 1000ML 1,000 ML IV SCH; -MORPHINE SULFATE 2 MG/ML VIAL. IVP PRN; +OXYC1TAB19 PO; -PROCHLORPERAZINE 10 MG/2 ML VIAL. IVP PRN; +REGADENOSON 0.4 MG/5 ML DISP.SYRIN. IV ONE; -fentaNYL PF VIAL 100 MCG/2 ML VIAL IVP PRN
--- NOTE | 2020-10-15 18:12 | RAD ---
MR#: [id number] Date of Study: 10/15/2020 Ordering Physician: KURT ASHLEY, Referring Physician: JAKUB ISSA Tech: PRADEEP Doherty, ARRT (R) (N) APPROVED REPORT Test Type: Pharmacological Stress Nurse/Tech: Margy Conley R.N. Test Indications: c/p , syncope Cardiac History: htn Medications: See Electronic Medical Record Medical History: See Electronic Medical Record Resting ECG: SR Resting Heart Rate: 68 bpm Resting Blood Pressure: 139/94mmHg Pretest Chest Pain: No chest pain Nurse/Tech Notes S1S2, lungs CTA Consent: The procedure was explained to the patient in lay terms. Informed consent was witnessed. Danny eout was entered into [employer]. History and Stress Test performed by RT Lenka (Ayde) (N) Pharm. Details Pharmacologic stress testing was performed using 0.4mg per 5ml of regadenoson given intravenously ove r 7-10 seconds. Stress Symptoms feels uncomfortable and weird and was diaphoretic POST EXERCISE Reason for Termination: Infusion complete Max HR: 115 bpm Max Blood Pressure: 142/80mmHg Blood Pressure response to exercise: Normal blood pressure response during stress. Heart Rate response to exercise: wnl Chest Pain: No. Arrhythmia: No. ST Change: No. INTERPRETATION Stress EKG Conclusion: The resting EKG showed a sinus rhythm, mild nonspecific ST-T wave changes and a small septal Q wave. The stress EKG showed no significant changes from baseline. No EKG evidence of stress-induced ischemia. Imaging Protocol IMAGE PROTOCOL: Rest Tc-99m/stress Tc-99m 1 day Rest: Stress: Viability: Radiopharm.Tc99m [id number] Sestamibi Spub05tCk 32mCi Img Date 10/15/2020 10/15/2020 Inj-Img Kxkq27smw. 60min. Rest Admin Site:IV - Right ForearmAdministrator:RT Lenka (Ayde)(N) Stress Admin Site: IV - Right ForearmAdministrator: RT Lenka (R)(N) STRESS DATA End Diast. Vol.109.0mlLVEDV index BSA49.0ml End Syst. Vol.42.0mlLVESV index BSA19.0ml Myocardial Txgb170.0gEject. Luicuapa19.0% Stress Scores Regional WT1.00Summed WT4.00 Regional WM0.00Summed WM3.00 LV Perfusion The stress images showed no significant defects. The rest images showed no significant defects. Nuclear imaging shows no reversible ischemia or infarct. Wall Motion Left ventricular systolic function is normal with an ejection fraction of 62%. LV Perf. Quant 17 Seg. SSS0.00 17 Seg. SRS7.00 17 Seg. SDS0.00 Stress Defect Extent (% LAD)0.00Rest Defect Extent (% LAD)23.10Rev. Defect Extent (% LAD)0.00 Stress Defect Extent (% LCX) 0.00Rest Defect Extent (% LCX)0.00Rev. Defect Extent (% LCX)0.00 Stress Defect Extent (% RCA)0.00Rest Defect Extent (% RCA)0.00Rev. Defect Extent (% RCA)0.00 Stress Defect Extent (% CAMI)0.00Rest Defect Extent (% CAMI)12.60Rev. Defect Extent (% CAMI)0.00 Conclusion 1. No EKG evidence of stress-induced ischemia. 2. Nuclear imaging shows no reversible ischemia or infarct. 3. Normal left ventricular systolic function with an ejection fraction of 62%. 4. Low risk Lexiscan nuclear stress test. Signed by : Wil Arias MD Electronically Approved : 10/15/2020 18:11:37
== END ==
LOC: NM 09:30
PROVIDERS: ATTEND Internal Medicine Cardiovascular Disease
DX: I10 Essential (primary) hypertension (principal)
CPT/HCPCS: 78452; 93017; A9500; J2785

== ENCOUNTER 2021-04-20 07:24 | Emergency (ER) | payer BC ==
[~2021-04-20] VITALS: Ht 180.3 cm; Wt 110.0 kg
[~2021-04-20 07:24] MED LIST changes: -LISI-338 PO; +LISI-517 PO; -REGADENOSON 0.4 MG/5 ML DISP.SYRIN. IV ONE
[2021-04-20] MEDS ORDERED: diazePAM 5 MG TABLET PO ONE (08:00)
[2021-04-20] MEDS ORDERED: ACETAMINOPHEN 500 MG TABLET PO ONE (08:45)
[2021-04-20 09:14] LABS: BILIRUBIN,URINE NEGATIVE (NEG); CLARITY,URINE CLEAR; COLOR,URINE YELLOW; NITRITE,URINE NEGATIVE (NEG); PROTEIN,URINE NEGATIVE (NEG-TRACE); UROBILINOGEN,URINE 0.2 mg/dL (0.2 mg/dL)
[2021-04-20 09:26] LABS: BACTERIA,URINE 0 /HPF (0-FEW); RBC,URINE OCC /HPF (0-2); TRICHOMONAS,URINE PRESENT
--- NOTE | 2021-04-20 09:40 | RAD ---
Exam Date: 04/20/2021 8:[address] ABDOMEN+PELVIS WO, CT LUMBAR SPINE RECONSTRUCTION Indication: Reason: right flank pain, sciatica / Spl. Instructions: / History: . TECHNIQUE: CT examination of the abdomen and pelvis was performed without oral or intravenous contra st. One or more of the following dose reduction techniques were utilized: *Automated exposure control (AEC) *Adjustment of mA and/or kV according to patient size *Use of iterative reconstruction technique *CT scan done according to ALARA, or ALARA/IMAGE GENTLY FINDINGS: The visualized lung bases are clear. The liver, gallbladder, spleen, pancreas, and adrenal glands are normal. The kidneys are normal bilaterally. No hydronephrosis or hydroureter is seen. No urinary tract calc rito are seen. Urinary bladder is normal in appearance. There is no bowel obstruction or inflammation. The appendix is normal. No significant atherosclerotic calcifications are seen. No lymphadenopathy or ascites is seen. Degenerative changes are seen in the spine. IMPRESSION: Normal appearance of the kidneys and bladder. No hydronephrosis or hydroureter. No urinary tract ca lculi. Exam Date: 04/20/2021 8:[address] ABDOMEN+PELVIS WO, CT LUMBAR SPINE RECONSTRUCTION Indication: Reason: right flank pain, sciatica / Spl. Instructions: / History: . TECHNIQUE: CT scan of the lumbar spine was performed without intravenous contrast. Coronal and sagi ttal reconstructed images were reviewed as well. One or more of the following dose reduction techniq ues were utilized: *Automated exposure control (AEC) *Adjustment of mA and/or kV according to patient size *Use of iterative reconstruction technique *CT scan done according to ALARA, or ALARA/IMAGE GENTLY FINDINGS: Alignment is maintained without spondylolisthesis. The vertebral body heights are maintained without compression fracture. Mild multilevel degenerative changes are seen. No severe osseous central can al stenosis is seen. The visualized retroperitoneum and paraspinal soft tissue structures appear nor mal. At L3-L4, there is a small to moderate diffuse disc bulge with facet joint hypertrophy resulting in m ild central canal stenosis, mild right foraminal narrowing, and severe left foraminal narrowing. At L4-L5, there is small to moderate diffuse disc bulge with facet joint hypertrophy resulting in mil d central canal stenosis, moderate right foraminal narrowing, and moderate to severe left foraminal n arrowing. No significant central canal stenosis is seen at the other levels of the lumbar spine. IMPRESSION: Multilevel degenerative changes as described. Electronically signed by: Severino Wyane MD (04/20/2021 9:38 AM) [id number]
--- NOTE | 2021-04-20 09:54 | PHYS DOC ---
Past Medical History Past Medical History: Anxiety, Hypertension, Migraines Past Surgical History: Other Additional Past Surgical Histo: breast biposy, endometrial ablation, left arm Smoking Status: Former Smoker Alcohol Use: Rarely Drug Use: None General Adult EDM: Chief Complaint: BACK PAIN OR INJURY HPI: HPI: 50 old AA female past medical history of hypertension, anxiety and migraines, presents to the ED with complaints of sharp, right-sided low back pain, radiating down her right leg, started upon awakening this morning. Patient cannot recall any trauma, falls, increased physical activity or strenuous exercise. Patient reports has had symptoms like in the past but not this painful. States pain is exacerbated with bending forward, leaning backwards, walking or moving her upper body. Did not take anything for the pain prior to ED arrival. Denies any history of trauma, history of IV drug use, history of cancer, history of malignancy, history of immunocompromise state, neurologic complaints including saddle anesthesia, weakness or paresthesias, urinary retention, bowel or bladder incontinence, night pain, fever/chills/night sweats, unexplained weight loss, anticoagulants or coagulopathy, prolonged steroid use, presence of contusions or abrasions. Reports she still has her menses. No hi story of nephrolithiasis. Review of Systems: Review of Systems: Constitutional: Denies fever or chills. [] Eyes: Denies change in visual acuity. [] HENT: Denies nasal congestion or sore throat. [] Respiratory: Denies cough or shortness of breath. [] Cardiovascular: Denies chest pain or edema. [] GI: Denies abdominal pain, nausea, vomiting, bloody stools or diarrhea. [] : Denies dysuria or vaginal bleeding Musculoskeletal: Denies joint pain or swelling Integument: Denies rash or diaphoresis Neurologic: Denies headache, neck stiffness, focal weakness or sensory changes. [] Endocrine: Denies polyuria or polydipsia. [] Lymphatic: Denies swollen glands. [] Psychiatric: Denies depression or anxiety. [] Heart Score: C/O Chest Pain: No Risk Factors: Risk Factors: DM, Current or recent (<one month) smoker, HTN, HLP, family history of CAD, obesity. Risk Scores: Score 0 - 3: 2.5% MACE over next 6 weeks - Discharge Home Score 4 - 6: 20.3% MACE over next 6 weeks - Admit for Clinical Observation Score 7 - 10: 72.7% MACE over next 6 weeks - Early Invasive Strategies Current Medications: Current Medications Medications (Trade) Dose Ordered Sig/[facility] Start Time Stop Time Status Last Admin Dose Admin Acetaminophen (Tylenol) 1,000 mg 1X ONCE 04/20/21 08:45 04/20/21 08:46 DC 04/20/21 08:44 1,000 MG Diazepam (Valium) 5 mg 1X ONCE 04/20/21 08:00 04/20/21 08:01 DC 04/20/21 08:08 5 MG Allergies: Allergies: Allergies Coded Allergies Type Severity Reaction Last Updated Verified No Known Drug Allergies 09/30/20 No Physical Exam: PE: Constitutional: Well developed, well nourished, tall/obese, uncomfortable with movements/changing positions HENT: Normocephalic, atraumatic, Eyes: EOMI, conjunctiva normal, no discharge. Neck: Normal range of motion, supple, no nuchal rigidity or meningismus Cardiovascular: S1/2 present, regular rhythm Lungs & Thorax: Speaking in full sentences, bilateral equal chest rise, no tachypnea or increased work of breathing Abdomen: soft, no tenderness, Skin: Warm, dry, no erythema, no rash. [] Back: No midline step-offs or tenderness, reports right-sided lumbar paraspinal back pain, right straight leg positive, questionable cva ttp Extremities: No tenderness, no cyanosis, no lower extremity edema Neurologic: Alert and oriented X 3, normal motor function, normal sensory function, no focal deficits noted, antalgic gait Psychologic: Affect normal, judgement normal, mood normal. [] Current Patient Data: Labs: Laboratory Tests Test 04/20/21 07:33 04/20/21 07:37 Urine Collection Type Unknown Urine Color Yellow Urine Clarity Clear Urine pH 6.0 (<5.0-8.0) Urine Specific [place] 1.020 (1.000-1.030) Urine Protein Negative mg/dL (NEG-TRACE) Urine Glucose (UA) Negative mg/dL (NEG) Urine Ketones (Stick) Negative mg/dL (NEG) Urine Blood Small (NEG) Urine Nitrite Negative (NEG) Urine Bilirubin Negative (NEG) Urine Urobilinogen Dipstick 0.2 mg/dL (0.2 mg/dL) Urine Leukocyte Esterase Small (NEG) Urine RBC Occ /HPF (0-2) Urine WBC 5-10 /HPF (0-4) Urine Squamous Epithelial Cells Mod /LPF Urine Bacteria 0 /HPF (0-FEW) Urine Mucus Marked /LPF Urine Trichomonas Present POC Urine HCG, Qualitative Hcg negative (Negative) Vital Signs: Vital Signs Date Time Temp Pulse Resp B/P (MAP) Pulse Ox O2 Delivery O2 Flow Rate FiO2 04/20/21 08:04 98.0 89 16 163/94 (88) 98 98.0 EKG: EKG: [] Radiology/Procedures: Radiology/Procedures: IMAGING REPORT Signed 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 PHYSICIAN: FRANK MILES DO REASON: right flank pain, sciatica PROCEDURE: CT ABDOMEN PELVIS WO CONTRAST Exam Date: 04/20/2021 8:[address] ABDOMEN+PELVIS WO, CT LUMBAR SPINE RECONSTRUCTION Indication: Reason: right flank pain, sciatica / Spl. Instructions: / History: . TECHNIQUE: CT examination of the abdomen and pelvis was performed without oral or intravenous contrast. One or more of the following dose reduction techniques were utilized: *Automated exposure control (AEC) *Adjustment of mA and/or kV according to patient size *Use of iterative reconstruction technique *CT scan done according to ALARA, or ALARA/IMAGE GENTLY FINDINGS: The visualized lung bases are clear. The liver, gallbladder, spleen, pancreas, and adrenal glands are normal. The kidneys are normal bilaterally. No hydronephrosis or hydroureter is seen. No urinary tract calculi are seen. Urinary bladder is normal in appearance. There is no bowel obstruction or inflammation. The appendix is normal. No significant atherosclerotic calcifications are seen. No lymphadenopathy or ascites is seen. Degenerative changes are seen in the spine. IMPRESSION: Normal appearance of the kidneys and bladder. No hydronephrosis or hydroureter. No urinary tract calculi. Exam Date: 04/20/2021 8:[address] ABDOMEN+PELVIS WO, CT LUMBAR SPINE RECONSTRUCTION Indication: Reason: right flank pain, sciatica / Spl. Instructions: / History: . TECHNIQUE: CT scan of the lumbar spine was performed without intravenous contrast. Coronal and sagittal reconstructed images were reviewed as well. One or more of the following dose reduction techniques were utilized: *Automated exposure control (AEC) *Adjustment of mA and/or kV according to patient size *Use of iterative reconstruction technique *CT scan done according to ALARA, or ALARA/IMAGE GENTLY FINDINGS: Alignment is maintained without spondylolisthesis. The vertebral body heights are maintained without compression fracture. Mild multilevel degenerative changes are seen. No severe osseous central canal stenosis is seen. The visualized retroperitoneum and paraspinal soft tissue structures appear normal. At L3-L4, there is a small to moderate diffuse disc bulge with facet joint hypertrophy resulting in mild central canal stenosis, mild right foraminal narrowing, and severe left foraminal narrowing. At L4-L5, there is small to moderate diffuse disc bulge with facet joint hypertrophy resulting in mild central canal stenosis, moderate right foraminal narrowing, and moderate to severe left foraminal narrowing. No significant central canal stenosis is seen at the other levels of the lumbar spine. IMPRESSION: Multilevel degenerative changes as described. Electronically signed by: Lidia Wayne MD (04/20/2021 9:38 AM) [id number] DICTATED and SIGNED BY: LIDIA WAYNE MD DATE: 04/20/21 [id number] 0 Course & Med Decision Making: Course & Med Decision Making Pertinent Labs and Imaging studies reviewed. (See chart for details) Concern for right-sided lumbar back pain in the setting of mild to moderate disc herniations and radiculopathy. Patient with no neurologic deficits, is afebrile. Pain improved after Valium. I reviewed CT images by myself, aorta measured in 2 dimensions -no obvious dilatation of abdominal or infrarenal aorta. Patient initially declined narcotic analgesia "I don't like taking medications." Incidental finding of trichomonas. Small blood on UA -not on menses. Hematuria likely from trichomonas infection-pt with no pelvic pain or normal vaginal discharge/itching/odor/dysuria or hematuria. Will discharge home with strict ED return precautions were given for saddle anesthesia, urine or bowel retention or incontinence, weakness, difficulties walking, fever or neck stiffness. Encouraged urgent outpatient follow-up with PMD and neurosurgery. Life-threatening processes were considered but are low suspicion at this time, given history, physical exam and ED workup. Pt was educated on all prescription medications and adverse effects. All patient's questions were answered and pt was stable at time of discharge. Life/limb-threatening differential includes but is not limited to, aortic dissection/aneurysm, cauda equina syndrome, transverse myelitis, spinal cord/epidural compression syndromes, discitis, spinal stenosis, epidural abscess or hematoma, osteomyelitis, disc herniation, surgical abdomen, stable or unstable fracture, renal/ureteral colic, sepsis, meningitis, musculoskeletal injury, traumatic injury, intraabdominal/retroperitoneal or pelvic bleeding. I have spoken with the patient and/or caregivers. I explained the patient's condition, diagnoses and treatment plan based on the information available to me at this time. I have answered the patient and/or caregiver's questions and addressed any concerns. The patient and/or caregivers have a good understanding of patient's diagnosis, condition and treatment plan as can be expected at this point. Vital signs have been stable. Patient's condition is stable and appropriate for discharge from the emergency department. Patient will pursue further outpatient evaluation with primary care physician or other designated or consulting physician as outlined in the discharge instructions. The patient and/or caregivers are agreeable to this plan of care and follow-up instructions have been explained in detail. The patient and/or caregivers have received these instructions in written form and have expressed an understanding of the discharge instructions. The patient and/or caregivers are aware that any significant change of condition or worsening of symptoms should prompt immediate return to this or the closest emergency department or call to 911. Candice Disclaimer: Candice Disclaimer: This electronic medical record was generated, in whole or in part, using a voice recognition dictation system. Departure Departure Impression: Primary Impression: Lumbar disc herniation with radiculopathy Additional Impressions: Back pain Trichomonas infection Disposition: HOME / SELF CARE / HOMELESS Condition: STABLE Referrals: STEPHANIE MCGRATH DO (PCP) in 1-2 days for re-evaluation Patient Instructions: Back Pain, Adult, Herniated Disk, Safe Sex, Trichomoniasis Additional Instructions: FOLLOW UP WITH NEUROSURGERY: FOR DEFINITIVE MANAGEMENT of back pain Neurological Surgery [facility] [address] [place] [address] EMERGENCY DEPARTMENT GENERAL DISCHARGE INSTRUCTIONS Thank you for coming to [facility] Emergency Department (ED) karen vincent and trusting us with you care. We trust that you had a positive experience in our Emergency Department. If you wish to speak to the department management, you may call the Director at [phone]. YOUR FOLLOW UP INSTRUCTIONS ARE FOLLOWS: 1. Do you have a private Doctor? If you do not have a private doctor, please ask for a resource list of physicians or clinics that may be able to assist you with follow up care. 2. The Emergency Physicain has interpreted your x-rays. The X-Ray specialist will also review them. If there is a change in the findings, you will be notified in 48 hours when at all possible. 3. A lab test or culture has been done, your results will be reviewed and you will be notified if you need a change in treatment. ADDITIONAL INSTRUCTIONS AND INFORMATION: 1. Your care today has been supervised by a physician who is specially trained in emergency care. Many problems require more than one evaluation for a complete diagnosis and treatment. We recommend that you schedule your follow up appointment as recommended to ensure complete treatment of you illness or injury. If you are unable to obtain follow up care and continue to have a problem, or if your condition worsens, we recommend that you return to the ED. 2. We are not able to safely determine your condition over the phone nor are we able to give sound medical advice over the phone. For these safety reasons, if you call for medical advice we will ask you to come to the ED for further evaluation. 3. If you have any questions regarding these discharge instructions please call the ED at [phone]. SAFETY INFORMATION: In the interest of safety, wellness, and injury prevention; we encourage you to wear your sealbelt, if you smoke; quite smoking, and we encourage family to use a protective helmet for bicycling and other sporting events that present an increased risk for head injury. IF YOUR SYMPTOMS WORSEN OR NEW SYMPTOMS DEVELOP, OR YOU HAVE CONCERNS ABOUT YOUR CONDITION; OR IF YOUR CONDITION WORSENS WHILE YOU ARE WAITING FOR YOUR FOLLOW UP APPOINTMENT; EITHER CONTACT YOUR PRIMARY CARE DOCTOR, THE PHYSICIAN WHOSE NAME AND NUMBER YOU WERE GIVEN, OR RETURN TO THE ED IMMEDIATELY. Scripts Hydrocodone Bit/Acetaminophen (HYDROCODONE-APAP 5-325 ) 1 Tab Tablet 1 TAB PO PRN Q6HRS PRN for PAIN for 4 Days, #16 TAB 0 Refills Do not drink alcohol, drive or operate heavy machinery with this medication Prov: FRANK MILES DO 04/20/21 Metronidazole (FLAGYL) 500 Mg Tablet 1 TAB PO BID for 7 Days, #14 TAB Prov: FRANK MILES DO 04/20/21 FRANK MILES DO Apr 20, 2021 09:54
[2021-04-20 11:25] VITALS: BP 161/96
[2021-04-20] MEDS ORDERED: METR500T PO (11:33)
[2021-04-20] MEDS ORDERED: HYDR-2761 PO (11:33)
[2021-04-20] MEDS ORDERED: HYDROcodone/APAP 7.5/325MG 1 TAB TABLET PO ONE (12:30)
== END 2021-04-20 12:20 | disposition home or self-care (01) ==
LOC: ER 07:24
DX: M51.16 Intervertebral disc disorders with radiculopathy, lumbar region (principal); A59.8 Trichomoniasis of other sites; G43.909 Migraine, unspecified, not intractable, without status migrainosus; I10 Essential (primary) hypertension; Z87.891 Personal history of nicotine dependence
CPT/HCPCS: 74176; 81001; 81025; 87086; 99285-25

== ENCOUNTER 2021-10-09 16:51 | Emergency (ER) | payer BC ==
[~2021-10-09] VITALS: Ht 180.3 cm; Wt 113.3 kg
[~2021-10-09 16:51] MED LIST changes: +HYDR-2761 PO; -LISI-517 PO; +LISI5TAB15 PO; +METR500T PO; +POTA-121 PO; -POTA20TA4 PO
[2021-10-09] MEDS ORDERED: KETOROLAC 30 MG/ML VIAL. IVP ONE (20:15)
[2021-10-09 20:16] LABS: BASO # 0.1 x10^3/uL (0.0-0.2); BASO % 1 % (0-3); EOS # 0.1 x10^3/uL (0.0-0.7); EOS % 1 % (0-3); HEMOGLOBIN 12.6 g/dL (12.0-15.5); LYMPH # 1.8 x10^3/uL (1.0-4.8); LYMPH % 17 % (24-48); MEAN CORPUSCULAR HEMOGLOBIN 29 pg (25-35); MEAN CORPUSCULAR HGB CONC 33 g/dL (31-37); MEAN CORPUSCULAR VOLUME 86 fL (79-100); MONO # 0.9 x10^3/uL (0.0-1.1); MONO % 8 % (0-9); NEUT # 7.7 x10^3/uL (1.8-7.7); NEUT % 73 % (31-73); PLATELET COUNT 459 x10^3/uL (140-400); RED CELL DISTRIBUTION WIDTH 13.9 % (11.5-14.5); WHITE BLOOD COUNT 10.5 x10^3/uL (4.0-11.0)
--- NOTE | 2021-10-09 20:30 | PHYS DOC ---
Past Medical History Past Medical History: Anxiety, Hypertension, Migraines (LESLIE GOMEZ APRN) Past Surgical History: Other Additional Past Surgical Histo: breast biposy, endometrial ablation, left arm (LESLIE GOMEZ APRN) Smoking Status: Former Smoker Alcohol Use: Rarely Drug Use: None (LESLIE GOMEZ APRN) General Adult EDM: Chief Complaint: OTHER COMPLAINTS HPI: HPI: Patient is a 50-year-old female that presents today with headache, chest pain and intermediate shortness of air. Patient states that over the past 10 days patient has had intermediate chest pain or shortness of air, today she has noticed headache with bilateral ear pain. Patient denies fever. Patient states that the chest pain and shortness of air is infrequent sometimes happens when she is at rest and sometimes it happens when she is walking. (LESLIE GOMEZ APRN) Review of Systems: Review of Systems: Constitutional: Denies fever or chills. [] Eyes: Denies change in visual acuity. [] HENT: Denies nasal congestion or sore throat. [] Respiratory: Shortness of air Cardiovascular: Chest pain GI: Denies abdominal pain, nausea, vomiting, bloody stools or diarrhea. [] : Denies dysuria. [] Musculoskeletal: Denies back pain or joint pain. [] Integument: Denies rash. [] Neurologic: Headache Endocrine: Denies polyuria or polydipsia. [] Lymphatic: Denies swollen glands. [] Psychiatric: Denies depression or anxiety. [] (LESLIE GOMEZ APRN) Heart Score: C/O Chest Pain: Yes HEART Score for Chest Pain: HEART Score for Chest Pain Response (Comments) Value History Slighlty/Non-Suspicious 0 ECG Nonspecific Repolarizatio 1 Age >45 - < 65 1 Risk Factors 1 or 2 Risk Factors 1 Total 3 Risk Factors: Risk Factors: DM, Current or recent (<one month) smoker, HTN, HLP, family history of CAD, obesity. Risk Scores: Score 0 - 3: 2.5% MACE over next 6 weeks - Discharge Home Score 4 - 6: 20.3% MACE over next 6 weeks - Admit for Clinical Observation Score 7 - 10: 72.7% MACE over next 6 weeks - Early Invasive Strategies (DERKS-MARY,LESLIE TICKET CLERK) Current Medications: Current Medications Medications (Trade) Dose Ordered Sig/Celine Start Time Stop Time Status Last Admin Dose Admin Ketorolac Tromethamine (Toradol 30mg Vial) 30 mg 1X ONCE 10/09/21 20:15 10/09/21 20:16 DC 10/09/21 20:14 30 MG (LESLIE GOMEZ TICKET CLERK) Allergies: Allergies: Allergies Coded Allergies Type Severity Reaction Last Updated Verified No Known Drug Allergies 09/30/20 No (LESLIE GOMEZ APRN) Physical Exam: PE: Constitutional: Well developed, well nourished, no acute distress, non-toxic appearance. [] HENT: Normocephalic, atraumatic, bilateral external ears normal, oropharynx moist, tympanic membranes left tympanic membrane erythemic noted, right free of erythema Eyes: PERRLA, EOMI, conjunctiva normal, no discharge. [] Neck: Normal range of motion, no tenderness, supple, no stridor. [] Cardiovascular:Heart rate regular rhythm, no murmur [] Lungs & Thorax: Bilateral breath sounds clear to auscultation [] Abdomen: Bowel sounds normal, soft, no tenderness, no masses, no pulsatile masses. [] Skin: Warm, dry, no erythema, no rash. [] Back: No tenderness, no CVA tenderness. [] Extremities: No tenderness, no cyanosis, no clubbing, ROM intact, no edema. [] Neurologic: Alert and oriented X 3, normal motor function, normal sensory function, no focal deficits noted. [] Psychologic: Affect normal, judgement normal, mood normal. [] (LESLIE GOMEZ TICKET CLERK) Current Patient Data: Labs: Laboratory Tests Test 10/09/21 20:05 White Blood Count 10.5 x10^3/uL (4.0-11.0) Red Blood Count 4.40 x10^6/uL (3.50-5.40) Hemoglobin 12.6 g/dL (12.0-15.5) Hematocrit 38.0 % (36.0-47.0) Mean Corpuscular Volume 86 fL (79-100) Mean Corpuscular Hemoglobin 29 pg (25-35) Mean Corpuscular Hemoglobin Concent 33 g/dL (31-37) Red Cell Distribution Width 13.9 % (11.5-14.5) Platelet Count 459 x10^3/uL (140-400) H Neutrophils (%) (Auto) 73 % (31-73) Lymphocytes (%) (Auto) 17 % (24-48) L Monocytes (%) (Auto) 8 % (0-9) Eosinophils (%) (Auto) 1 % (0-3) Basophils (%) (Auto) 1 % (0-3) Neutrophils # (Auto) 7.7 x10^3/uL (1.8-7.7) Lymphocytes # (Auto) 1.8 x10^3/uL (1.0-4.8) Monocytes # (Auto) 0.9 x10^3/uL (0.0-1.1) Eosinophils # (Auto) 0.1 x10^3/uL (0.0-0.7) Basophils # (Auto) 0.1 x10^3/uL (0.0-0.2) Laboratory Tests 10/09/21 20:05 Vital Signs: Vital Signs Date Time Temp Pulse Resp B/P (MAP) Pulse Ox O2 Delivery O2 Flow Rate FiO2 10/09/21 17:14 98.0 75 12 155/88 (110) 98 Room Air 98.0 (LESLIE GOMEZ APRN) EKG: EKG: EKG done at [address] Delgado at 1815 sinus rhythm with T wave inversions inferiorly and in leads V3 through 6 we have a rate of 70 with a [place] interval 138 ms with a QT interval of 428 ms no STEMI. This EKG was compared to an EKG done in August 302019 which at that time did not show inverted T waves. [] (LESLIE GOMEZ TICKET CLERK) Radiology/Procedures: Radiology/Procedures: [REASON: R06.02 CHEST PAIN, SOB, R/O PE PROCEDURE: CT ANGIOGRAPHY CHEST EXAMINATION: CTA Chest With IV contrast INDICATION:50 years, Female, chest pain, shortness of breath, evaluate for pulmonary embolism. COMPARISON: 08/30/2020. TECHNIQUE: Spiral CTA was obtained from the jugular notch through the posterior costophrenic recess. 3-D MIPS, sagittal and coronal reformats were obtained. Exposure: One or more of the following individualized dose reduction techniques were utilized for this examination: 1. Automated exposure control 2. Adjustment of the mA and/or kV according to patient size 3. Use of iterative reconstruction technique. FINDINGS: LUNGS/PLEURA: Central airways are patent. Mosaic attenuations in the lower lobes. Subsegmental atelectasis versus scarring in the right middle lobe and lingula. No focal consolidation, pleural effusion or pneumothorax. There is a 4 mm pulmonary nodule in the right middle lobe, unchanged since prior exam, favors benign etiology. MEDIASTINUM: No pathologic mediastinal or hilar adenopathy. The thoracic aorta and pulmonary arteries are normal in caliber. No evidence of pulmonary embolism. The heart is normal in size. No pericardial effusion. No detectable calcified coronary atherosclerosis. The visualized thyroid and the esophagus are unrema rkable. AXILLA/SOFT TISSUE: No supraclavicular or axillary adenopathy. Unchanged multiple lobulated cystic lesions in both breasts, the largest in the right side measures 7.2 x 3.0 cm. UPPER ABDOMEN: The visualized upper abdomen appears unremarkable. BONES: No evidence of acute fractures or aggressive osseous lesions. Multilevel degenerative changes in the spine. IMPRESSION: 1. No evidence of pulmonary embolism. 2. Mosaic attenuations in the lower lobes, likely representing air trapping. 3. Redemonstrated multiple lobulated cystic lesions in both breasts, similar to prior exam. Recommend correlation with mammography. Electronically signed by: Nisa Bales MD (10/09/2021 10:12 PM) [facility] (LESLIE GOMEZ APRN) Course & Med Decision Making: Course & Med Decision Making Pertinent Labs and Imaging studies reviewed. (See chart for details) 2320 spoke to patient regarding her laboratory and radiology results. Informed her that her results were negative for any acute process at this time. Patient states she still continues to have a headache, patient does have erythema both tympanic membranes which can contribute to the headache we will treat her for antibiotics and will give her ibuprofen as needed for pain. We will also have patient follow-up with her primary care physician in 5 to 7 days. (LESLIE GOMEZ APRN) Dragon Disclaimer: Dragon Disclaimer: This electronic medical record was generated, in whole or in part, using a voice recognition dictation system. (LESLIE GOMEZ APRN) Departure Departure Impression: Primary Impression: Otitis media Qualified Codes: H66.90 - Otitis media, unspecified, unspecified ear Additional Impression: Headache Qualified Codes: R51.9 - Headache, unspecified Disposition: 01 HOME / SELF CARE / HOMELESS Condition: STABLE Referrals: STEPHANIE MCGRATH DO (PCP) Patient Instructions: General Headache Without Cause, Otitis Media, Adult Additional Instructions: Augmentin 1 tablet twice daily for 7 days Motrin 600 mg take 1 tablet every 6 hours as needed for headache or pain May take [id number] decongestant such as Benadryl to help with sleep and headache. Follow-up with your primary care physician in the next 5 to 7 days as needed for continued pain. Scripts Ibuprofen (IBUPROFEN) 600 Mg Tablet 600 MG PO PRN Q6HRS PRN for INFLAMMATION, #20 TAB Prov: LESLIE GOMEZ TICKET CLERK 10/09/21 Amoxicillin/Potassium Clav (AUGMENTIN 875-125 TABLET) 1 Each Tablet 1 TAB PO BID for 10 Days, #20 TAB 0 Refills Prov: LESLIE GOMEZ TICKET CLERK 10/09/21 Attending Signature Attending Signature I have reviewed the PA/SLASHER TENDER's note and plan of care. I was available for consultation as needed during the patient's visit in the emergency department. I agree with the clinical impression, plan, and disposition. (JOSE EDUARDO JAQUEZ DO) LESLIE GOMEZ TICKET CLERK Oct 09, 2021 20:30 JOSE EDUARDO JAQUEZ DO Oct 11, 2021 18:59
[2021-10-09 20:33] LABS: CALCIUM 8.5 mg/dL (8.5-10.1); CREATININE 0.7 mg/dL (0.6-1.0); GFR 107.2; POTASSIUM 3.9 mmol/L (3.5-5.1)
[2021-10-09 20:39] LABS: ALBUMIN 3.3 g/dL (3.4-5.0); ALBUMIN/GLOBULIN RATIO 0.8 (1.0-1.7); TOTAL BILIRUBIN 0.3 mg/dL (0.2-1.0); TOTAL PROTEIN 7.3 g/dL (6.4-8.2)
[2021-10-09] MEDS ORDERED: IOHEXOL 350 MG/ML 100 ML VIAL. IV ONE (21:00)
--- NOTE | 2021-10-09 22:14 | RAD ---
EXAMINATION: CTA Chest With IV contrast INDICATION:50 years, Female, chest pain, shortness of breath, evaluate for pulmonary embolism. COMPARISON: 08/30/2020. TECHNIQUE: Spiral CTA was obtained from the jugular notch through the posterior costophrenic recess. 3-D MIPS, sagittal and coronal reformats were obtained. Exposure: One or more of the following individualized dose reduction techniques were utilized for thi s examination: 1. Automated exposure control 2. Adjustment of the mA and/or kV according to patient size 3. Use of iterative reconstruction technique. FINDINGS: LUNGS/PLEURA: Central airways are patent. Mosaic attenuations in the lower lobes. Subsegmental atelec tasis versus scarring in the right middle lobe and lingula. No focal consolidation, pleural effusion or pneumothorax. There is a 4 mm pulmonary nodule in the right middle lobe, unchanged since prior exa m, favors benign etiology. MEDIASTINUM: No pathologic mediastinal or hilar adenopathy. The thoracic aorta and pulmonary arteries are normal in caliber. No evidence of pulmonary embolism. The heart is normal in size. No pericardia l effusion. No detectable calcified coronary atherosclerosis. The visualized thyroid and the esophagu s are unremarkable. AXILLA/SOFT TISSUE: No supraclavicular or axillary adenopathy. Unchanged multiple lobulated cystic le sions in both breasts, the largest in the right side measures 7.2 x 3.0 cm. UPPER ABDOMEN: The visualized upper abdomen appears unremarkable. BONES: No evidence of acute fractures or aggressive osseous lesions. Multilevel degenerative changes in the spine. IMPRESSION: 1. No evidence of pulmonary embolism. 2. Mosaic attenuations in the lower lobes, likely representing air trapping. 3. Redemonstrated multiple lobulated cystic lesions in both breasts, similar to prior exam. Recommen d correlation with mammography. Electronically signed by: Nisa Bales MD (10/09/2021 10:12 PM) [facility]
[2021-10-09] MEDS ORDERED: AMOX1TAB61 PO (23:28)
[2021-10-09] MEDS ORDERED: IBUP-1007 PO (23:28)
[2021-10-09] MEDS ORDERED: ACETAMINOPHEN 500 MG TABLET PO ONE (23:45)
[2021-10-10] VITALS: BP 120/68
--- NOTE | 2021-10-10 02:55 | EKG ---
[facility] [address] [place] [id number] Test Date: 2021-10-09 Test Time: 18:10:59 Pat Name: MARYBEL WATERMAN Department: Room: Gender: F Processing Associate: : 1970 Requested By: LESLIE GOMEZ Order Number: [id number] Reading MD: Juan Quiles Measurements Intervals [place] Rate: 70 P: 40 MI: 138 QRS: -6 QRSD: 94 T: -39 QT: 394 QTc: 428 Interpretive Statements SINUS RHYTHM LEFTWARD AXIS T ABNORMALITY IN ANTERIOR LEADS INFEROLATERAL LEADS ABNORMAL ECG Electronically Signed On 10-11-2021 10:20:38 STEEL FABRIC[employer] by Juan Quiles
--- NOTE | 2021-10-12 16:23 | NUR ---
IP: Informed pt of negative covid test. Pt verbalized understanding.
== END 2021-10-10 00:09 | disposition home or self-care (01) ==
LOC: ER 16:51
DX: G43.909 Migraine, unspecified, not intractable, without status migrainosus (principal); H66.93 Otitis media, unspecified, bilateral; R07.89 Other chest pain; I10 Essential (primary) hypertension; Z87.891 Personal history of nicotine dependence
CPT/HCPCS: 36415; 71275; 80053; 84484; 85025; 87426; 93005; 96374; 99285; J1885; Q9967; U0003; U0005